=== PATIENT | female | born 1970 | race Caucasian/White ===

== ENCOUNTER → 2018-01-30 | Outpatient (CLI) | payer OTHER ==
[~2018-01-30] MED LIST: ACET80 PO; ALBIPROI INH; ALBU90OI INH; ALBU90OI6 INH; AMIT50 PO; AZIT250 PO; AZIT500 PO; Antivert25 MG PO; BENTYL10 MG PO; BUDE200IP INH; BUSP5 PO; BUTALB-ASPIRIN1 EACH PO; Bactrim Ds Tab1 EACH PO; CEPH500 PO; CLON.1; CLON.1 PO; CODACE30 PO; CODGUAEL PO; CRUTCH2 XX; CRUTCH4 USE; CYCL10 PO; Colace100 MG PO; Colace250 MG PO; DEPAKOTE; DIAZ5 PO; DIBU30TO PR; DIVA250EC; DIVA250EC PO; DIVA500EC; DIVA500EC PO; DOXY100 PO; ESCI10; ESCI10 PO; ESCI20 PO; ESCI5; Esgic Tablet1 EACH PO; GUAI100SY PO; GUAPHELA PO; HYDACE25S PR; HYDACE5; HYDACE5 PO; HYDCHL25; HYDCOR2.5C PR; HYDGUAL120 PO; HYDHCL25 PO; HYDPAM25 PO; HYDR1TAB94; IBUP600; IBUP600 PO; Imitrex50 MG PO; LEVE500 PO; LIDO5TP TOP; LIDO700A20 TOP; LIDOCAINE HCL5 ML TOP; Macrobid 100 M100 MG PO; NAPR500 PO; ONDA4ODT MM; OXYACE5T PO; OXYC5 PO; PANT40; PANT40 PO; PRED10; PROACE100; PROACE100 PO; PROM25; PROM25 PO; PROP10 PO; Pepcid40 MG PO; Percocet 5-3251 EACH PO; Pyridium100 MG PO; Pyridium200 MG PO; QUET100; QUET100 PO; RANI150; RANI150 PO; RXCEPH500 PO; RXCODACET PO; RXHYDACE PO; RXOXYACE PO; RXPROACE PO; RXSULTRIDS PO; RXTRAM50 PO; SUCR1 PO; SULTRIDS PO; SUMA25 PO; TRAM50 PO; Ultram50 MG PO; Valium5 MG PO; Zofran Odt4 MG SL
== END | disposition home or self-care (01) ==
LOC: LAB EV 13:21
DX: R21 Rash and other nonspecific skin eruption (principal)
CPT/HCPCS: 87070; 87077; 87147; 87186; 87205

== ENCOUNTER 2018-07-10 19:29 | Emergency (ER) | payer OTHER ==
[~2018-07-10] VITALS: Ht 157.5 cm; Wt 65.8 kg
[~2018-07-10 19:29] MED LIST changes: -LIDO700A20 TOP; -Macrobid 100 M100 MG PO; -Pyridium100 MG PO
[2018-07-10 20:17] LABS: BASOPHILS ABSOLUTE AUTO 0.07 K/mm3 (0.00-0.23); BASOPHILS PERCENT AUTO 1 % (0-2); EOSINOPHILS ABSOLUTE AUTO 0.36 K/mm3 (0.00-0.68); EOSINOPHILS PERCENT AUTO 4 % (0-6); Hemoglobin 13.9 g/dL (11.5-16.0); IMMATURE GRAN ABSOLUTE AUTO 0.02 K/mm3 (0.00-0.10); IMMATURE GRAN PERCENT AUTO 0 % (0-1); LYMPHOCYTES PERCENT AUTO 43 % (21-46); MONOCYTES ABSOLUTE AUTO 0.71 K/mm3 (0.16-1.47); MONOCYTES PERCENT AUTO 7 % (4-13); Mean Corpuscular HGB 28.3 pg (26.0-34.0); Mean Corpuscular HGB Conc 33.1 g/dL (31.5-36.5); Mean Corpuscular Volume 85 fL (80-100); Mean Platelet Volume 9.3 fL (9.1-12.4); NEUTROPHILS ABSOLUTE AUTO 4.58 K/mm3 (1.96-9.15); NEUTROPHILS PERCENT AUTO 45 % (41-73); Platelet Count 277 K/mm3 (150-400); RDW Coefficient Variation 13.2 % (11.7-14.2); RDW Standard Deviation 41.8 fL (35.1-46.3); Red Blood Cell Count 4.92 M/mm3 (3.80-5.20); White Blood Cell Count 10.14 K/mm3 (4.00-11.30)
[2018-07-10 20:18] LABS: Source, Urine Clean Catch
[2018-07-10 20:22] LABS: Bilirubin, Urine Neg (Neg); Blood, Urine 5+ (Neg); Glucose Qualitative, Urine Neg (Neg); Ketones, Urine Neg (Neg); Leukocyte Esterase, Urine Neg (Neg); Nitrite, Urine Neg (Neg); Protein, Urine 1+ (Neg); Urobilinogen, Urine NORM (Normal); pH, Urine 6.5 (5.0-8.0)
[2018-07-10 20:31] LABS: Appearance, Urine Cloudy (Clear); Color, Urine Yellow (P-Yellow)
[2018-07-10 20:33] LABS: Squamous Epithelial Cells Mod /hpf (Few); White Blood Cells, Urine 0-2 /hpf (0-5)
[2018-07-10 20:34] LABS: Bacteria Few /hpf
[2018-07-10 20:43] LABS: Alanine Aminotransfer (ALT/SGP 55 U/L (12-78); Albumin, Blood 3.6 g/dL (3.4-5.0); Albumin/Globulin Ratio 0.9 (0.8-1.8); Alk Phos 127 U/L (50-136); Anion Gap 8 mmol/L (6-16); Aspartate Aminotrans (AST/SGOT 34 U/L (12-37); Bilirubin, Total 0.4 mg/dL (0.1-1.0); Blood Urea Nitrogen 8 mg/dL (8-24); Bun/Creatinine Ratio 11.6 (12.0-20.0); CO2, Blood 28 mmol/L (21-32); Calcium, Blood 9.2 mg/dL (8.5-10.1); Chloride, Blood 105 mmol/L (98-108); Creatinine, Blood 0.69 mg/dL (0.40-1.00); Glomerular Filtration Rate >60 (60-); Glucose, Blood 97 mg/dL (70-99); Potassium, Blood 3.7 mmol/L (3.5-5.5); Sodium, Blood 141 mmol/L (136-145); Total Protein, Blood 7.6 g/dL (6.4-8.2)
[2018-07-10] MEDS ORDERED: Macrobid 100 M100 MG PO (23:06)
[2018-07-10] MEDS ORDERED: Pyridium100 MG PO (23:06)
== END 2018-07-10 23:26 | disposition home or self-care (01) ==
LOC: ER 19:29
PROVIDERS: Emergency Medicine
DX: R31.9 Hematuria, unspecified (principal); R10.30 Lower abdominal pain, unspecified; F31.9 Bipolar disorder, unspecified; J44.9 Chronic obstructive pulmonary disease, unspecified; I10 Essential (primary) hypertension; F17.210 Nicotine dependence, cigarettes, uncomplicated; Z88.0 Allergy status to penicillin; Z88.5 Allergy status to narcotic agent; Z88.6 Allergy status to analgesic agent; Z88.8 Allergy status to other drugs, medicaments and biological substances; Z91.030 Bee allergy status; Z88.2 Allergy status to sulfonamides; Z79.899 Other long term (current) drug therapy
CPT/HCPCS: 36415; 74176; 80053; 81001; 83690; 85025; 99284-25

== ENCOUNTER 2018-08-02 10:37 | Emergency (ER) | payer OTHER ==
[~2018-08-02] VITALS: Ht 160 cm; Wt 60.3 kg
[~2018-08-02 10:37] MED LIST changes: +Macrobid 100 M100 MG PO; +Pyridium100 MG PO
[2018-08-02] MEDS ORDERED: LIDO700A20 TOP (12:01)
== END 2018-08-02 12:05 | disposition home or self-care (01) ==
LOC: ER 10:37
DX: S20.212A Contusion of left front wall of thorax, initial encounter (principal); F31.9 Bipolar disorder, unspecified; J44.9 Chronic obstructive pulmonary disease, unspecified; I10 Essential (primary) hypertension; F17.200 Nicotine dependence, unspecified, uncomplicated; Z88.0 Allergy status to penicillin; Z88.5 Allergy status to narcotic agent; Z88.6 Allergy status to analgesic agent; Z88.2 Allergy status to sulfonamides; Z91.030 Bee allergy status; Z88.8 Allergy status to other drugs, medicaments and biological substances; Z79.899 Other long term (current) drug therapy; W19.XXXA Unspecified fall, initial encounter
CPT/HCPCS: 71046; 71100

== ENCOUNTER 2018-08-03 20:29 | Emergency (ER) | payer OTHER ==
[~2018-08-03] VITALS: Ht 154.9 cm; Wt 60.3 kg
[~2018-08-03 20:29] MED LIST changes: +LIDO700A20 TOP
== END 2018-08-03 23:34 | disposition home or self-care (01) ==
LOC: ER 20:29
DX: M54.6 Pain in thoracic spine (principal); M25.511 Pain in right shoulder; M25.512 Pain in left shoulder; F31.9 Bipolar disorder, unspecified; J44.9 Chronic obstructive pulmonary disease, unspecified; I10 Essential (primary) hypertension; F17.200 Nicotine dependence, unspecified, uncomplicated; Z88.0 Allergy status to penicillin; Z88.8 Allergy status to other drugs, medicaments and biological substances; Z88.6 Allergy status to analgesic agent; Z88.2 Allergy status to sulfonamides; Z91.030 Bee allergy status; Z79.899 Other long term (current) drug therapy; Y08.89XA Assault by other specified means, initial encounter
CPT/HCPCS: 71046; 72070; 72100; 99283-25

== ENCOUNTER 2018-11-28 12:17 | Day surgery (SDC) | payer OTHER ==
[~2018-11-28] VITALS: Ht 154.9 cm; Wt 61.2 kg
[~2018-11-28 12:17] MED LIST changes: +ACET500 PO; +BUDE.25 NEB; +EPIPEN0.3 MG/0.3 IM
[2018-11-28] MEDS ORDERED: GABA100 PO (12:57)
== END 2018-11-28 14:36 | disposition home or self-care (01) ==
LOC: ORSCSDS 12:17
PROVIDERS: Surgery
PROC: 0DBM8ZX Excision of Descending Colon, Via Natural or Artificial Opening Endoscopic, Diagnostic (ICD-10-PCS; principal; 2018-11-28 13:30)
PROC: 0DBN8ZX Excision of Sigmoid Colon, Via Natural or Artificial Opening Endoscopic, Diagnostic (ICD-10-PCS; principal; 2018-11-28 13:30)
DX: R19.4 Change in bowel habit (principal); K63.5 Polyp of colon; G40.209 Localization-related (focal) (partial) symptomatic epilepsy and epileptic syndromes with complex partial seizures, not intractable, without status epilepticus; R62.59 Other lack of expected normal physiological development in childhood; F25.9 Schizoaffective disorder, unspecified; J45.909 Unspecified asthma, uncomplicated; Z79.899 Other long term (current) drug therapy; Z87.891 Personal history of nicotine dependence
CPT/HCPCS: 88305; J2405; J7120

== ENCOUNTER 2018-11-30 08:43 | Emergency (ER) | payer OTHER ==
[~2018-11-30] VITALS: Ht 154.9 cm; Wt 64.0 kg
[~2018-11-30 08:43] MED LIST changes: +GABA100 PO
[2018-11-30] MEDS ORDERED: Zantac150 MG (09:29)
[2018-11-30 10:17] LABS: BASOPHILS ABSOLUTE AUTO 0.06 K/mm3 (0.00-0.23); BASOPHILS PERCENT AUTO 1 % (0-2); EOSINOPHILS ABSOLUTE AUTO 0.15 K/mm3 (0.00-0.68); EOSINOPHILS PERCENT AUTO 2 % (0-6); Hematocrit 44.6 % (33.0-51.0); Hemoglobin 14.6 g/dL (11.5-16.0); IMMATURE GRAN ABSOLUTE AUTO 0.01 K/mm3 (0.00-0.10); IMMATURE GRAN PERCENT AUTO 0 % (0-1); LYMPHOCYTES ABSOLUTE AUTO 3.52 K/mm3 (0.84-5.20); LYMPHOCYTES PERCENT AUTO 45 % (21-46); MONOCYTES ABSOLUTE AUTO 0.47 K/mm3 (0.16-1.47); MONOCYTES PERCENT AUTO 6 % (4-13); Mean Corpuscular HGB 28.5 pg (26.0-34.0); Mean Corpuscular HGB Conc 32.7 g/dL (31.5-36.5); Mean Corpuscular Volume 87 fL (80-100); NEUTROPHILS ABSOLUTE AUTO 3.57 K/mm3 (1.96-9.15); NEUTROPHILS PERCENT AUTO 46 % (41-73); RDW Standard Deviation 41.1 fL (35.1-46.3); Red Blood Cell Count 5.13 M/mm3 (3.80-5.20); White Blood Cell Count 7.78 K/mm3 (4.00-11.30)
[2018-11-30 10:25] LABS: Platelet Count 92 K/mm3 (150-400)
[2018-11-30 10:36] LABS: Alanine Aminotransfer (ALT/SGP 39 U/L (12-78); Albumin, Blood 4.3 g/dL (3.4-5.0); Albumin/Globulin Ratio 1.1 (0.8-1.8); Alk Phos 122 U/L (50-136); Anion Gap 8 mmol/L (6-16); Aspartate Aminotrans (AST/SGOT 25 U/L (12-37); Blood Urea Nitrogen 10 mg/dL (8-24); Bun/Creatinine Ratio 16.2 (12.0-20.0); CO2, Blood 25 mmol/L (21-32); Calcium, Blood 9.3 mg/dL (8.5-10.1); Chloride, Blood 107 mmol/L (98-108); Creatinine, Blood 0.62 mg/dL (0.40-1.00); Globulin, Blood 3.9 g/dL (2.2-4.0); Glomerular Filtration Rate >60 (60-); Glucose, Blood 81 mg/dL (70-99); Potassium, Blood 3.8 mmol/L (3.5-5.5); Sodium, Blood 140 mmol/L (136-145); Total Protein, Blood 8.2 g/dL (6.4-8.2)
== END 2018-11-30 11:17 | disposition home or self-care (01) ==
LOC: ER 08:43
PROVIDERS: Physician Assistant
DX: R56.9 Unspecified convulsions (principal); J44.9 Chronic obstructive pulmonary disease, unspecified; I10 Essential (primary) hypertension; G43.909 Migraine, unspecified, not intractable, without status migrainosus; F17.200 Nicotine dependence, unspecified, uncomplicated
CPT/HCPCS: 36415; 80053; 85025; 96372; 99284-25; J1885

== ENCOUNTER → 2019-05-23 | Outpatient (CLI) | payer OTHER ==
[~2019-05-23] MED LIST changes: +Acetaminophen325 M1 PO; +LOSARTAN POTASS50 MG PO; +Oxybutynin Chlor5 M1 PO; +Zantac150 MG PO; +Zofran8 MG PO
== END | disposition home or self-care (01) ==
LOC: LAB SHORT 16:30 → LAB 16:30
DX: M79.672 Pain in left foot (principal)
CPT/HCPCS: 84550

== ENCOUNTER 2019-05-25 11:01 | Emergency (ER) | payer OTHER ==
[~2019-05-25] VITALS: Ht 154.9 cm; Wt 62.6 kg
[~2019-05-25 11:01] MED LIST changes: -Acetaminophen325 M1 PO; -LOSARTAN POTASS50 MG PO; -Oxybutynin Chlor5 M1 PO; -Zofran8 MG PO
[2019-05-25] MEDS ORDERED: LOSARTAN POTASS50 MG PO (12:30)
[2019-05-25] MEDS ORDERED: CYCL10 PO (12:31)
[2019-05-25] MEDS ORDERED: Oxybutynin Chlor5 M1 PO (12:31)
[2019-05-25] MEDS ORDERED: HYDPAM25 PO (12:32)
[2019-05-25 12:36] LABS: BASOPHILS ABSOLUTE AUTO 0.06 K/mm3 (0.00-0.23); BASOPHILS PERCENT AUTO 1 % (0-2); EOSINOPHILS ABSOLUTE AUTO 0.22 K/mm3 (0.00-0.68); EOSINOPHILS PERCENT AUTO 2 % (0-6); Hematocrit 38.5 % (33.0-51.0); IMMATURE GRAN ABSOLUTE AUTO 0.04 K/mm3 (0.00-0.10); IMMATURE GRAN PERCENT AUTO 0 % (0-1); LYMPHOCYTES ABSOLUTE AUTO 3.42 K/mm3 (0.84-5.20); LYMPHOCYTES PERCENT AUTO 29 % (21-46); MONOCYTES PERCENT AUTO 4 % (4-13); Mean Corpuscular HGB 29.7 pg (26.0-34.0); Mean Corpuscular HGB Conc 33.8 g/dL (31.5-36.5); Mean Corpuscular Volume 88 fL (80-100); Mean Platelet Volume 8.7 fL (9.1-12.4); NEUTROPHILS ABSOLUTE AUTO 7.52 K/mm3 (1.96-9.15); NEUTROPHILS PERCENT AUTO 64 % (41-73); Platelet Count 245 K/mm3 (150-400); RDW Standard Deviation 41.6 fL (35.1-46.3); Red Blood Cell Count 4.37 M/mm3 (3.80-5.20); White Blood Cell Count 11.76 K/mm3 (4.00-11.30)
[2019-05-25 12:56] LABS: Alanine Aminotransfer (ALT/SGP 44 U/L (12-78); Albumin, Blood 3.7 g/dL (3.4-5.0); Alk Phos 119 U/L (50-136); Anion Gap 5 mmol/L (6-16); Aspartate Aminotrans (AST/SGOT 20 U/L (12-37); Bilirubin, Total 0.4 mg/dL (0.1-1.0); Blood Urea Nitrogen 8 mg/dL (8-24); CO2, Blood 28 mmol/L (21-32); Chloride, Blood 109 mmol/L (98-108); Creatinine, Blood 0.57 mg/dL (0.40-1.00); Globulin, Blood 3.6 g/dL (2.2-4.0); Glomerular Filtration Rate >60 (60-); Glucose, Blood 89 mg/dL (70-99); Potassium, Blood 3.9 mmol/L (3.5-5.5); Sodium, Blood 142 mmol/L (136-145); Total Protein, Blood 7.3 g/dL (6.4-8.2)
[2019-05-25] MEDS ORDERED: Zofran8 MG PO (13:40)
[2019-05-25] MEDS ORDERED: Acetaminophen325 M1 PO (13:40)
== END 2019-05-25 13:46 | disposition home or self-care (01) ==
LOC: ER 11:01
PROVIDERS: Emergency Medicine
DX: S93.602A Unspecified sprain of left foot, initial encounter (principal); F31.9 Bipolar disorder, unspecified; J44.9 Chronic obstructive pulmonary disease, unspecified; Z88.0 Allergy status to penicillin; Z88.6 Allergy status to analgesic agent; Z88.2 Allergy status to sulfonamides; Z88.5 Allergy status to narcotic agent; Z91.030 Bee allergy status; Z88.8 Allergy status to other drugs, medicaments and biological substances; I10 Essential (primary) hypertension; G43.909 Migraine, unspecified, not intractable, without status migrainosus; F17.200 Nicotine dependence, unspecified, uncomplicated; W01.0XXA Fall on same level from slipping, tripping and stumbling without subsequent striking against object, initial encounter
CPT/HCPCS: 36415; 73630; 80053; 83690; 85025; 96361; 96374; 99283-25; J2405; J7120

== ENCOUNTER 2019-06-06 13:50 | Emergency (ER) | payer OTHER ==
[~2019-06-06] VITALS: Ht 154.9 cm; Wt 62.6 kg
[~2019-06-06 13:50] MED LIST changes: +Acetaminophen325 M1 PO; +LOSARTAN POTASS50 MG PO; +Oxybutynin Chlor5 M1 PO; +Zofran8 MG PO
== END 2019-06-06 17:44 | disposition left against medical advice (07) ==
LOC: ER 13:50
DX: Z53.21 Procedure and treatment not carried out due to patient leaving prior to being seen by health care provider (principal)

== ENCOUNTER 2019-11-02 21:10 | Emergency (ER) | payer OTHER ==
[~2019-11-02] VITALS: Ht 154.9 cm; Wt 75.8 kg
[2019-11-02 21:42] LABS: Source, Urine Clean Catch
[2019-11-02 21:43] LABS: BASOPHILS ABSOLUTE AUTO 0.06 K/mm3 (0.00-0.23); BASOPHILS PERCENT AUTO 1 % (0-2); EOSINOPHILS ABSOLUTE AUTO 0.29 K/mm3 (0.00-0.68); EOSINOPHILS PERCENT AUTO 3 % (0-6); Hematocrit 40.6 % (33.0-51.0); Hemoglobin 13.3 g/dL (11.5-16.0); IMMATURE GRAN ABSOLUTE AUTO 0.02 K/mm3 (0.00-0.10); IMMATURE GRAN PERCENT AUTO 0 % (0-1); LYMPHOCYTES ABSOLUTE AUTO 3.24 K/mm3 (0.84-5.20); LYMPHOCYTES PERCENT AUTO 34 % (21-46); MONOCYTES ABSOLUTE AUTO 0.56 K/mm3 (0.16-1.47); MONOCYTES PERCENT AUTO 6 % (4-13); Mean Corpuscular HGB 28.2 pg (26.0-34.0); Mean Corpuscular HGB Conc 32.8 g/dL (31.5-36.5); Mean Corpuscular Volume 86 fL (80-100); Mean Platelet Volume 9.2 fL (9.1-12.4); NEUTROPHILS ABSOLUTE AUTO 5.28 K/mm3 (1.96-9.15); NEUTROPHILS PERCENT AUTO 56 % (41-73); Platelet Count 240 K/mm3 (150-400); RDW Standard Deviation 41.1 fL (35.1-46.3); Red Blood Cell Count 4.71 M/mm3 (3.80-5.20); White Blood Cell Count 9.45 K/mm3 (4.00-11.30)
[2019-11-02 21:44] LABS: Appearance, Urine Clear (Clear); Bilirubin, Urine Neg (Neg); Blood, Urine 1+ (Neg); Color, Urine Yellow (P-Yellow); Glucose Qualitative, Urine Neg (Neg); Ketones, Urine Neg (Neg); Leukocyte Esterase, Urine Neg (Neg); Nitrite, Urine Neg (Neg); Protein, Urine Neg (Neg); Urobilinogen, Urine NORM (Normal)
[2019-11-02 21:53] LABS: Bacteria Few /hpf; Squamous Epithelial Cells Few /hpf (Few); White Blood Cells, Urine 0-2 /hpf (0-5)
[2019-11-02 22:03] LABS: Alanine Aminotransfer (ALT/SGP 37 U/L (12-78); Albumin/Globulin Ratio 1.1 (0.8-1.8); Alk Phos 98 U/L (50-136); Anion Gap 5 mmol/L (6-16); Aspartate Aminotrans (AST/SGOT 20 U/L (12-37); Bilirubin, Total 0.3 mg/dL (0.1-1.0); Blood Urea Nitrogen 11 mg/dL (8-24); Bun/Creatinine Ratio 17.5 (12.0-20.0); CO2, Blood 29 mmol/L (21-32); Calcium, Blood 9.5 mg/dL (8.5-10.1); Chloride, Blood 108 mmol/L (98-108); Creatinine, Blood 0.63 mg/dL (0.40-1.00); Globulin, Blood 3.6 g/dL (2.2-4.0); Glomerular Filtration Rate >60 (60-); Glucose, Blood 105 mg/dL (70-99); Sodium, Blood 142 mmol/L (136-145); Total Protein, Blood 7.6 g/dL (6.4-8.2); Troponin I <0.015 ng/mL (0.000-0.040)
[2019-11-02] MEDS ORDERED: DIVA500EC PO (22:39)
[2019-11-05 14:34] LABS: Valproic Acid 3.4 ug/mL (50.0-100.0)
== END 2019-11-02 22:59 | disposition home or self-care (01) ==
LOC: ER 21:10
PROVIDERS: Family Medicine; Physician Assistant
DX: R56.9 Unspecified convulsions (principal); I10 Essential (primary) hypertension; F31.9 Bipolar disorder, unspecified; J44.9 Chronic obstructive pulmonary disease, unspecified; F17.200 Nicotine dependence, unspecified, uncomplicated; Z86.73 Personal history of transient ischemic attack (TIA), and cerebral infarction without residual deficits; Z79.899 Other long term (current) drug therapy; Z79.51 Long term (current) use of inhaled steroids
CPT/HCPCS: 36415; 74022; 80053; 80164; 81001; 83690; 84484; 85025; 93005; 93010; 96374; 99284-25; J2405

== ENCOUNTER 2019-11-13 20:14 | Observation (INO) | payer OTHER ==
[~2019-11-13] VITALS: Ht 154.9 cm; Wt 65.8 kg
[2019-11-13 20:53] LABS: Source, Urine Clean Catch
[2019-11-13 20:56] LABS: BASOPHILS ABSOLUTE AUTO 0.06 K/mm3 (0.00-0.23); BASOPHILS PERCENT AUTO 1 % (0-2); EOSINOPHILS ABSOLUTE AUTO 0.15 K/mm3 (0.00-0.68); EOSINOPHILS PERCENT AUTO 2 % (0-6); Hematocrit 42.2 % (33.0-51.0); IMMATURE GRAN ABSOLUTE AUTO 0.03 K/mm3 (0.00-0.10); IMMATURE GRAN PERCENT AUTO 0 % (0-1); LYMPHOCYTES ABSOLUTE AUTO 3.84 K/mm3 (0.84-5.20); LYMPHOCYTES PERCENT AUTO 37 % (21-46); MONOCYTES ABSOLUTE AUTO 0.72 K/mm3 (0.16-1.47); MONOCYTES PERCENT AUTO 7 % (4-13); Mean Corpuscular HGB 28.1 pg (26.0-34.0); Mean Corpuscular HGB Conc 33.2 g/dL (31.5-36.5); Mean Corpuscular Volume 85 fL (80-100); Mean Platelet Volume 9.5 fL (9.1-12.4); NEUTROPHILS ABSOLUTE AUTO 5.52 K/mm3 (1.96-9.15); NEUTROPHILS PERCENT AUTO 53 % (41-73); Platelet Count 252 K/mm3 (150-400); RDW Standard Deviation 40.3 fL (35.1-46.3); Red Blood Cell Count 4.98 M/mm3 (3.80-5.20); White Blood Cell Count 10.32 K/mm3 (4.00-11.30)
[2019-11-13 20:58] LABS: Bilirubin, Urine Neg (Neg); Blood, Urine 4+ (Neg); Glucose Qualitative, Urine Neg (Neg); Ketones, Urine 1+ (Neg); Leukocyte Esterase, Urine 1+ (Neg); Nitrite, Urine Neg (Neg); Protein, Urine Neg (Neg); Urobilinogen, Urine NORM (Normal)
[2019-11-13 21:08] LABS: Appearance, Urine Clear (Clear); Color, Urine Yellow (P-Yellow)
[2019-11-13 21:09] LABS: White Blood Cells, Urine 0-2 /hpf (0-5)
[2019-11-13 21:10] LABS: Bacteria Few /hpf; Mucus Light (0-Heavy); Squamous Epithelial Cells Mod /hpf (Few)
[2019-11-13 21:12] LABS: U Amphetamine Screen Not Detected; U Barbituate Screen Not Detected; U Benzodiazapine Screen Not Detected; U Buprenorphine Screen Not Detected; U Cannabinoids Screen DETECTED; U Cocaine Screen Not Detected; U Methadone Screen Not Detected; U Methamphetamine Screen Not Detected; U Opiates Screen Not Detected; U Oxycodone Screen Not Detected; U Phencyclidine Screen Not Detected; U Propoxyphene Screen Not Detected
[2019-11-13 21:15] LABS: Ethanol (Alcohol), Blood, Med <3 mg/dL; Salicylate 3.9 mg/dL (2.8-20.0)
[2019-11-13 21:16] LABS: Alanine Aminotransfer (ALT/SGP 30 U/L (12-78); Albumin, Blood 4.1 g/dL (3.4-5.0); Alk Phos 103 U/L (50-136); Anion Gap 6 mmol/L (6-16); Aspartate Aminotrans (AST/SGOT 22 U/L (12-37); Bilirubin, Total 0.4 mg/dL (0.1-1.0); Blood Urea Nitrogen 12 mg/dL (8-24); Bun/Creatinine Ratio 17.8 (12.0-20.0); CO2, Blood 25 mmol/L (21-32); Calcium, Blood 9.3 mg/dL (8.5-10.1); Chloride, Blood 111 mmol/L (98-108); Creatinine, Blood 0.68 mg/dL (0.40-1.00); Globulin, Blood 4.1 g/dL (2.2-4.0); Glomerular Filtration Rate >60 (60-); Glucose, Blood 110 mg/dL (70-99); Potassium, Blood 3.8 mmol/L (3.5-5.5); Sodium, Blood 142 mmol/L (136-145); Total Protein, Blood 8.2 g/dL (6.4-8.2)
[2019-11-13 21:23] LABS: Acetaminophen, Random <2.0 ug/mL (10.0-30.0)
[2019-11-13] MEDS ORDERED: MELATONIN10 M2 PO (21:49)
[2019-11-14 10:46] LABS: Valproic Acid 24.2 ug/mL (50.0-100.0)
[2019-11-14] MEDS ORDERED: GABA300 PO (11:48)
[2019-11-14] MEDS ORDERED: ABILIFY MYCITE10 MG PO (11:49)
[2019-11-14] MEDS ORDERED: ONDA4 PO (11:50)
[2019-11-14] MEDS ORDERED: OMEPRAZOLE20 MG PO (11:50)
[2019-11-14] MEDS ORDERED: SUMA25 PO (11:51)
== END 2019-11-15 12:25 | disposition home or self-care (01) ==
LOC: ER 20:14 → EOR 20:15 → ER 11-14 04:17 → EOR 11-14 04:17
PROVIDERS: Physician Assistant; ADMIT Emergency Medicine
DX: F31.62 Bipolar disorder, current episode mixed, moderate (principal); F41.9 Anxiety disorder, unspecified; F12.10 Cannabis abuse, uncomplicated; F17.210 Nicotine dependence, cigarettes, uncomplicated; F70 Mild intellectual disabilities; J44.9 Chronic obstructive pulmonary disease, unspecified; I10 Essential (primary) hypertension; G89.29 Other chronic pain; M54.9 Dorsalgia, unspecified; G43.909 Migraine, unspecified, not intractable, without status migrainosus; G40.909 Epilepsy, unspecified, not intractable, without status epilepticus; Z79.899 Other long term (current) drug therapy; Z88.0 Allergy status to penicillin; Z88.2 Allergy status to sulfonamides; Z88.5 Allergy status to narcotic agent; Z88.6 Allergy status to analgesic agent; Z88.8 Allergy status to other drugs, medicaments and biological substances; Z91.038 Other insect allergy status; Z90.49 Acquired absence of other specified parts of digestive tract; Z90.710 Acquired absence of both cervix and uterus; Z90.722 Acquired absence of ovaries, bilateral; Z90.79 Acquired absence of other genital organ(s)
CPT/HCPCS: 36415; 80053; 80164; 81001; 85025; 87086; 99285; G0378; G0480; Q3014

== ENCOUNTER → 2020-08-22 | Outpatient (CLI) | payer OTHER ==
[~2020-08-22] MED LIST changes: +ABILIFY MYCITE10 MG PO; +CYCL10; +Depakote ER500 MG PO; +EPIPEN 2-P0.3 MG/0.1 IM; +GABA300 PO; +LOSARTAN POTASS50 M1 PO; +MELATONIN10 M2 PO; +Miralax17 GM PO; +OLAN10 PO; +OMEPRAZOLE MAGN20 M1 PO; +OMEPRAZOLE20 MG PO; +ONDA4 PO; +Prednisone20 MG PO; +Ventolin/Prove6.7 GM; +Vistaril50 MG
[2020-08-22 18:46] LABS: BASOPHILS ABSOLUTE AUTO 0.04 K/mm3 (0.00-0.23); BASOPHILS PERCENT AUTO 0 % (0-2); EOSINOPHILS ABSOLUTE AUTO 0.27 K/mm3 (0.00-0.68); EOSINOPHILS PERCENT AUTO 3 % (0-6); Hematocrit 44.9 % (33.0-51.0); Hemoglobin 14.8 g/dL (11.5-16.0); IMMATURE GRAN ABSOLUTE AUTO 0.05 K/mm3 (0.00-0.10); IMMATURE GRAN PERCENT AUTO 1 % (0-1); LYMPHOCYTES ABSOLUTE AUTO 4.09 K/mm3 (0.84-5.20); LYMPHOCYTES PERCENT AUTO 40 % (21-46); MONOCYTES ABSOLUTE AUTO 0.79 K/mm3 (0.16-1.47); MONOCYTES PERCENT AUTO 8 % (4-13); Mean Corpuscular HGB 29.4 pg (26.0-34.0); Mean Corpuscular Volume 89 fL (80-100); Mean Platelet Volume 10.5 fL (9.1-12.4); NEUTROPHILS PERCENT AUTO 48 % (41-73); Platelet Count 196 K/mm3 (150-400); RDW Standard Deviation 46.3 fL (35.1-46.3); Red Blood Cell Count 5.03 M/mm3 (3.80-5.20); White Blood Cell Count 10.14 K/mm3 (4.00-11.30)
[2020-08-22 19:17] LABS: Alanine Aminotransfer (ALT/SGP 72 U/L (12-78); Albumin, Blood 3.5 g/dL (3.4-5.0); Albumin/Globulin Ratio 0.9 (0.8-1.8); Alk Phos 133 U/L (50-136); Anion Gap 6 mmol/L (6-16); Aspartate Aminotrans (AST/SGOT 37 U/L (12-37); Bilirubin, Total 0.6 mg/dL (0.1-1.0); Blood Urea Nitrogen 9 mg/dL (8-24); Bun/Creatinine Ratio 13.3 (12.0-20.0); CO2, Blood 29 mmol/L (21-32); Calcium, Blood 9.6 mg/dL (8.5-10.1); Chloride, Blood 108 mmol/L (98-108); Creatinine, Blood 0.68 mg/dL (0.40-1.00); Globulin, Blood 3.9 g/dL (2.2-4.0); Glomerular Filtration Rate >60 (60-); Glucose, Blood 81 mg/dL (70-99); Potassium, Blood 4.3 mmol/L (3.5-5.5); Sodium, Blood 143 mmol/L (136-145); Total Protein, Blood 7.4 g/dL (6.4-8.2)
== END | disposition home or self-care (01) ==
LOC: LAB SHORT 17:30 → LAB 17:30
PROVIDERS: Nurse Practitioner
DX: R10.32 Left lower quadrant pain (principal)
CPT/HCPCS: 80053; 85025

== ENCOUNTER 2020-09-09 19:54 | Emergency (ER) | payer OTHER ==
[~2020-09-09] VITALS: Ht 154.9 cm; Wt 73.0 kg
[~2020-09-09 19:54] MED LIST changes: -LOSARTAN POTASS50 M1 PO
[2020-09-09 20:18] LABS: Source, Urine Clean Catch
[2020-09-09 20:23] LABS: BASOPHILS ABSOLUTE AUTO 0.05 K/mm3 (0.00-0.23); BASOPHILS PERCENT AUTO 0 % (0-2); EOSINOPHILS ABSOLUTE AUTO 0.35 K/mm3 (0.00-0.68); EOSINOPHILS PERCENT AUTO 3 % (0-6); Hemoglobin 15.4 g/dL (11.5-16.0); IMMATURE GRAN ABSOLUTE AUTO 0.04 K/mm3 (0.00-0.10); IMMATURE GRAN PERCENT AUTO 0 % (0-1); LYMPHOCYTES ABSOLUTE AUTO 4.02 K/mm3 (0.84-5.20); LYMPHOCYTES PERCENT AUTO 35 % (21-46); MONOCYTES ABSOLUTE AUTO 0.98 K/mm3 (0.16-1.47); MONOCYTES PERCENT AUTO 9 % (4-13); Mean Corpuscular HGB 29.1 pg (26.0-34.0); Mean Corpuscular HGB Conc 33.5 g/dL (31.5-36.5); Mean Corpuscular Volume 87 fL (80-100); NEUTROPHILS ABSOLUTE AUTO 6.11 K/mm3 (1.96-9.15); NEUTROPHILS PERCENT AUTO 53 % (41-73); Platelet Count 175 K/mm3 (150-400); RDW Coefficient Variation 13.2 % (11.7-14.2); RDW Standard Deviation 41.9 fL (35.1-46.3); Red Blood Cell Count 5.29 M/mm3 (3.80-5.20); White Blood Cell Count 11.55 K/mm3 (4.00-11.30)
[2020-09-09 20:24] LABS: Appearance, Urine Clear (Clear); Bilirubin, Urine Neg (Neg); Blood, Urine 4+ (Neg); Color, Urine Yellow (P-Yellow); Glucose Qualitative, Urine Neg (Neg); Ketones, Urine 1+ (Neg); Leukocyte Esterase, Urine Neg (Neg); Nitrite, Urine Neg (Neg); Protein, Urine Neg (Neg); Urobilinogen, Urine NORM (Normal)
[2020-09-09 20:33] LABS: Bacteria Few /hpf; Squamous Epithelial Cells Mod /hpf (Few); White Blood Cells, Urine 0-2 /hpf (0-5)
[2020-09-09 20:48] LABS: Alanine Aminotransfer (ALT/SGP 63 U/L (12-78); Albumin, Blood 3.6 g/dL (3.4-5.0); Albumin/Globulin Ratio 0.9 (0.8-1.8); Alk Phos 91 U/L (50-136); Anion Gap 6 mmol/L (6-16); Aspartate Aminotrans (AST/SGOT 39 U/L (12-37); Bilirubin, Total 0.5 mg/dL (0.1-1.0); Blood Urea Nitrogen 7 mg/dL (8-24); Bun/Creatinine Ratio 10.8 (12.0-20.0); CO2, Blood 28 mmol/L (21-32); Calcium, Blood 9.3 mg/dL (8.5-10.1); Chloride, Blood 106 mmol/L (98-108); Creatinine, Blood 0.65 mg/dL (0.40-1.00); Globulin, Blood 4.1 g/dL (2.2-4.0); Glomerular Filtration Rate >60 (60-); Glucose, Blood 99 mg/dL (70-99); Potassium, Blood 4.1 mmol/L (3.5-5.5); Sodium, Blood 140 mmol/L (136-145); Total Protein, Blood 7.7 g/dL (6.4-8.2)
[2020-09-09] MEDS ORDERED: LOSARTAN POTASS50 M1 PO (21:44)
[2020-09-09] MEDS ORDERED: ONDA4ODT MM (22:12)
== END 2020-09-09 22:39 | disposition home or self-care (01) ==
LOC: ER 19:54
PROVIDERS: Emergency Medicine
DX: R10.9 Unspecified abdominal pain (principal); R11.2 Nausea with vomiting, unspecified; I10 Essential (primary) hypertension; J44.9 Chronic obstructive pulmonary disease, unspecified; F17.210 Nicotine dependence, cigarettes, uncomplicated; Z87.19 Personal history of other diseases of the digestive system; Z88.0 Allergy status to penicillin; Z88.6 Allergy status to analgesic agent; Z88.2 Allergy status to sulfonamides; Z88.8 Allergy status to other drugs, medicaments and biological substances; Z91.030 Bee allergy status; Z79.899 Other long term (current) drug therapy; Z86.73 Personal history of transient ischemic attack (TIA), and cerebral infarction without residual deficits
CPT/HCPCS: 36415; 80053; 81001; 83690; 85025; 96374; 96376; 99283-25; J2405

== ENCOUNTER → 2020-09-17 | Outpatient (CLI) | payer OTHER ==
[~2020-09-17] MED LIST changes: +LOSARTAN POTASS50 M1 PO; +[UNRECOGNIZED DRUG - REMARK]
[2020-09-17 15:40] LABS: Source, Urine Clean Catch
[2020-09-17 17:19] LABS: Appearance, Urine Clear (Clear); Bilirubin, Urine Neg (Neg); Blood, Urine 3+ (Neg); Color, Urine Yellow (P-Yellow); Glucose Qualitative, Urine Neg (Neg); Ketones, Urine 1+ (Neg); Leukocyte Esterase, Urine Neg (Neg); Nitrite, Urine Neg (Neg); Protein, Urine 1+ (Neg); Urobilinogen, Urine 2+ (Normal); pH, Urine 6.5 (5.0-8.0)
[2020-09-17 17:32] LABS: Squamous Epithelial Cells Mod /hpf (Few); White Blood Cells, Urine 0-2 /hpf (0-5)
[2020-09-17 17:33] LABS: Amorphous Light (0-Heavy); Bacteria Few /hpf; Granular Casts 0-2 /lpf (0); Mucus Light (0-Heavy)
== END | disposition home or self-care (01) ==
LOC: LAB UCHC 15:39 → LAB SHORT 15:39
PROVIDERS: Family Medicine
DX: R31.9 Hematuria, unspecified (principal)
CPT/HCPCS: 81001

== ENCOUNTER 2020-09-28 20:13 | Emergency (ER) | payer OTHER ==
[~2020-09-28] VITALS: Ht 154.9 cm; Wt 68.5 kg
[~2020-09-28 20:13] MED LIST changes: -[UNRECOGNIZED DRUG - REMARK]
[2020-09-29] MEDS ORDERED: [UNRECOGNIZED DRUG - REMARK] (03:09)
[2020-09-29 03:29] LABS: Source, Urine Clean Catch
[2020-09-29 03:32] LABS: Appearance, Urine Clear (Clear); Blood, Urine 4+ (Neg); Color, Urine Amber (P-Yellow); Glucose Qualitative, Urine Neg (Neg); Ketones, Urine 1+ (Neg); Leukocyte Esterase, Urine 2+ (Neg); Nitrite, Urine Pos (Neg); Protein, Urine 2+ (Neg); Specific Gravity, Urine 1.025 (1.003-1.022); Urobilinogen, Urine 1+ (Normal)
[2020-09-29 03:34] LABS: BASOPHILS ABSOLUTE AUTO 0.03 K/mm3 (0.00-0.23); BASOPHILS PERCENT AUTO 0 % (0-2); EOSINOPHILS ABSOLUTE AUTO 0.27 K/mm3 (0.00-0.68); EOSINOPHILS PERCENT AUTO 3 % (0-6); Hematocrit 46.1 % (33.0-51.0); Hemoglobin 15.1 g/dL (11.5-16.0); IMMATURE GRAN ABSOLUTE AUTO 0.05 K/mm3 (0.00-0.10); IMMATURE GRAN PERCENT AUTO 1 % (0-1); LYMPHOCYTES ABSOLUTE AUTO 3.88 K/mm3 (0.84-5.20); LYMPHOCYTES PERCENT AUTO 43 % (21-46); MONOCYTES PERCENT AUTO 10 % (4-13); Mean Corpuscular HGB 28.9 pg (26.0-34.0); Mean Corpuscular HGB Conc 32.8 g/dL (31.5-36.5); Mean Corpuscular Volume 88 fL (80-100); Mean Platelet Volume 9.9 fL (9.1-12.4); NEUTROPHILS ABSOLUTE AUTO 3.82 K/mm3 (1.96-9.15); NEUTROPHILS PERCENT AUTO 43 % (41-73); Platelet Count 118 K/mm3 (150-400); RDW Coefficient Variation 13.2 % (11.7-14.2); Red Blood Cell Count 5.23 M/mm3 (3.80-5.20); White Blood Cell Count 8.95 K/mm3 (4.00-11.30)
[2020-09-29 03:36] LABS: Bilirubin, Urine 1+ (Neg)
[2020-09-29 03:37] LABS: Bacteria Many /hpf; Mucus Light (0-Heavy); Squamous Epithelial Cells Mod /hpf (Few)
[2020-09-29 03:50] LABS: Albumin, Blood 3.7 g/dL (3.4-5.0); Bilirubin, Total 0.4 mg/dL (0.1-1.0); Bun/Creatinine Ratio 16.2 (12.0-20.0); Calcium, Blood 9.5 mg/dL (8.5-10.1); Creatinine, Blood 1.05 mg/dL (0.40-1.00); Globulin, Blood 3.6 g/dL (2.2-4.0); Potassium, Blood 3.9 mmol/L (3.5-5.5); Total Protein, Blood 7.3 g/dL (6.4-8.2)
== END 2020-09-29 07:01 | disposition home or self-care (01) ==
LOC: ER 20:13
PROVIDERS: Emergency Medicine
DX: N13.6 Pyonephrosis (principal); J44.9 Chronic obstructive pulmonary disease, unspecified; F31.9 Bipolar disorder, unspecified; G40.909 Epilepsy, unspecified, not intractable, without status epilepticus; I10 Essential (primary) hypertension; F17.210 Nicotine dependence, cigarettes, uncomplicated; Z88.0 Allergy status to penicillin; Z88.6 Allergy status to analgesic agent; Z88.1 Allergy status to other antibiotic agents; Z91.030 Bee allergy status; Z79.899 Other long term (current) drug therapy; Z86.73 Personal history of transient ischemic attack (TIA), and cerebral infarction without residual deficits
CPT/HCPCS: 36415; 74177; 80053; 81001; 83605; 83690; 85025; 96365; 96375; 99284; A9270-GY; J0696; J2270; J2405; Q9967

== ENCOUNTER 2020-10-11 15:31 | Emergency (ER) | payer OTHER ==
[~2020-10-11] VITALS: Ht 154.9 cm; Wt 68.5 kg
[~2020-10-11 15:31] MED LIST changes: +[UNRECOGNIZED DRUG - REMARK]
[2020-10-11 16:47] LABS: BASOPHILS ABSOLUTE AUTO 0.06 K/mm3 (0.00-0.23); BASOPHILS PERCENT AUTO 1 % (0-2); EOSINOPHILS PERCENT AUTO 3 % (0-6); Hematocrit 41.7 % (33.0-51.0); Hemoglobin 13.9 g/dL (11.5-16.0); IMMATURE GRAN ABSOLUTE AUTO 0.07 K/mm3 (0.00-0.10); IMMATURE GRAN PERCENT AUTO 1 % (0-1); LYMPHOCYTES ABSOLUTE AUTO 2.86 K/mm3 (0.84-5.20); LYMPHOCYTES PERCENT AUTO 27 % (21-46); MONOCYTES ABSOLUTE AUTO 0.92 K/mm3 (0.16-1.47); MONOCYTES PERCENT AUTO 9 % (4-13); Mean Corpuscular HGB 29.4 pg (26.0-34.0); Mean Corpuscular HGB Conc 33.3 g/dL (31.5-36.5); Mean Corpuscular Volume 88 fL (80-100); Mean Platelet Volume 8.6 fL (9.1-12.4); NEUTROPHILS ABSOLUTE AUTO 6.54 K/mm3 (1.96-9.15); NEUTROPHILS PERCENT AUTO 61 % (41-73); Platelet Count 173 K/mm3 (150-400); RDW Coefficient Variation 13.2 % (11.7-14.2); RDW Standard Deviation 42.9 fL (35.1-46.3); Red Blood Cell Count 4.72 M/mm3 (3.80-5.20); White Blood Cell Count 10.75 K/mm3 (4.00-11.30)
[2020-10-11 17:13] LABS: Alanine Aminotransfer (ALT/SGP 40 U/L (12-78); Albumin, Blood 3.3 g/dL (3.4-5.0); Albumin/Globulin Ratio 0.8 (0.8-1.8); Alk Phos 107 U/L (50-136); Anion Gap 9 mmol/L (6-16); Aspartate Aminotrans (AST/SGOT 33 U/L (12-37); Bilirubin, Total 0.4 mg/dL (0.1-1.0); Blood Urea Nitrogen 13 mg/dL (8-24); Bun/Creatinine Ratio 20.1 (12.0-20.0); CO2, Blood 27 mmol/L (21-32); Calcium, Blood 9.7 mg/dL (8.5-10.1); Chloride, Blood 107 mmol/L (98-108); Creatinine, Blood 0.65 mg/dL (0.40-1.00); Globulin, Blood 3.9 g/dL (2.2-4.0); Glomerular Filtration Rate >60 (60-); Glucose, Blood 89 mg/dL (70-99); Potassium, Blood 4.3 mmol/L (3.5-5.5); Sodium, Blood 143 mmol/L (136-145); Total Protein, Blood 7.2 g/dL (6.4-8.2)
[2020-10-11 19:36] LABS: Source, Urine Clean Catch
[2020-10-11 19:41] LABS: Appearance, Urine Clear (Clear); Bilirubin, Urine Neg (Neg); Blood, Urine 4+ (Neg); Color, Urine Yellow (P-Yellow); Glucose Qualitative, Urine Neg (Neg); Ketones, Urine Neg (Neg); Leukocyte Esterase, Urine 3+ (Neg); Nitrite, Urine Neg (Neg); Protein, Urine 1+ (Neg); Urobilinogen, Urine NORM (Normal)
[2020-10-11 19:50] LABS: Bacteria Mod /hpf; Mucus Light (0-Heavy); Squamous Epithelial Cells Few /hpf (Few)
== END 2020-10-11 20:19 | disposition home or self-care (01) ==
LOC: ER 15:31
PROVIDERS: Physician Assistant; Student in an Organized Health Care Education/Training Program
DX: R10.9 Unspecified abdominal pain (principal); R30.0 Dysuria; G89.18 Other acute postprocedural pain; F31.9 Bipolar disorder, unspecified; J44.9 Chronic obstructive pulmonary disease, unspecified; I10 Essential (primary) hypertension; G40.909 Epilepsy, unspecified, not intractable, without status epilepticus; F17.210 Nicotine dependence, cigarettes, uncomplicated; Z79.899 Other long term (current) drug therapy; Z87.442 Personal history of urinary calculi; Z88.0 Allergy status to penicillin; Z88.6 Allergy status to analgesic agent; Z88.1 Allergy status to other antibiotic agents; Z91.030 Bee allergy status; Z88.2 Allergy status to sulfonamides; Z88.5 Allergy status to narcotic agent; Z86.73 Personal history of transient ischemic attack (TIA), and cerebral infarction without residual deficits
CPT/HCPCS: 36415; 80053; 81001; 83690; 85025; 87077; 87086; 87186; 99284

== ENCOUNTER → 2021-02-23 | Outpatient (CLI) | payer OTHER | LOC: LAB SHORT 07:57 | DX: B35.1 Tinea unguium (principal); L60.2 Onychogryphosis | CPT/HCPCS: 88304; 88312 ==

== ENCOUNTER 2022-03-22 11:18 | Emergency (ER) | payer OTHER ==
[~2022-03-22] VITALS: Ht 154.9 cm; Wt 73.0 kg
[2022-03-22 12:25] LABS: BASOPHILS ABSOLUTE AUTO 0.03 K/mm3 (0.00-0.23); BASOPHILS PERCENT AUTO 0 % (0-2); EOSINOPHILS ABSOLUTE AUTO 0.15 K/mm3 (0.00-0.68); EOSINOPHILS PERCENT AUTO 2 % (0-6); Hematocrit 44.7 % (33.0-51.0); Hemoglobin 15.5 g/dL (11.5-16.0); IMMATURE GRAN ABSOLUTE AUTO 0.05 K/mm3 (0.00-0.10); IMMATURE GRAN PERCENT AUTO 1 % (0-1); LYMPHOCYTES ABSOLUTE AUTO 3.18 K/mm3 (0.84-5.20); LYMPHOCYTES PERCENT AUTO 36 % (21-46); MONOCYTES ABSOLUTE AUTO 0.89 K/mm3 (0.16-1.47); MONOCYTES PERCENT AUTO 10 % (4-13); Mean Corpuscular HGB 29.8 pg (26.0-34.0); Mean Corpuscular HGB Conc 34.7 g/dL (31.5-36.5); Mean Corpuscular Volume 86 fL (80-100); Mean Platelet Volume 9.2 fL (9.1-12.4); NEUTROPHILS ABSOLUTE AUTO 4.58 K/mm3 (1.96-9.15); NEUTROPHILS PERCENT AUTO 52 % (41-73); Platelet Count 203 K/mm3 (150-400); RDW Coefficient Variation 13.7 % (11.7-14.2); RDW Standard Deviation 43.1 fL (35.1-46.3); Red Blood Cell Count 5.21 M/mm3 (3.80-5.20); White Blood Cell Count 8.88 K/mm3 (4.00-11.30)
[2022-03-22 12:48] LABS: Alanine Aminotransfer (ALT/SGP 73 U/L (12-78); Albumin, Blood 3.7 g/dL (3.4-5.0); Albumin/Globulin Ratio 0.9 (0.8-1.8); Alk Phos 85 U/L (50-136); Anion Gap 8 mmol/L (6-16); Aspartate Aminotrans (AST/SGOT 63 U/L (12-37); Bilirubin, Total 0.8 mg/dL (0.1-1.0); Blood Urea Nitrogen 13 mg/dL (8-24); Bun/Creatinine Ratio 19.3 (12.0-20.0); CO2, Blood 27 mmol/L (21-32); Calcium, Blood 9.6 mg/dL (8.5-10.1); Chloride, Blood 106 mmol/L (98-108); Creatinine, Blood 0.67 mg/dL (0.40-1.00); Globulin, Blood 4.1 g/dL (2.2-4.0); Glomerular Filtration Rate >60 (60-); Glucose, Blood 119 mg/dL (70-99); Potassium, Blood 3.4 mmol/L (3.5-5.5); Sodium, Blood 141 mmol/L (136-145); Total Protein, Blood 7.8 g/dL (6.4-8.2)
[2022-03-22 13:26] LABS: Magnesium, Blood 1.8 mg/dL (1.6-2.4); Valproic Acid 112.5 ug/mL (50.0-100.0)
[2022-03-22] MEDS ORDERED: CYCL10 PO (14:52)
== END 2022-03-22 15:18 | disposition home or self-care (01) ==
LOC: ER 11:18
PROVIDERS: Physician Assistant
DX: G40.909 Epilepsy, unspecified, not intractable, without status epilepticus (principal); M79.604 Pain in right leg; J44.9 Chronic obstructive pulmonary disease, unspecified; I10 Essential (primary) hypertension; F17.210 Nicotine dependence, cigarettes, uncomplicated; Z88.5 Allergy status to narcotic agent; Z88.0 Allergy status to penicillin; Z88.2 Allergy status to sulfonamides; Z88.8 Allergy status to other drugs, medicaments and biological substances; Z88.6 Allergy status to analgesic agent; Z88.1 Allergy status to other antibiotic agents; Z91.038 Other insect allergy status; Z79.899 Other long term (current) drug therapy
CPT/HCPCS: 36415; 80053; 80164; 83690; 83735; 85025; 93971; J1885

== ENCOUNTER 2022-03-24 10:56 | Inpatient (IN) | payer OTHER ==
[~2022-03-24] VITALS: Ht 154.9 cm; Wt 83.9 kg
[~2022-03-24 10:56] MED LIST changes: -Ventolin/Prove6.7 GM; +Ventolin/Prove6.7 GM INH; -Vistaril50 MG; +Vistaril50 MG PO
[2022-03-24 11:33] LABS: BASOPHILS ABSOLUTE AUTO 0.03 K/mm3 (0.00-0.23); BASOPHILS PERCENT AUTO 0 % (0-2); EOSINOPHILS ABSOLUTE AUTO 0.07 K/mm3 (0.00-0.68); EOSINOPHILS PERCENT AUTO 1 % (0-6); Hematocrit 45.8 % (33.0-51.0); Hemoglobin 15.6 g/dL (11.5-16.0); IMMATURE GRAN ABSOLUTE AUTO 0.04 K/mm3 (0.00-0.10); IMMATURE GRAN PERCENT AUTO 0 % (0-1); LYMPHOCYTES ABSOLUTE AUTO 3.54 K/mm3 (0.84-5.20); LYMPHOCYTES PERCENT AUTO 35 % (21-46); MONOCYTES ABSOLUTE AUTO 1.21 K/mm3 (0.16-1.47); MONOCYTES PERCENT AUTO 12 % (4-13); Mean Corpuscular HGB 29.8 pg (26.0-34.0); Mean Corpuscular HGB Conc 34.1 g/dL (31.5-36.5); Mean Corpuscular Volume 88 fL (80-100); Mean Platelet Volume 9.2 fL (9.1-12.4); NEUTROPHILS ABSOLUTE AUTO 5.26 K/mm3 (1.96-9.15); NEUTROPHILS PERCENT AUTO 52 % (41-73); Platelet Count 209 K/mm3 (150-400); RDW Standard Deviation 45.3 fL (35.1-46.3); Red Blood Cell Count 5.23 M/mm3 (3.80-5.20); White Blood Cell Count 10.15 K/mm3 (4.00-11.30)
[2022-03-24 12:02] LABS: Alanine Aminotransfer (ALT/SGP 99 U/L (12-78); Albumin, Blood 3.8 g/dL (3.4-5.0); Albumin/Globulin Ratio 0.9 (0.8-1.8); Alk Phos 107 U/L (50-136); Anion Gap 8 mmol/L (6-16); Aspartate Aminotrans (AST/SGOT 92 U/L (12-37); Bilirubin, Total 0.9 mg/dL (0.1-1.0); Blood Urea Nitrogen 20 mg/dL (8-24); Bun/Creatinine Ratio 25.3 (12.0-20.0); CO2, Blood 27 mmol/L (21-32); Calcium, Blood 10.4 mg/dL (8.5-10.1); Chloride, Blood 105 mmol/L (98-108); Creatinine, Blood 0.79 mg/dL (0.40-1.00); Ethanol (Alcohol), Blood, Med <3 mg/dL; Globulin, Blood 4.3 g/dL (2.2-4.0); Glomerular Filtration Rate 89 (60-); Glucose, Blood 108 mg/dL (70-99); Potassium, Blood 3.5 mmol/L (3.5-5.5); Sodium, Blood 140 mmol/L (136-145); Total Protein, Blood 8.1 g/dL (6.4-8.2)
[2022-03-24 13:13] LABS: Prothrombin Time Results 10.5 Sec (9.7-11.5)
--- NOTE | 2022-03-24 17:43 | NUR ---
SHIFT SUMMARY PATIENT IS ALERT AND ORIENTED X2. PATIENT WAS ADMITTED AROUND 1700. PATIENT IS NPO PER DR ORDER. PATIENT IS ADMITTED FOR INCREASING WEAKNESS. PATIENT HAS SEIZURE HISTORY AND HAS PRECAUTIONS IN PLACE. PATIENT HAS HAD NO ACUTE EVENTS THIS SHIFT. VITAL SIGNS REVIEWED. WILL MONITOR UNTIL SHIFT CHANGE.
--- NOTE | 2022-03-24 23:35 | NUR ---
NURSE NOTE: IQRA HARDY NOTIFIED PATIENT COMPLAINING 5/10 STABBING PAIN DOWN RIGHT SIDE OF BODY FROM THE TOP OF HER HEAD DOWN THROUGH HER LEG. PATIENT HAS SEVERAL ALLERGIES TO MEDICATIONS LISTED. GAVE TELEPHONE ORDER TO APPLY HEAT VIA HEATING PAD TO RIGHT SIDE, DOES NOT WANT TO ADMINISTER ANY PRN PAIN MEDICATION AT THIS TIME DUE TO PATIENTS NPO STATUS AWAITING SPEECH THERAPY EVALUATION AND ALLERGIES. WILL PLACE ORDER FOR HEATING PAD AND CONTINUE TO MONITOR, WILL NOTIFY IF PAIN CONTINUES.
[2022-03-25 04:52] LABS: CHOL/HDL RATIO 6.6; Cholesterol 257 mg/dL (50-200); HDL Cholesterol 39 mg/dL (>39); LDL/HDL RATIO 4.5; Low Density Lipoprotein Chol 177 mg/dL (0-110); Triglycerides 206 mg/dL (30-160); Very Low Density Lipoprot Chol 41 mg/dL (6-32)
--- NOTE | 2022-03-25 05:37 | NUR ---
SHIFT SUMMARY: PT A/OX 3 DISORIENTED TO TIME, AND UNDERSTANDING SITUATION. RIGHT SIDED WEAKNESS CONTINUED, RIGHT FACIAL DROOP AND SLURRED SPEECH. NO CHANGES NEUROLOGICALLY THROUGHOUT THE SHIFT. PATIENT CONTINUES TO BE ANXIOUS NOT FULLY COMPREHENDING THE IMPORTANCE OF WHY SHE IS UNABLE TO MOBILIZE INDEPENDENTLY. CONTINUED EDUCATION ON SAFETY, PLAN OF CARE AND CURRENT SITUATION/LIMITATIONS. PATIENT ABLE TO STAND AND PIVOT WITH 2 PERSON ASSIST FROM BED TO RECLINER. VERY RESTLESS AND COMPLAINING OF PAIN THROUGHOUT RIGHT SIDE- MEDICATED FOR PAIN REVIEW EMAR. MD DOES NOT WANT TO MEDICATE FOR ANXIETY AT THIS TIME DUE TO ASSESSING NEURO STATUS.
--- NOTE | 2022-03-25 16:48 | NUR ---
Supportive visit this afternoon. Pt sitting in chair upon arrival. Pt points to documents regarding SNF and appears to agree with plan. Pt appears to have some cognitive delay and requires simple and slow discussion. Pt states she lives in a senior living with her sister and other people. She reports having her own room. Continued therapeutic listening, reviewed plan of care and answered questions. Spoke with Primary RN Mouna and discussed case. Palliative Care will remain available.
--- NOTE | 2022-03-25 19:32 | NUR ---
SHIFT SUMMARY PT AX X3-4, COOPERATIVE WITH CARE THOUGH ANXIOUS, DR LEWIS NOTIFIED, HOME MEDICATIONS RESUMED. DIASTOLIC BP ELEVATED THIS SHIFT. SEE VS. PT UP TO CHAIR AND INTO WHEELCHAIR TO REDUCE ANXIETY. IV PATENT AND SALINE LOCKED. PT MEDICATED FOR PAIN PER EMAR. MULTIPLE INCONTINENT BMS THIS SHIFT. PATIENT WORKED WITH PHYSICAL, OCCPATIONAL AND SPEECH THERAPY, SEE NOTES. SINUS TACH THIS SHIFT ON TELE, 109-118. BED IN LOW POSITION, CALL LIGHT WITHIN REACH.
--- NOTE | 2022-03-26 04:00 | NUR ---
NURSE NOTE/SHIFT SUMMARY: A/OX3 PATIENT CONTINUES TO HAVE RIGHT SIDE WEAKNESS, RIGHT FACIAL DROOP, SLURRED SPEECH AND DECREASED SENSATION. PATIENT COMPLAINT OF INCREASED ANXIETY, BECOMES FIXATED ON WANTING TO GET UP BY HERSELF AND LEAVING HOSPITAL TO GO HOME. CONTINUE TO REORIENT AND EDUCATE PATIENT ON PHYSICAL LIMITATIONS, SAFETY AND PLAN OF CARE. PATIENT IS ABLE TO VERBALIZE THAT SHE IS UNABLE TO WALK INDEPENDENTLY BUT CONTINUES TO ASK TO GET UP TO WALK. CONTINUED 2 PERSON ASSIST TO STAND AND PIVOT FROM BED TO RECLINER AND WHEELCHAIR. STAFF TOOK PATIENT FOR A RIDE IN WHEELCHAIR IN [place] IN ATTEMPT TO DECREASE ANXIETY, WITH LITTLE RELIEF. PATIENT CONTINUES TO REPORT CONTINUED SHARP PAIN ON RIGHT SIDE -PRN PAIN MEDICATIONS ADMINISTERED REVIEW EMAR. BED ALARM REMAINS ACTIVATED, CHAIR ALARM ON WHEN PATIENT IS OUT OF BED, CALL MARAVILLA IN REACH.
--- NOTE | 2022-03-26 06:05 | NUR ---
HUEY HARDY NOTIFIED PTS HR TACHYCARDIC UP TO 120'S-130'S AT THIS TIME PATIENT HAVING INCREASED ANXIETY AND TEARFUL. PTS BP STABLE HR NOW SUSTAINING 110'S. MD INFORMED THROUGHOUT THE NIGHT HR GOES UP TO THE 110'S WHEN ANXIOUS AND GOES DOWN TO LOW 100'S BPM. NOTED CONTINUED ANXIETY HAVING DIFFICULTLY MANAGING THROUGHOUT THE NIGHT. HUEY HARDY GAVE TELEPHONE ORDER FOR ONE TIME DOSE O.5 MG ATIVAN PO.
--- NOTE | 2022-03-26 18:11 | NUR ---
SHIFT SUMMARY: NO ACUTE EVENTS. C/O PAIN IN RLE; MEDICATED WITH FENTANYL WITH SOME RELIEF, REQUESTS PRECISELY EVERY 4 HOURS. NO EVENTS ON TELEMETRY, SR-ST 95-115. DID NOT REQUIRE ADDITIONAL DOSES OF ATARAX FOR ANXIETY; PLACED PRN NICOTINE PATCH THIS MORNING AND HER MOOD WAS LESS CHAOTIC. INCONT OF B&B, ATTENDS IN PLACE. APPETITE IS OK, IS LEARNING TO EAT FOOD WITH HER LEFT HAND. TRANSFERRING TO CHAIR WITH TWO PERSON AND GAIT BELT; R SIDE IS FLACCID. SPEECH IS SLURRED, R FACIAL DROOP. DR. SCHMID HAS SEEN PATIENT.
--- NOTE | 2022-03-27 04:10 | NUR ---
NURSE NOTE/SHIFT SUMMARY: PT A/O X3, CONTINUES TO EXPERIENCES INCREASED ANXIETY THROUGHOUT THE NIGHT. PATIENT HAS PERIODS OF INCREASED RESTLESSNESS, MOMENTS OF TEARFULNESS AND EXPRESSING HOPELESSNESS. ANXIETY MEDICATIONS AND PAIN MEDICATIONS ADMINISTERED WITH LITTLE RELIEF- REVIEW EMAR. PATIENT FREQUENTLY ASKING STAFF IF SHE CAN LEAVE AND GO HOME, AND FIXATES ON WANTING TO GET UP TO WALK INDEPENDENTLY. CONTINUED EDUCATION AND REORIENTATION TO PATIENTS LIMITATIONS DUE TO RIGHT SIDE WEAKNESS POST CVA. PATIENT IS ABLE TO TEACH BACK. VERY RESTLESS AT TIMES ASKING TO GO FROM BED TO RECLINER TO WHEELCHAIR, PT VERBALIZES INABILITY TO TOLERATE EACH LOCATION DIRECTLY AFTER MOVING PATIENT PER REQUEST. PATENT REPORTS SHE WANTS TO BE MOVED FREQUENTLY DUE TO FEELING ANXIOUS, RESTLESS AND WANTING TO "GET UP". -APPROXIMATELY 0400 THIS MORNING PATIENT ASKED THIS NURSE "ARE YOU GOING TO HURT ME? I WANT YOU TO HURT ME". CLARIFICATION ASKING PATIENT WHAT SHE MEANS BY SAYING SHE WANTS THIS NURSE TO "HURT HER". PATIENT RESPONDS "I WANT YOU TO STRANGLE ME, I CAN'T TOLERATE BEING IN HERE. I'M GOING TO GO CRAZY". THIS NURSE ASKED PATIENT IF SHE IS HAVING THOUGHTS OF HARMING YOURSELF, PATIENT RESPONDS "YES", THIS NURSE ASKS ARE YOU WANTING TO ACT ON THOSE FEELINGS? PATIENT RESPONDS "NO". CHARGE NURSE INFORMED OF PATIENTS COMMENTS. PATIENT CONTINUES TO HAVE FLUCTUATING EMOTIONS AND COMMENTS CHANGING FROM REQUESTING HARM MENTIONED ABOVE TO SAYING "I WANT TO GET BETTER AND I DON'T WANT TO GET HURT". MD NOTIFIED- WILL CONTINUE TO MONITOR.
--- NOTE | 2022-03-27 17:42 | NUR ---
SHIFT SUMMARY: NO ACUTE EVENTS. NO EVENTS ON TELEMETRY, SINUS TACH 100-110. C/O PAIN AND STINGING IN RLE; MEDICATED PER EMAR WITH ADEQUATE RELIEF. R FACIAL DROOP HAS IMPROVED SLIGHTLY HAS RUE AND RLE STRENGTH; ANTOINETTE CAN BEND HER R ELBOW AND R KNEE SLIGHTLY, HAND GRASP HAS ALSO IMPROVED. INTERMITTENT ANXIETY, WORSE AT NIGHT; MEDICATED WITH ATARAX. HAD VISITORS TODAY, GOT INTO W/C FOR A TOUR AROUND THE UNIT. WORKED WITH PHYSICAL THERAPY THIS AFTERNOON.
--- NOTE | 2022-03-28 04:23 | NUR ---
PT A & OX4. V/S WNL. RIGHT-SIDED WEAKNESS WITH DIMINISHED SENSATION TO UPPER AND LOWER EXTREMITIES. PIVOT-TRANSFER, 2-ASSIST. IV TO R) WRIST FLUSHED W/O DIFFICULTY. SOFT BITE-SIZED DIET. PILLS WHOLE IN PUDDING. ON TELE: SINUS RYTHM; HR 95 BPM. INCONTINENT OF URINE AND BOWELS. NO BM THIS SHIFT. 3 INCONTINENCE OF URINE THIS SHIFT. PRN PO BAUTISTA GIVEN TWICE ORDERED FOR PAIN TO R) LOWER/UPPER EXTREMITY. PRN ATARAX ADMINISTERED FOR ANXIETY AND PRN BENADRYL PO GIVEN FOR ITCHINESS PER EMAR. WILL CONTINUE TO MONITOR.
--- NOTE | 2022-03-28 17:58 | NUR ---
SHIFT SUMMARY: A&Ox4. VSS. TELE SINUS 99bpm. C/O RT LEG AND LOW BACK PAIN MOSTLY RELIEVED WITH REPOSITIONING TO RECLINER. COMPLETE BEDBATH GIVEN TODAY D/T URINARY INCONTINENCE, THOUGH SHE STATES SHE FEELS IT COMING BUT IS AFRAID SHE'LL FALL WHILE TRANSFERRING OR SITTING ON COMMODE SO SHE DOESN'T CALL AND REQUESTS BED CHANGE AFTER THE FACT. PT ENCOURAGED TO CALL WHEN SHE FEELS SHE NEEDS TO GO TO HELP BLADDER TRAIN. 2-PERSON ASSIST WITH TRANSFERS AND AMBULATION. NICOTINE PATCH CHANGED TODAY: SMOKING CESSATION INFORMATION PROVIDED. REPOSITIONING HERSELF IN BED, STANDING AND PIVOTING BED TO RECLINER FOR ALL MEALS. ANTICIPATE PLACEMENT IN SNF WHEN AVAILABLE. REPORT TO [facility] SHIFT NURSE.
--- NOTE | 2022-03-29 04:31 | NUR ---
PT A & OX4. VS WNL. SOFT, BITE-SIZED DIET. PILLS, WHOLE IN PUDDING. IV TO R) WRIST. R) SIDE WEAKNESS. R) SIDE FACIAL DROOP. INCONTINENT OF URINE AND BOWELS. PIVOT-TRANSFER, 2 ASSIST, WALKER & GB. NO BM THIS SHIFT. PT REPORTED PAIN; PRN BAUTISTA GIVEN FOR PAIN PER EMAR. TELE: SINUS RYTHM. WILL CONTINUE TO MONITOR.
--- NOTE | 2022-03-29 17:18 | NUR ---
DAYSHIFT SUMMARY Pt worked with therapy today, OOB in chair for all meals. Right facial droop, RUE/RLE neglect. Pupils reactive, brisk. Reports pain/numbness/decreased sensation on right side of body. Pt left medical floor today for 20 minutes, went downstairs via W/C with significant other. This evening pt appeared to be painful, facial grimincing, tearful. Reported "new weirdness in her body". She reported severe pain in body, then stated it was sharp pain only on right side of body, no pain/discomfort on left side. Assessed pt using NIH scale, no new deficts, changes in LOC, or speech noted compared to start of . Pt able to stand pivot to recliner. Pt very emotional, she looks sad, tearful, crying on the telephone. stated pt could have 1 time dose of Oxycodone, but order DC'd this am. MD will come talk to patient. Vitals stable, WNL.
--- NOTE | 2022-03-30 06:08 | NUR ---
PT A & OX4. V/S WNL. SOFT, BITE-SIZED DIET. IV TO R) WRIST. PIVOT-TRANSFER, 2-ASSIST WITH GB. INCONTINENT OF URINE AND BOWEL. PT C/O PAIN. PRN FENTANYL IV GIVEN FOR PAIN PER EMAR. PT FEELING ANXIOUS. PRN PO ATARAX GIVEN FOR ANXIETY. PILLS WHOLE IN PUDDING. R) SIDE WEAKNESS. WILL CONTINUE TO MONITOR.
--- NOTE | 2022-03-30 14:56 | NUR ---
Spiritual Care Attempted. Pt. is soundly sleeping. Spouse is present. Agree to return later in shift.
--- NOTE | 2022-03-30 16:19 | NUR ---
DAYSHIFT SUMMARY Pt worked with PT/OT today, continues to be hands on assist with transfers. OOB for all meals. 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 No difficulties with swallowing or taking pills. Pt emotional and tearful today, consulted with spiritual care to for additional support. Vitals stable, awaiting placement.
--- NOTE | 2022-03-30 18:08 | NUR ---
Spiritual Care Visit. Requested by Nurse Prajapati. After third visit, I was able to connect with the Pt. Pt. was sitting up in her recliner and welcomed my visit. Pt. is immediately cathartic and verbalizes her desire to be able to move her arm and her hand and to go home. With theraputic listening provide a calming presence. Pt. displays evidence of frustration and confusion. Give pastoral enacouragement about the progress of being able to sit up. Ask pt. if she was a woman of radhika and if she would like to have prayer. Pt. reaches (left) hand out. Prayed with Pt. Pt. desired to go back to her bed. Pt. verbalized that it would be good for me to return tomorrow. Connected with attending nurse so he could help her.
--- NOTE | 2022-03-30 18:24 | NUR ---
This evening pt N/V, dry heaving in room television repairer called a reported pt sustain HR 150s, RN at bedside with pt. Pt had 200mL bright green emesis. IV Phenergen & TUMs given. Pt has had poor intake this shift, unable to eat meals. Drinking water, NS infusing. Pt concerned with how frequent she is having N/V, states she has had chemo for the last 2 years, and these s/sx are new. Pt struggling with N/V today.
--- NOTE | 2022-03-31 17:00 | NUR ---
Spiritual Care Visit. Pt. was awake in bed, and welcomes my visit. Pt. was unsettled because she needed a diaper change. Listened empatheticially, but verblaized with Pt. that I will have to let a nurse know. Pt. displayed evidence of understanding and agreement. Pt. verbalized that she was feeleing better, but could stiull not move her fingers. With a calming influence and pastoral I directed the conversation to how far she has come in the past day. Pt. displayed evidence of agreement and verbalized gratitude for her spiritual care visit. I let the nursing staff know of pts. need to have diaper changed.
--- NOTE | 2022-03-31 18:39 | NUR ---
END OF SHIFT SUMMARY: PATIENT ALERT AND ORIENTED (PERSON, PLACE, MONTH, REASON FOR ADMISSION) THROUGHOUT SHIFT. NO CHANGES TO NEURO STATUS NOTED. PATIENT HAS SOME LIFTING ABILITY IN RIGHT ARM AND RIGHT LEG. PATIENT FOLLOWS DIRECTIONS. PATIENT UP WITH TWO PERSON ASSIST, GAIT BELT, STAND PIVOT TO CHAIR. PATIENT RESPONDS WELL TO VERBAL CUES AND REASSURANCE. MEDICATED PATIENT ONCE FOR ANXIETY. PATIENT LABILE AT TIMES IN REGARDS TO INABILITY TO FREELY MOVE RIGHT ARM AND LEG. PATIENT EXPRESSES ANXIETY ABOUT DISCHARGE. PATIENT UP TO CHAIR FOR MEALS. NO SWALLOWING DIFFICULTY NOTED.
--- NOTE | 2022-04-01 04:18 | NUR ---
SUMMARY PT HARDLY SLEPT T/O THE NIGHT. EMOTIONAL PERIODS AT TIME, PT STATED THAT SHE WANTED TO GET OOB OR GO HOME WITHOUT ANY REASONING. PT STATED MULTIPLE TIMES THAT SHE WAS PARANOID AND CLAUSTROPHOBIC. MEDICATED PER EMAR FOR AMXIETY. NO ACUTE NEURO CHANGES T/O THE NIGHT, R/SIDED DEFICITS WITH GROSS MOVEMENT AND INCONTINENCE. PT IS CURRENTLY RESTING QUIETLY, BED ALARM ON, CALL LIGHT IN REACH.
--- NOTE | 2022-04-01 10:20 | NUR ---
ROUGHER MACHINE OPERATOR REPORTS TO NURSE THAT PATIENT STATED TO HER "I WNAT TO , I WANT TO KILL MYSELF" ENTERED ROOM AND PATIENTS AT BEDSIDE, SPOKE WITH PATIENT AND PATIENT STATES "I WANT TO BECAUSE I AM HAVING SO MUCH PAIN ON MY RIGHT SIDE" PT DENIES ANY PLAN OF HARMING SELF. PT MEDICATED WITH FLEXERIL. NOTIFIED DR LEWIS AND PAPER AND PULP MILL WORKERYAIR FIGUEROA OF PATIENTS STATEMENT. SUICIDE ASSESSMENT INITIATED
--- NOTE | 2022-04-01 10:26 | NUR ---
SPOKE WITH PATIENT , PT STATES " IM SORRY I TOLD YOU I WANT TO KILL MYSELF, I WAS JUST ANGRY AND FRUSTRATED' PT TELLS ME SHE DOES NOT WANT TO HARM HERSELF. PT STATES FLEXERIL THAT I GAVE IS HELPING TO DECREASE HER PAIN
--- NOTE | 2022-04-01 16:48 | NUR ---
LAST BOWEL MOVEMENT WAS ON 03/26/22, GAVE 240LM OF PRUNE JUICE TO ENCOURAGE A BM. CONTACTED DOCTOR AND GOT ORDERS FOR BOWEL CARE.
--- NOTE | 2022-04-01 17:16 | NUR ---
SHIFT SUMMARY: PT A&OX4 COULDN'T GIVE EXACT DAY, BUT KNEW MONTH. R SIDED WEAKNESS FROM STROKE. LIMITED ABILITY TO LIFT RIGHT ARM/LEG. PT UP IN CHAIR FOR MEALS, 2 PERSON STAND AND PIVOT WITH GAIT BELT, JUST REASSURE/REMIND TO SHIFT WEIGHT TO LEFT LEG. PT CAN BE ANXIOUS AND IMPULSIVE, BED/CHAIR ALARM ON. PT INCONTINENT AND WEARING ATTENDS. LAST BOWEL MOVEMENT WAS 03/26/22, TRIED SOME PRUNE JUICE TO START WITH, BUT DOCTOR WAS NOTIFIED AND ORDERS FOR PRN BOWEL CARE WERE RECEIVED. PT HAD VOCALIZED IDEAS OF SELF HARM, BUT LATER RECANTED STATING THEY WERE JUST FRUSTRATED WITH THEIR SITUATION. USES CALL LIGHT APPROPRIATELY. CALL LIGHT WITHIN REACH PLAN IS CURRENTLY TO FIND PLACEMENT IN A SNF TO CONTINUE RECOVERY.
--- NOTE | 2022-04-02 05:56 | NUR ---
PT ALERT TO SELF, PLACE, SITUATION AND MONTH/YEAR. PT DENIED ANY SUICIDAL IDEATION STATES EARLIER SHE WAS FRUSTRATED DUE TO BEING IN PAIN. PT INITIALLY VERY ANXIOUS REPEATING ON MULTIPLE OCCASSIONS THAT SHE WANTS TO GO HOME, IS CLASTROPHOBIC AND HAS NIGHTMARES AT NIGHT. ALSO STATING THAT HER BRAIN IS TELLING HER "TO GET UP" HOWEVER PT MADE NO ATTEMPTS. PT REQUESTING MEDICATION TO SLEEP HOWEVER ABLE TO FALL ASLEEP ON HER OWN. PT REMAINS INCONTINENT OF URINE AND ABLE TO ASSIST WITH TURNS. NO ACUTE CHANGES NOTED OVERNIGHT. PT RECEIVED FLEXERIL PRN X2.
--- NOTE | 2022-04-02 17:36 | NUR ---
AM ASSESSMENT I AGREE WITH AND WAS PRESENT DURING THE STUDENT NURSE RAY'S AM ASSESSMENT. AND HAVE REVIEWED AND AGREE WITH HER DOCUMENTATION ON THIS PATIENT
--- NOTE | 2022-04-02 17:55 | NUR ---
SHIFT SUMMARY PT IS A/O X 4. CALM AND COOPERATIVE WITH CARE. IMPULSIVE AT TIMES. PT IS ANXIOUS AT TIMES AND STATES SHE WANTS TO GO HOME. S.O. IN TO VISIT TODAY. PT IS INCONT OF URINE. NO BM THIS SHIFT. PT COMPLAINED OF BACK SPASMS THIS AM. GAVE ONE TIME DOSE OF FLEXERIL. NO ACUTE EVENTS T/O DAY. VSS. AWAITING PLACEMENT.
--- NOTE | 2022-04-03 03:43 | NUR ---
PT A/OX4, VERY ANXIOUS AT START OF SHIFT AND WANTING HER NIGTH MEDICATIONS RIGHT AWAY. PT WANTING TO GO HOME AND STATING SHE WANTS TO GET UP TO LEAVE. PT MADE NO ATTEMPTS TO GET UP HOWEVER. PT SPEAKING ON PHONE WITH BOYFRIEND AND CRYING BECAUSE SHE NO LONGER WANTS TO BE HERE. EMOTIONAL SUPPORT PROVIDED AND PRN ATARAX GIVEN. PT VERBALIZING SHE IS SCARED BECAUSE SHE HAS NIGHTMARES AND IS SCARED OF GOING TO A NEW PLACE. PT ALSO C/O BACK PAIN AND HEATING PAD APPLIED AT REQUEST. PT ABLE TO SLEEP AROUND MIDNIGHT. PT REMAINS INCONTINENT. NO CHANGE IN PATIENT CONDITION THIS SHIFT.
--- NOTE | 2022-04-03 18:01 | NUR ---
PT A/O X 4 2 PERSON ASSIST WITH TX. PT CONTINUES TO HAVE R SIDE FLACCIDITY AND DIFFICULTY WITH PIVOTING. GB NEEDED WITH TX. PT REPORTED L SIDE HIP PAIN THIS AM WHICH SHE DESCRIBED THROBBING ACHE. MENTHOL AND LIDOCAINE PATCH APPLIED AND PT REPORTED HER PAIN RESOLVED WITH THESE INTERVENTIONS. PT DID C/O OF MILD HODGSON IN THE AFTERNOON. PT GIVEN TIME TO REST IN BED AND HODGSON RESOLVED. PT EATING DINNER SITTING UP IN CHAIR AT THIS TIME WATCHING TV. NO S/S OF DISTRESS. WILL REPORT TO CORY MAZARIEGOS.
--- NOTE | 2022-04-04 07:20 | NUR ---
SHIFT SUMMARY: PATIENT WAS GIVEN A DULCOLAX SUPP FOR NO BM SINCE 03/26/22. RESULT WAS A MEDIUM HARD FORMED BROWN BM. REPORTED SPASMS IN R FOOT, FLEXERIL WAS GIVEN WITH GOOD EFFECT. RLE HAS SOME GROSS MOTOR MOVEMENT. RUE IS FLACID, RIGHT FACIAL DROOP PRESENT.
--- NOTE | 2022-04-04 17:12 | NUR ---
SHIFT SUMMARY: PATIENT ALERT AND ORIENTED X4. SHE CONTINUES TO HAVE RIGHT SIDED ARM FLACCIDITY. SHE WAS ABLE TO MOVE RIGHT LEG MORE THROUGHOUT THE DAY. SHE CONTINUES TO HAVE PAIN IN RIGHT EXTREMITIES AND IN BACK. PLACED A LIDOCAINE PATCH ON LOWER BACK AND A ICY HOT PATCH ON RIGHT KNEE FOR PAIN RELIEF. PATIENT UP IN CHAIR FOR ALL MEALS. SHE IS A 2 PERSON PIVOT WITH A GAIT BELT. BED IN LOWEST POSITION. CALL LIGHT IN REACH. WILL CONTINUE TO MONITOR.
--- NOTE | 2022-04-04 18:08 | NUR ---
REVIEWED ASSESSMENT DOCUMENTATION AND NOTES ENTERED BY CARL, STUDENT NURSE AND AGREE WITH HER FINDING ON THIS PATIENT.
--- NOTE | 2022-04-05 06:22 | NUR ---
SHIFT SUMMARY AOX4. VSS. SLOW SLURRED SPEECH, ABLE TO ANSWER QUESTIONS APPROPRIATE & FOLLOW DIRECTION. HAS R FACIAL DROOP, R SIDED WEAKNESS, MINIMAL GROSS MOVEMENT NOTICED c BOTH R EXTREMITIES TONIGHT. VERY TEARFUL, UPSET, ANXIOUS ABOUT HEALTH CONDITION LAST NIGHT, PROVIDED ENCOURAGEMENT, LISTENING & MEDICATED c HS MEDS, HAS BEEN CALM & PLEASENT SINCE. DENIES N/V OR DYSPNEA. REPORTS 8/10 PAIN IN RLE, MEDICATED c HS SCHEDULED GABAPENTIN & APPLIED ASPERCREAM PER DR DOUGLAS ORDERS & PT DENIES ANY PAIN THIS AM. NO BM, INCONT OF URINE T/O NIGHT, ATTENDS CHANGED PRN. CALL LIGHT IN REACH & PT ABLE TO MAKE NEEDS KNOWN. WILL MONITOR.
--- NOTE | 2022-04-05 08:00 | NUR ---
PT PLEASNT COOP SOMETIMES TEARFUL. A/O X2-3. SOME SLURRING/GARBLING OF SPEACH. RT SIDE WEAKNESS AND MODERATE FACIAL DROOP NOTED. IS GROSS MOVEMENT ON RT SIDE. LEG AND ARMS. SLOW AND GROSS. H/R REG, NO MURMER NOTED. NO TELE. LUNGS CLEAR UPPER, COARSE LOWER. ON R.A. RESP EASY UNLABORED. BT X4 LAST BM THIS AM, SMALL. VOIDS INCONT., ATTENDS CLEAN/DRY AT THIS TIME. BED IN LOW POSITION,C ALL LITE IN REACH, CALLS APPROP
--- NOTE | 2022-04-05 18:19 | NUR ---
PT MOSTLY PLEASANT TODAY. LITTLE SHORT UPSET INCIDENCES. RESOLVED EASILY TODAY. STATES FRUSTRATED IS IN THIS SHAPE. EXPLAINED JUST TO DO THE BEST SHE CAN EVERY DAY. FAMILY IN TO VISIT TODAY. TOOK OUT IN WHEELCHAIR FOR SHORT OUTING. PT SEEMS IN BETTER SPIRITS. CONTINUES TO HAVE GROSS MOVEMENT IN LEG AND ARM ON RT SIDE. VSS. NO OTHER CONCERNS NOTED. BED IN LOW POSITION, CALL LITE IN REACH, CALLSAPPROP. BED ALARM ON FOR SAFETY
--- NOTE | 2022-04-06 05:08 | NUR ---
SHIFT SUMMARY NO ACUTE CHANGES THIS SHIFT. AOX3. SLOW TO RESPOND, FORGETFUL @TIMES. VSS. REPORTED PAIN IN RLE @HS, HOWEVER HASNT REPORTED ANY FURTHER DISCOMFORT SINCE TAKING SCHEDULED HS MEDS. REPORTED LLQ ABD DISCOMFORT & PER DAY SHIFT REPORT PT HAD SM HARD BM, GAVE MOM, PT STILL REPORTING ABD DISCOMFORT SO GAVE MIRALAX, NO BM STILL-WILL MONITOR. DENIES N/V, DYSPNEA. HAS GROSS MOVEMENT RUE/RLE, SHE IS ABLE TO LIFT BOTH UP. CALL LIGHT IN REACH & PT ABLT TO MAKE NEEDS KNOWN. WILL MONITOR.
--- NOTE | 2022-04-06 11:32 | NUR ---
Spiritual Care request Pt. is awake in bed andf welcomes my visit. Pt. displays evidence of encouragement and a pleasant demeanor. Through pastoral care and a calming presence this motorcycle repair shop supervisor encouraged the Pt. as they are making progress. Pt. is unsettled by the wait for a rehab bed. Pt. verbalizes that she is often lonely. Listen empatheticially. Pt. did reach out her hand and requested prayer. Prayed with Pt. Pt. verbalized gratitude for the spiritual care visit. and asked to have the door remain open. This motorcycle repair shop supervisor did as she requested.
--- NOTE | 2022-04-06 17:13 | NUR ---
SHIFT SUMMARY NO ACUTE CHANGES DURING SHIFT. PT A&O, FOLLOWS COMMANDS. PT STILL C/O ABD PAIN, NO BM IN AM. SCHEDULED COLACE AND SENNA GIVEN, WELL PRN DOLCULAX. PT HAD SMALL BM DURING SHIFT. PT UP TO CHAIR FOR MEALS THROUGHOUT SHIFT BY STAFF AND PT/OT. STILL WEAK RIGHT EXTREMITIES, LIMITED MOVEMENT, BUT INCREASED FUNCTION FROM ADMISSION. CALL LIGHT WITHIN REACH, TABLE AT BEDSIDE. PT ABLE TO VOICE CONCERNS. WILL CONTINUE TO MONITOR.
--- NOTE | 2022-04-07 05:23 | NUR ---
SHIFT SUMMARY 51 YR F ADMITTED ON 03/24/22 FOR CVA OF l SIDE. FULL CODE. NO ACUTE CHANGES THIS SHIFT. PT EXPRESSED THAT SHE WAS FEARFUL OF BEING ALONE SO HER DOOR WAS KEPT OPEN AND LIGHT WAS KEPT ON. SHE HAD A LARGE BOWEL MOVEMENT IN THE EVENING AND STATED THAT SHE FELT BETTER AFTER THAT. SHE WAS ABLE TO SLEEP FOR MOST OF THE SHIFT AND DID NOT CRY OUT OR CALL FOR A NURSE. SHE IS ABLE TO USE CALL LIGHT APPROPRIATELY AND HAS IT WITHIN REACH.
[2022-04-07 14:27] LABS: Influenza A, PCR NEGATIVE (NEGATIVE); Influenza B, PCR NEGATIVE (NEGATIVE); Resp Syncytial Virus, PCR NEGATIVE (NEGATIVE); SARS-Cov-2 (COVID-19) PCR, MMC NEGATIVE (NEGATIVE)
[2022-04-07] MEDS ORDERED: AMLO10 PO (14:54)
[2022-04-07] MEDS ORDERED: GABA300 PO (14:55)
[2022-04-07] MEDS ORDERED: ATORVASTATIN CA80 M1 PO (14:55)
[2022-04-07] MEDS ORDERED: CLOP75 PO (14:55)
--- NOTE | 2022-04-07 15:03 | NUR ---
DISCHARGE PAPERWORK SENT WITH PATIENT TO [facility]. REPORT CALLED TO YAIR LOZANO. NO IV TO REMOVE FROM PATIENT. PATIENTS BELONGINGS COLLECTED AND SENT WITH PATIENT. PATIENT LEFT WITH WHEELCHAIR VAN STAFF AT 1500.
== END 2022-04-07 15:02 | DRG 65 ==
LOC: ER 10:56 → MEDS 13:39
PROVIDERS: Nurse Practitioner Acute Care; Student in an Organized Health Care Education/Training Program; ADMIT Internal Medicine
DX: I63.81 Other cerebral infarction due to occlusion or stenosis of small artery (principal); G81.91 Hemiplegia, unspecified affecting right dominant side; R29.810 Facial weakness; R47.81 Slurred speech; R29.709 NIHSS score 9; R20.2 Paresthesia of skin; R47.1 Dysarthria and anarthria; F31.9 Bipolar disorder, unspecified; J44.9 Chronic obstructive pulmonary disease, unspecified; M54.50 Low back pain, unspecified; G40.909 Epilepsy, unspecified, not intractable, without status epilepticus; I10 Essential (primary) hypertension; G43.909 Migraine, unspecified, not intractable, without status migrainosus; E78.5 Hyperlipidemia, unspecified; G89.29 Other chronic pain; F17.210 Nicotine dependence, cigarettes, uncomplicated; Z90.49 Acquired absence of other specified parts of digestive tract; Z86.73 Personal history of transient ischemic attack (TIA), and cerebral infarction without residual deficits; Z88.0 Allergy status to penicillin; Z88.6 Allergy status to analgesic agent; Z88.2 Allergy status to sulfonamides; Z88.8 Allergy status to other drugs, medicaments and biological substances; Z91.030 Bee allergy status; Z79.899 Other long term (current) drug therapy; Z90.710 Acquired absence of both cervix and uterus; Z79.82 Long term (current) use of aspirin; Z79.02 Long term (current) use of antithrombotics/antiplatelets; Z71.6 Tobacco abuse counseling
CPT/HCPCS: 0241U; 36415; 70450; 70496; 70498; 70551; 80053; 80061; 82947; 83036; 85025; 85610; 85730; 92526; 92610; 93005; 93010; 93306; 94640; 94664; 94760; 97110; 97110-CQ; 97112; 97112-CQ; 97116; 97162; 97166; 97530; 97535; 99285-25; A9270; G0480; J1650; J2405; J3010; Q0177; Q9967

== ENCOUNTER 2022-06-14 17:51 | Emergency (ER) | payer OTHER ==
[~2022-06-14] VITALS: Ht 154.9 cm; Wt 69.8 kg
[~2022-06-14 17:51] MED LIST changes: +AMLO10 PO; +ATORVASTATIN CA80 M1 PO; +CLOP75 PO
[2022-06-14] MEDS ORDERED: Cleocin HCl150 MG PO (19:09)
== END 2022-06-14 19:26 | disposition home or self-care (01) ==
LOC: ER 17:51
DX: L03.115 Cellulitis of right lower limb (principal); J44.9 Chronic obstructive pulmonary disease, unspecified; G40.909 Epilepsy, unspecified, not intractable, without status epilepticus; I10 Essential (primary) hypertension; Z86.73 Personal history of transient ischemic attack (TIA), and cerebral infarction without residual deficits; Z79.899 Other long term (current) drug therapy; Z79.02 Long term (current) use of antithrombotics/antiplatelets; Z88.5 Allergy status to narcotic agent; Z88.0 Allergy status to penicillin; Z88.2 Allergy status to sulfonamides; Z88.8 Allergy status to other drugs, medicaments and biological substances; Z88.6 Allergy status to analgesic agent; Z88.1 Allergy status to other antibiotic agents; Z91.038 Other insect allergy status
CPT/HCPCS: 93971; A9270

== ENCOUNTER 2022-06-29 22:54 | Emergency (ER) | payer OTHER ==
[~2022-06-29] VITALS: Ht 154.9 cm; Wt 74.8 kg
[~2022-06-29 22:54] MED LIST changes: +Cleocin HCl150 MG PO
[2022-06-30] MEDS ORDERED: LIDO700A20 TOP (01:47)
[2022-06-30] MEDS ORDERED: IBUP400 PO (01:47)
[2022-06-30] MEDS ORDERED: ACET500 PO (01:47)
== END 2022-06-30 03:34 | disposition home or self-care (01) ==
LOC: ER 22:54
DX: M79.671 Pain in right foot (principal); R60.0 Localized edema; R00.0 Tachycardia, unspecified; J44.9 Chronic obstructive pulmonary disease, unspecified; I10 Essential (primary) hypertension; G40.909 Epilepsy, unspecified, not intractable, without status epilepticus; Z79.899 Other long term (current) drug therapy; Z79.02 Long term (current) use of antithrombotics/antiplatelets; Z88.5 Allergy status to narcotic agent; Z88.0 Allergy status to penicillin; Z88.2 Allergy status to sulfonamides; Z88.6 Allergy status to analgesic agent; Z88.1 Allergy status to other antibiotic agents; Z91.038 Other insect allergy status
CPT/HCPCS: 36415; 73630; 96374; 99284-25; A9270; J1885

== ENCOUNTER → 2022-07-07 | Emergency (ER) | payer OTHER ==
[~2022-07-07] VITALS: Ht 154.9 cm; Wt 74.4 kg
[~2022-07-07] MED LIST changes: +IBUP400 PO; +NITR100CA PO
[2022-07-07 14:15] LABS: Source, Urine Clean Catch
[2022-07-07 14:23] LABS: Appearance, Urine Hazy (Clear); Bilirubin, Urine Neg (Neg); Blood, Urine 4+ (Neg); Color, Urine Yellow (P-Yellow); Glucose Qualitative, Urine Neg (Neg); Ketones, Urine Neg (Neg); Leukocyte Esterase, Urine 3+ (Neg); Nitrite, Urine Neg (Neg); Protein, Urine 2+ (Neg); Urobilinogen, Urine 1+ (Normal); pH, Urine 6.5 (5.0-8.0)
[2022-07-07 16:58] LABS: Bacteria Many /hpf; Hyaline Casts 0-2 /lpf (0-2); Squamous Epithelial Cells Mod /hpf (Few); Transitional Epithelial Cells Few /hpf (0-Rare)
== END ==
LOC: ER 10:36
PROVIDERS: Emergency Medicine
DX: N39.0 Urinary tract infection, site not specified (principal); I10 Essential (primary) hypertension; J44.9 Chronic obstructive pulmonary disease, unspecified; F17.210 Nicotine dependence, cigarettes, uncomplicated; F31.9 Bipolar disorder, unspecified; Z88.5 Allergy status to narcotic agent; Z88.0 Allergy status to penicillin; Z88.2 Allergy status to sulfonamides; Z88.8 Allergy status to other drugs, medicaments and biological substances; Z88.6 Allergy status to analgesic agent; Z88.1 Allergy status to other antibiotic agents; Z91.030 Bee allergy status; Z79.899 Other long term (current) drug therapy
CPT/HCPCS: 81001

== ENCOUNTER 2022-07-10 12:40 | Emergency (ER) | payer OTHER ==
[~2022-07-10] VITALS: Ht 154.9 cm; Wt 72.6 kg
[2022-07-10 13:26] LABS: BASOPHILS ABSOLUTE AUTO 0.04 K/mm3 (0.00-0.23); BASOPHILS PERCENT AUTO 0 % (0-2); EOSINOPHILS ABSOLUTE AUTO 0.25 K/mm3 (0.00-0.68); EOSINOPHILS PERCENT AUTO 3 % (0-6); Hematocrit 41.3 % (33.0-51.0); Hemoglobin 13.8 g/dL (11.5-16.0); IMMATURE GRAN ABSOLUTE AUTO 0.04 K/mm3 (0.00-0.10); IMMATURE GRAN PERCENT AUTO 0 % (0-1); LYMPHOCYTES ABSOLUTE AUTO 3.54 K/mm3 (0.84-5.20); LYMPHOCYTES PERCENT AUTO 39 % (21-46); MONOCYTES ABSOLUTE AUTO 0.75 K/mm3 (0.16-1.47); MONOCYTES PERCENT AUTO 8 % (4-13); Mean Corpuscular HGB 29.1 pg (26.0-34.0); Mean Corpuscular HGB Conc 33.4 g/dL (31.5-36.5); Mean Corpuscular Volume 87 fL (80-100); NEUTROPHILS ABSOLUTE AUTO 4.38 K/mm3 (1.96-9.15); NEUTROPHILS PERCENT AUTO 49 % (41-73); Platelet Count 280 K/mm3 (150-400); RDW Coefficient Variation 12.9 % (11.7-14.2); RDW Standard Deviation 40.8 fL (35.1-46.3); Red Blood Cell Count 4.74 M/mm3 (3.80-5.20)
[2022-07-10 13:39] LABS: Albumin, Blood 3.4 g/dL (3.4-5.0); Albumin/Globulin Ratio 0.8 (0.8-1.8); Bilirubin, Total 0.5 mg/dL (0.1-1.0); Bun/Creatinine Ratio 15.6 (12.0-20.0); Calcium, Blood 9.2 mg/dL (8.5-10.1); Creatinine, Blood 0.58 mg/dL (0.40-1.00); Globulin, Blood 4.5 g/dL (2.2-4.0); Potassium, Blood 3.6 mmol/L (3.5-5.5); Total Protein, Blood 7.9 g/dL (6.4-8.2)
== END 2022-07-10 14:20 | disposition home or self-care (01) ==
LOC: ER 12:40
PROVIDERS: Emergency Medicine
DX: S09.90XA Unspecified injury of head, initial encounter (principal); N39.0 Urinary tract infection, site not specified; J44.9 Chronic obstructive pulmonary disease, unspecified; I10 Essential (primary) hypertension; Z86.73 Personal history of transient ischemic attack (TIA), and cerebral infarction without residual deficits; F17.210 Nicotine dependence, cigarettes, uncomplicated; Z79.899 Other long term (current) drug therapy; Z79.02 Long term (current) use of antithrombotics/antiplatelets; Z88.0 Allergy status to penicillin; Z88.2 Allergy status to sulfonamides; Z88.8 Allergy status to other drugs, medicaments and biological substances; Z88.6 Allergy status to analgesic agent; Z91.038 Other insect allergy status; W19.XXXA Unspecified fall, initial encounter
CPT/HCPCS: 70450; 72125; 80053; 85025

== ENCOUNTER 2022-07-21 22:19 | Emergency (ER) | payer OTHER ==
[~2022-07-21] VITALS: Ht 154.9 cm; Wt 79.4 kg
== END 2022-07-22 03:00 | disposition home or self-care (01) ==
LOC: ER 22:19
DX: S09.90XA Unspecified injury of head, initial encounter (principal); S40.011A Contusion of right shoulder, initial encounter; S60.221A Contusion of right hand, initial encounter; J44.9 Chronic obstructive pulmonary disease, unspecified; I10 Essential (primary) hypertension; K21.9 Gastro-esophageal reflux disease without esophagitis; F17.210 Nicotine dependence, cigarettes, uncomplicated; Z86.73 Personal history of transient ischemic attack (TIA), and cerebral infarction without residual deficits; Z79.899 Other long term (current) drug therapy; Z79.02 Long term (current) use of antithrombotics/antiplatelets; Z88.0 Allergy status to penicillin; Z88.2 Allergy status to sulfonamides; Z88.6 Allergy status to analgesic agent; Z88.1 Allergy status to other antibiotic agents; Z91.038 Other insect allergy status; W18.30XA Fall on same level, unspecified, initial encounter; Y92.099 Unspecified place in other non-institutional residence as the place of occurrence of the external cause
CPT/HCPCS: 70450; 73030; 73130; 99284-25

== ENCOUNTER 2022-07-28 21:55 | Emergency (ER) | payer OTHER ==
[~2022-07-28] VITALS: Ht 154.9 cm; Wt 57.1 kg
[2022-07-28] MEDS ORDERED: HYDHCL25 PO (22:32)
== END 2022-07-28 22:51 | disposition home or self-care (01) ==
LOC: ER 21:55
DX: F41.9 Anxiety disorder, unspecified (principal); J44.9 Chronic obstructive pulmonary disease, unspecified; I10 Essential (primary) hypertension; F31.9 Bipolar disorder, unspecified; F17.210 Nicotine dependence, cigarettes, uncomplicated; Z88.5 Allergy status to narcotic agent; Z88.0 Allergy status to penicillin; Z88.2 Allergy status to sulfonamides; Z88.8 Allergy status to other drugs, medicaments and biological substances; Z88.6 Allergy status to analgesic agent; Z88.1 Allergy status to other antibiotic agents; Z91.030 Bee allergy status; Z79.899 Other long term (current) drug therapy
CPT/HCPCS: 99283; A9270

== ENCOUNTER → 2022-08-16 | Outpatient (CLI) | payer OTHER ==
[~2022-08-16] MED LIST changes: +K-Dur10 MEQ PO
[2022-08-16 15:27] LABS: Valproic Acid 81.2 ug/mL (50.0-100.0)
== END | disposition home or self-care (01) ==
LOC: LAB SHORT 12:05 → LAB 12:05
PROVIDERS: Nurse Practitioner Family
DX: R56.9 Unspecified convulsions (principal)
CPT/HCPCS: 80164

== ENCOUNTER 2022-08-29 14:46 | Emergency (ER) | payer OTHER ==
[~2022-08-29] VITALS: Ht 160 cm; Wt 79.4 kg
[~2022-08-29 14:46] MED LIST changes: -K-Dur10 MEQ PO
[2022-08-29 15:07] LABS: BASOPHILS ABSOLUTE AUTO 0.02 K/mm3 (0.00-0.23); BASOPHILS PERCENT AUTO 0 % (0-2); EOSINOPHILS ABSOLUTE AUTO 0.04 K/mm3 (0.00-0.68); EOSINOPHILS PERCENT AUTO 0 % (0-6); Hematocrit 35.2 % (33.0-51.0); Hemoglobin 12.4 g/dL (11.5-16.0); IMMATURE GRAN ABSOLUTE AUTO 0.03 K/mm3 (0.00-0.10); IMMATURE GRAN PERCENT AUTO 0 % (0-1); LYMPHOCYTES ABSOLUTE AUTO 2.39 K/mm3 (0.84-5.20); LYMPHOCYTES PERCENT AUTO 26 % (21-46); MONOCYTES ABSOLUTE AUTO 0.72 K/mm3 (0.16-1.47); MONOCYTES PERCENT AUTO 8 % (4-13); Mean Corpuscular HGB Conc 35.2 g/dL (31.5-36.5); Mean Corpuscular Volume 82 fL (80-100); Mean Platelet Volume 9.9 fL (9.1-12.4); NEUTROPHILS ABSOLUTE AUTO 6.14 K/mm3 (1.96-9.15); NEUTROPHILS PERCENT AUTO 66 % (41-73); Platelet Count 177 K/mm3 (150-400); RDW Coefficient Variation 13.4 % (11.7-14.2); RDW Standard Deviation 40.5 fL (35.1-46.3); Red Blood Cell Count 4.28 M/mm3 (3.80-5.20); White Blood Cell Count 9.34 K/mm3 (4.00-11.30)
[2022-08-29 15:26] LABS: Alanine Aminotransfer (ALT/SGP 32 U/L (12-78); Albumin, Blood 2.9 g/dL (3.4-5.0); Albumin/Globulin Ratio 0.9 (0.8-1.8); Alk Phos 88 U/L (50-136); Anion Gap 7 mmol/L (6-16); Aspartate Aminotrans (AST/SGOT 28 U/L (12-37); Bilirubin, Total 0.3 mg/dL (0.1-1.0); Blood Urea Nitrogen 4 mg/dL (8-24); Bun/Creatinine Ratio 6.4 (12.0-20.0); CO2, Blood 27 mmol/L (21-32); Chloride, Blood 109 mmol/L (98-108); Creatinine, Blood 0.63 mg/dL (0.40-1.00); Ethanol (Alcohol), Blood, Med <3 mg/dL; Globulin, Blood 3.2 g/dL (2.2-4.0); Glomerular Filtration Rate 105 (60-); Glucose, Blood 281 mg/dL (70-99); Potassium, Blood 2.6 mmol/L (3.5-5.5); Sodium, Blood 143 mmol/L (136-145); Total Protein, Blood 6.1 g/dL (6.4-8.2)
[2022-08-29 15:50] LABS: U Amphetamine Screen Not Detected; U Barbituate Screen Not Detected; U Benzodiazapine Screen Not Detected; U Buprenorphine Screen Not Detected; U Cannabinoids Screen Not Detected; U Cocaine Screen Not Detected; U Methadone Screen Not Detected; U Methamphetamine Screen Not Detected; U Opiates Screen Not Detected; U Oxycodone Screen Not Detected; U Phencyclidine Screen Not Detected; U Propoxyphene Screen Not Detected
[2022-08-29 17:25] LABS: Chloride (POC) 104 mmol/L (98-108); Creatinine (POC) 0.6 mg/dL (0.6-1.0); Glucose (ISTAT POC) 264 mg/dL (70-99); Hemoglobin (POC) 12.2 g/dL (12.0-16.0); Potassium (POC) 3.1 mmol/L (3.5-5.5); Sodium (POC) 144 mmol/L (135-148); Total CO2 (POC) 26 mmol/L (21-32)
[2022-08-29] MEDS ORDERED: K-Dur10 MEQ PO (17:34)
== END 2022-08-29 19:11 | disposition home or self-care (01) ==
LOC: ER 14:46
PROVIDERS: Emergency Medicine
DX: R20.8 Other disturbances of skin sensation (principal); E87.6 Hypokalemia; J44.9 Chronic obstructive pulmonary disease, unspecified; I10 Essential (primary) hypertension; K21.9 Gastro-esophageal reflux disease without esophagitis; I69.951 Hemiplegia and hemiparesis following unspecified cerebrovascular disease affecting right dominant side; F17.210 Nicotine dependence, cigarettes, uncomplicated; Z59.00 Homelessness unspecified; Z88.0 Allergy status to penicillin; Z88.2 Allergy status to sulfonamides; Z88.5 Allergy status to narcotic agent; Z88.8 Allergy status to other drugs, medicaments and biological substances; Z91.030 Bee allergy status; Z79.899 Other long term (current) drug therapy
CPT/HCPCS: 70450; 80047; 80053; 82947; 85014; 85025; 93005; 93010; 99285-25; A9270; G0480

== ENCOUNTER 2022-09-09 11:51 | Emergency (ER) | payer OTHER ==
[~2022-09-09] VITALS: Ht 157.5 cm; Wt 72.6 kg
[~2022-09-09 11:51] MED LIST changes: +K-Dur10 MEQ PO
[2022-09-09 12:48] LABS: BASOPHILS ABSOLUTE AUTO 0.05 K/mm3 (0.00-0.23); BASOPHILS PERCENT AUTO 1 % (0-2); EOSINOPHILS ABSOLUTE AUTO 0.12 K/mm3 (0.00-0.68); EOSINOPHILS PERCENT AUTO 1 % (0-6); Hemoglobin 13.9 g/dL (11.5-16.0); IMMATURE GRAN ABSOLUTE AUTO 0.04 K/mm3 (0.00-0.10); IMMATURE GRAN PERCENT AUTO 0 % (0-1); LYMPHOCYTES ABSOLUTE AUTO 3.73 K/mm3 (0.84-5.20); LYMPHOCYTES PERCENT AUTO 38 % (21-46); MONOCYTES ABSOLUTE AUTO 0.79 K/mm3 (0.16-1.47); MONOCYTES PERCENT AUTO 8 % (4-13); Mean Corpuscular HGB 27.7 pg (26.0-34.0); Mean Corpuscular HGB Conc 32.3 g/dL (31.5-36.5); Mean Corpuscular Volume 86 fL (80-100); Mean Platelet Volume 9.2 fL (9.1-12.4); NEUTROPHILS ABSOLUTE AUTO 5.03 K/mm3 (1.96-9.15); NEUTROPHILS PERCENT AUTO 52 % (41-73); Platelet Count 275 K/mm3 (150-400); RDW Coefficient Variation 13.8 % (11.7-14.2); RDW Standard Deviation 42.6 fL (35.1-46.3); Red Blood Cell Count 5.02 M/mm3 (3.80-5.20); White Blood Cell Count 9.76 K/mm3 (4.00-11.30)
[2022-09-09 13:13] LABS: Magnesium, Blood 2.3 mg/dL (1.6-2.4)
[2022-09-09 13:14] LABS: Albumin, Blood 3.2 g/dL (3.4-5.0); Albumin/Globulin Ratio 0.8 (0.8-1.8); Bilirubin, Total 0.5 mg/dL (0.1-1.0); Bun/Creatinine Ratio 10.8 (12.0-20.0); Calcium, Blood 9.6 mg/dL (8.5-10.1); Creatinine, Blood 0.56 mg/dL (0.40-1.00); Globulin, Blood 3.8 g/dL (2.2-4.0); Potassium, Blood 4.7 mmol/L (3.5-5.5)
[2022-09-09 13:23] LABS: Source, Urine Clean Catch
[2022-09-09 13:27] LABS: Appearance, Urine Clear (Clear); Bilirubin, Urine Neg (Neg); Blood, Urine Neg (Neg); Glucose Qualitative, Urine Neg (Neg); Ketones, Urine Neg (Neg); Leukocyte Esterase, Urine Neg (Neg); Nitrite, Urine Neg (Neg); Protein, Urine Neg (Neg); Urobilinogen, Urine NORM (Normal)
[2022-09-09 13:33] LABS: Color, Urine Pale Yellow (P-Yellow)
== END 2022-09-09 14:43 | disposition home or self-care (01) ==
LOC: ER 11:51
PROVIDERS: Emergency Medicine; Student in an Organized Health Care Education/Training Program
DX: R20.8 Other disturbances of skin sensation (principal); R30.0 Dysuria; J44.9 Chronic obstructive pulmonary disease, unspecified; I10 Essential (primary) hypertension; K21.9 Gastro-esophageal reflux disease without esophagitis; F17.210 Nicotine dependence, cigarettes, uncomplicated; Z88.0 Allergy status to penicillin; Z88.8 Allergy status to other drugs, medicaments and biological substances; Z88.2 Allergy status to sulfonamides; Z88.5 Allergy status to narcotic agent; Z91.030 Bee allergy status; Z79.899 Other long term (current) drug therapy; Z86.73 Personal history of transient ischemic attack (TIA), and cerebral infarction without residual deficits
CPT/HCPCS: 80053; 81003; 83735; 85025; 93005; 93010

== ENCOUNTER 2022-09-27 11:38 | Emergency (ER) | payer OTHER ==
[~2022-09-27] VITALS: Ht 154.9 cm; Wt 74.4 kg
[2022-09-27 12:04] LABS: BASOPHILS ABSOLUTE AUTO 0.04 K/mm3 (0.00-0.23); BASOPHILS PERCENT AUTO 0 % (0-2); EOSINOPHILS ABSOLUTE AUTO 0.04 K/mm3 (0.00-0.68); EOSINOPHILS PERCENT AUTO 0 % (0-6); Hematocrit 43.7 % (33.0-51.0); Hemoglobin 15.1 g/dL (11.5-16.0); IMMATURE GRAN ABSOLUTE AUTO 0.05 K/mm3 (0.00-0.10); IMMATURE GRAN PERCENT AUTO 1 % (0-1); LYMPHOCYTES PERCENT AUTO 34 % (21-46); MONOCYTES ABSOLUTE AUTO 0.95 K/mm3 (0.16-1.47); MONOCYTES PERCENT AUTO 9 % (4-13); Mean Corpuscular HGB 28.2 pg (26.0-34.0); Mean Corpuscular HGB Conc 34.6 g/dL (31.5-36.5); Mean Corpuscular Volume 82 fL (80-100); Mean Platelet Volume 9.4 fL (9.1-12.4); NEUTROPHILS PERCENT AUTO 56 % (41-73); Platelet Count 232 K/mm3 (150-400); RDW Coefficient Variation 13.2 % (11.7-14.2); RDW Standard Deviation 38.6 fL (35.1-46.3); Red Blood Cell Count 5.35 M/mm3 (3.80-5.20); White Blood Cell Count 10.08 K/mm3 (4.00-11.30)
[2022-09-27 12:25] LABS: Albumin, Blood 3.4 g/dL (3.4-5.0); Albumin/Globulin Ratio 0.8 (0.8-1.8); Bilirubin, Total 0.6 mg/dL (0.1-1.0); Bun/Creatinine Ratio 8.7 (12.0-20.0); Calcium, Blood 9.5 mg/dL (8.5-10.1); Creatinine, Blood 0.58 mg/dL (0.40-1.00); Globulin, Blood 4.1 g/dL (2.2-4.0); Potassium, Blood 2.8 mmol/L (3.5-5.5); Total Protein, Blood 7.5 g/dL (6.4-8.2)
== END 2022-09-27 16:35 | disposition home or self-care (01) ==
LOC: ER 11:38
PROVIDERS: Physician Assistant
DX: R19.7 Diarrhea, unspecified (principal); E87.6 Hypokalemia; J44.9 Chronic obstructive pulmonary disease, unspecified; I10 Essential (primary) hypertension; K21.9 Gastro-esophageal reflux disease without esophagitis; F17.210 Nicotine dependence, cigarettes, uncomplicated; Z79.899 Other long term (current) drug therapy; Z88.0 Allergy status to penicillin; Z88.2 Allergy status to sulfonamides; Z88.5 Allergy status to narcotic agent; Z91.030 Bee allergy status; Z86.73 Personal history of transient ischemic attack (TIA), and cerebral infarction without residual deficits
CPT/HCPCS: 36415; 80053; 83690; 85025; 93005; 93010; A9270; J3480; J7030; J7120

== ENCOUNTER → 2022-12-16 | Outpatient (CLI) | payer OTHER ==
[2022-12-16 13:48] LABS: Albumin, Blood 3.2 g/dL (3.4-5.0); Albumin/Globulin Ratio 0.8 (0.8-1.8); Bilirubin, Total 0.3 mg/dL (0.1-1.0); Bun/Creatinine Ratio 24.5 (12.0-20.0); Calcium, Blood 9.6 mg/dL (8.5-10.1); Creatinine, Blood 0.53 mg/dL (0.40-1.00); Globulin, Blood 4.1 g/dL (2.2-4.0); Potassium, Blood 3.3 mmol/L (3.5-5.5); Total Protein, Blood 7.3 g/dL (6.4-8.2)
== END | disposition home or self-care (01) ==
LOC: LAB SHORT 11:12 → LAB 11:12
PROVIDERS: Student in an Organized Health Care Education/Training Program
DX: K76.0 Fatty (change of) liver, not elsewhere classified (principal)
CPT/HCPCS: 80053

== ENCOUNTER 2022-12-20 09:44 | Emergency (ER) | payer OTHER ==
[~2022-12-20] VITALS: Ht 154.9 cm; Wt 72.6 kg
[2022-12-20 10:28] LABS: BASOPHILS ABSOLUTE AUTO 0.02 K/mm3 (0.00-0.23); BASOPHILS PERCENT AUTO 0 % (0-2); EOSINOPHILS ABSOLUTE AUTO 0.05 K/mm3 (0.00-0.68); EOSINOPHILS PERCENT AUTO 1 % (0-6); Hematocrit 41.6 % (33.0-51.0); Hemoglobin 14.4 g/dL (11.5-16.0); IMMATURE GRAN ABSOLUTE AUTO 0.03 K/mm3 (0.00-0.10); IMMATURE GRAN PERCENT AUTO 0 % (0-1); LYMPHOCYTES ABSOLUTE AUTO 2.33 K/mm3 (0.84-5.20); LYMPHOCYTES PERCENT AUTO 25 % (21-46); MONOCYTES PERCENT AUTO 10 % (4-13); Mean Corpuscular HGB 28.9 pg (26.0-34.0); Mean Corpuscular HGB Conc 34.6 g/dL (31.5-36.5); Mean Corpuscular Volume 84 fL (80-100); Mean Platelet Volume 8.7 fL (9.1-12.4); NEUTROPHILS ABSOLUTE AUTO 6.15 K/mm3 (1.96-9.15); NEUTROPHILS PERCENT AUTO 65 % (41-73); Platelet Count 205 K/mm3 (150-400); RDW Coefficient Variation 13.2 % (11.7-14.2); RDW Standard Deviation 40.2 fL (35.1-46.3); Red Blood Cell Count 4.98 M/mm3 (3.80-5.20); White Blood Cell Count 9.48 K/mm3 (4.00-11.30)
[2022-12-20 10:38] LABS: Source, Urine Clean Catch
[2022-12-20 10:49] LABS: Bilirubin, Urine Neg (Neg); Blood, Urine 1+ (Neg); Glucose Qualitative, Urine 2+ (Neg); Ketones, Urine Neg (Neg); Leukocyte Esterase, Urine Neg (Neg); Nitrite, Urine Neg (Neg); Protein, Urine Neg (Neg); Urobilinogen, Urine NORM (Normal); pH, Urine 6.5 (5.0-8.0)
[2022-12-20 10:51] LABS: Albumin, Blood 2.8 g/dL (3.4-5.0); Albumin/Globulin Ratio 0.7 (0.8-1.8); Bilirubin, Total 0.2 mg/dL (0.1-1.0); Calcium, Blood 9.2 mg/dL (8.5-10.1); Creatinine, Blood 0.39 mg/dL (0.40-1.00); Globulin, Blood 4.1 g/dL (2.2-4.0); Potassium, Blood 2.7 mmol/L (3.5-5.5); Total Protein, Blood 6.9 g/dL (6.4-8.2)
[2022-12-20 11:09] LABS: Appearance, Urine Hazy (Clear); Color, Urine Yellow (P-Yellow)
[2022-12-20 11:10] LABS: Bacteria Few /hpf; Squamous Epithelial Cells Few /hpf (Few); White Blood Cells, Urine 0-2 /hpf (0-5)
== END 2022-12-20 12:02 | disposition home or self-care (01) ==
LOC: ER 09:44
PROVIDERS: Physician Assistant
DX: R10.31 Right lower quadrant pain (principal); R10.32 Left lower quadrant pain; R10.10 Upper abdominal pain, unspecified; E87.6 Hypokalemia; J44.9 Chronic obstructive pulmonary disease, unspecified; G40.909 Epilepsy, unspecified, not intractable, without status epilepticus; I10 Essential (primary) hypertension; Z86.73 Personal history of transient ischemic attack (TIA), and cerebral infarction without residual deficits; K21.9 Gastro-esophageal reflux disease without esophagitis; F17.210 Nicotine dependence, cigarettes, uncomplicated; Z79.899 Other long term (current) drug therapy; Z79.01 Long term (current) use of anticoagulants
CPT/HCPCS: 36415; 80053; 81001; 83690; 84484; 85025; A9270

== ENCOUNTER → 2023-01-07 | Outpatient (CLI) | payer OTHER ==
[2023-01-07 12:18] LABS: Source, Urine Voided
[2023-01-07 13:30] LABS: White Blood Cells, Urine 50-100 /hpf (0-5)
[2023-01-07 13:32] LABS: Bacteria Many /hpf; Mucus Light (0-Heavy); Squamous Epithelial Cells Few /hpf (Few)
== END | disposition home or self-care (01) ==
LOC: LAB SHORT 12:17
PROVIDERS: Student in an Organized Health Care Education/Training Program
DX: R30.0 Dysuria (principal)
CPT/HCPCS: 81015; 87077; 87086; 87186

== ENCOUNTER 2023-07-06 12:02 | Inpatient (IN) | payer OTHER ==
[~2023-07-06] VITALS: Ht 154.9 cm; Wt 63.5 kg
[~2023-07-06 12:02] MED LIST changes: +CIPR500 PO
[2023-07-06 13:03] LABS: BASOPHILS ABSOLUTE AUTO 0.03 K/mm3 (0.00-0.23); BASOPHILS PERCENT AUTO 0 % (0-2); EOSINOPHILS ABSOLUTE AUTO 0.04 K/mm3 (0.00-0.68); EOSINOPHILS PERCENT AUTO 0 % (0-6); Hemoglobin 15.7 g/dL (11.5-16.0); IMMATURE GRAN ABSOLUTE AUTO 0.05 K/mm3 (0.00-0.10); IMMATURE GRAN PERCENT AUTO 1 % (0-1); LYMPHOCYTES ABSOLUTE AUTO 2.53 K/mm3 (0.84-5.20); LYMPHOCYTES PERCENT AUTO 24 % (21-46); MONOCYTES ABSOLUTE AUTO 1.21 K/mm3 (0.16-1.47); MONOCYTES PERCENT AUTO 11 % (4-13); Mean Corpuscular HGB 28.5 pg (26.0-34.0); Mean Corpuscular HGB Conc 34.9 g/dL (31.5-36.5); Mean Corpuscular Volume 82 fL (80-100); Mean Platelet Volume 9.6 fL (9.1-12.4); NEUTROPHILS ABSOLUTE AUTO 6.76 K/mm3 (1.96-9.15); NEUTROPHILS PERCENT AUTO 64 % (41-73); Platelet Count 168 K/mm3 (150-400); RDW Coefficient Variation 12.5 % (11.7-14.2); RDW Standard Deviation 37.5 fL (35.1-46.3); White Blood Cell Count 10.62 K/mm3 (4.00-11.30)
[2023-07-06 13:30] LABS: Albumin, Blood 3.2 g/dL (3.4-5.0); Albumin/Globulin Ratio 0.7 (0.8-1.8); Bilirubin, Total 0.6 mg/dL (0.1-1.0); Bun/Creatinine Ratio 12.1 (12.0-20.0); Calcium, Blood 9.3 mg/dL (8.5-10.1); Creatinine, Blood 0.74 mg/dL (0.40-1.00); Globulin, Blood 4.4 g/dL (2.2-4.0); Potassium, Blood 3.1 mmol/L (3.5-5.5); Total Protein, Blood 7.6 g/dL (6.4-8.2)
[2023-07-06 16:32] LABS: Source, Urine Straight Cath
[2023-07-06 16:36] LABS: Appearance, Urine Clear (Clear); Bilirubin, Urine Neg (Neg); Blood, Urine 3+ (Neg); Color, Urine Yellow (P-Yellow); Glucose Qualitative, Urine Neg (Neg); Ketones, Urine Neg (Neg); Leukocyte Esterase, Urine Neg (Neg); Nitrite, Urine Neg (Neg); Protein, Urine Neg (Neg); Urobilinogen, Urine NORM (Normal)
[2023-07-06 16:59] LABS: Bacteria Rare /hpf; Squamous Epithelial Cells Rare /hpf (Few)
[2023-07-06 21:00] VITALS: BP 116/94
[2023-07-07 04:38] VITALS: BP 126/68
[2023-07-07 04:44] LABS: Hematocrit 34.9 % (33.0-51.0); Hemoglobin 11.9 g/dL (11.5-16.0); Mean Corpuscular HGB 28.5 pg (26.0-34.0); Mean Corpuscular HGB Conc 34.1 g/dL (31.5-36.5); Mean Corpuscular Volume 84 fL (80-100); Mean Platelet Volume 9.5 fL (9.1-12.4); Platelet Count 145 K/mm3 (150-400); RDW Coefficient Variation 12.7 % (11.7-14.2); RDW Standard Deviation 38.6 fL (35.1-46.3); Red Blood Cell Count 4.17 M/mm3 (3.80-5.20); White Blood Cell Count 8.41 K/mm3 (4.00-11.30)
[2023-07-07 05:00] LABS: Bun/Creatinine Ratio 13.1 (12.0-20.0); Calcium, Blood 8.4 mg/dL (8.5-10.1); Creatinine, Blood 0.69 mg/dL (0.40-1.00); Magnesium, Blood 1.4 mg/dL (1.6-2.4); Potassium, Blood 3.7 mmol/L (3.5-5.5)
--- NOTE | 2023-07-07 06:02 | NUR ---
EOS NOTE: PATIENT ARRIVED TO THE FLOOR FROM ED AT 2100. A/OX3, FORGETFUL AND NOT A GREAT HISTORIAN. PATIENT GAVE VERBAL YES/NO FOR MEDICATION LIST BUT HAD DIFFICULTY DESCRIBING WHAT BROUGHT HER IN OR WHAT SYMPTOMS SHE WAS HAVING NOW. PATIENT COMPLAINED OF SEVERE PAIN DIRECTOR SUPPLY LIGHT, WHEN RN REACHED PT ROOM PT WAS RESTING QUIETLY. STATES SHE IS WHEELCHAIR AT BASELINE, HER BOYFRIEND TAKES CARE OF HER AT THEIR HOME. VSS. COCCYX IS EXCORIATED DUE TO RECENT INCONTINENCE, SKIN IS OVERALL VERY FRAGILE. WILL CONTINUE TO MONITOR, PT HAS NO FURTHER COMPLAINTS AT THIS TIME, WILL CONTINUE TO MONITOR.
[2023-07-07 07:10] VITALS: BP 118/78
[2023-07-07 15:27] VITALS: BP 120/81
--- NOTE | 2023-07-07 19:06 | NUR ---
SHIFT SUMMARY PT A&OX3/DEV DELAY, VSS, JAKUB PO CLD, VOIDING USING BSC/OCC INCONTINENT, 1 BM TODAY, AMB W/FWW & GB- UP TO CHAIR, PAIN MANAGED, IVF @ 150 MLS/HR. REPORT PROVIDED TO MAURICIO MAZARIEGOS.
[2023-07-07 19:26] VITALS: BP 128/83
[2023-07-08 04:42] VITALS: BP 147/83
[2023-07-08 05:03] LABS: Bun/Creatinine Ratio 8.1 (12.0-20.0); Calcium, Blood 8.3 mg/dL (8.5-10.1); Creatinine, Blood 0.62 mg/dL (0.40-1.00); Magnesium, Blood 1.4 mg/dL (1.6-2.4); Potassium, Blood 3.4 mmol/L (3.5-5.5)
[2023-07-08 08:05] VITALS: BP 144/79
--- NOTE | 2023-07-08 10:24 | NUR ---
PT REPORTS TOLERATING SIPS CLEAR ALICEQ. VOIDING -PURE-RAKANK @ [employer].
[2023-07-08 14:02] VITALS: BP 148/88
--- NOTE | 2023-07-08 17:02 | NUR ---
SHIFT SUMMARY PT A&OX3/DEV DELAY/PLEASANT & COOPERATIVE, JAKUB PO FINGER FOOD DIET, VOIDING/ATTENDS ON, AMB SBA FWW/GB TO BRP AND HALLWAY/UP TO CHAIR, DENIES NEED FOR PAIN MED. PLAN FOR DC TUESDAY PER SURGEON. WILL REPORT TO ONCOMING NOC RN.
[2023-07-08 21:05] VITALS: BP 154/98
--- NOTE | 2023-07-09 01:00 | NUR ---
PROGRESS NOTE. AT APPROXIMATELTY 0100 PT USED HER CALL LIGHT AND REPORTED TO THIS RN THAT SHE FELT LIKE SHE WAS "GOING TO HAVE A SEIZURE". PT REPORTED SHE HAD AN UNUSUAL SENSATION FROM HER LEFT SHOULDER TO HER LEFT KNEE. PT DENIED SHORTNESS OF BREATH OR CHEST PAIN AT THE TIME. SEIZURE PRECAUTIONS INITIATED. CONSULTED WITH MACHINE BENDER CARMEN BROUSSARD AND ASSESSED PT TOGETHER. PT GIVEN PRN HYDROXYZINE FOR ANXIETY SYMPTOMS AT 0114. REASSESSED ANXIETY AT APPROX 0130 AND PT REPORTED FEELING "BETTER " AND "NO LONGER FELT LIKE HAVING A SEIZURE". PROVIDED REASSURANCE THAT PT TOOK HER ANTI-SEZURE MEDICATION PRESCRIBED. EDUCATED PT ON BELLY BREATHING AND RELAXATION TECHNIQUES.
[2023-07-09 03:27] VITALS: BP 130/83
--- NOTE | 2023-07-09 05:45 | NUR ---
SHIFT SUMMARY NOC. PT IS A/O X4 WITH HX OF DEVELOPMENTAL DELAY. PT UTILIZES CALL LIGHT APPROPRIATLY. PT IS A STANDBY ASSIST TO THE COMMODE BUT INTERMITTENTLY IS INCONTINENT WELL. PT HAD AN EPISODE OF NAUSEA AND ABD ACHING EARLY IN THE SHIFT THAT IMPROVED WITH ORAL ZOFRAN. PT HAD EPISODE OF ANXETY THAT RESOLVED WITH HYDROYZINE (PLEASE SEE PREVIOUS NOTE FOR DETAILS). PT'S IV ACESS WAS LEAKING WITH FLUSH THIS SHIFT AND PT ASKED FOR IV TO BE TAKEN OUT. DISCUSSED WITH CAREER DEVELOPMENT COORDINATOR/TEACHERYAIR BROUSSARD AND D/C'D VASCULAR ACCESS PER PT REQUEST. PT ALSO HAD AN EPISODE OF SOB EARLIER IN THE SHIFT THAT RESOLVED WITH RAISING THE HOB.
[2023-07-09 08:23] LABS: BASOPHILS ABSOLUTE AUTO 0.04 K/mm3 (0.00-0.23); BASOPHILS PERCENT AUTO 1 % (0-2); EOSINOPHILS ABSOLUTE AUTO 0.13 K/mm3 (0.00-0.68); EOSINOPHILS PERCENT AUTO 2 % (0-6); Hematocrit 37.7 % (33.0-51.0); Hemoglobin 12.9 g/dL (11.5-16.0); IMMATURE GRAN ABSOLUTE AUTO 0.04 K/mm3 (0.00-0.10); IMMATURE GRAN PERCENT AUTO 1 % (0-1); LYMPHOCYTES ABSOLUTE AUTO 2.34 K/mm3 (0.84-5.20); LYMPHOCYTES PERCENT AUTO 33 % (21-46); MONOCYTES ABSOLUTE AUTO 0.93 K/mm3 (0.16-1.47); MONOCYTES PERCENT AUTO 13 % (4-13); Mean Corpuscular HGB 28.4 pg (26.0-34.0); Mean Corpuscular HGB Conc 34.2 g/dL (31.5-36.5); Mean Corpuscular Volume 83 fL (80-100); Mean Platelet Volume 9.1 fL (9.1-12.4); NEUTROPHILS ABSOLUTE AUTO 3.73 K/mm3 (1.96-9.15); NEUTROPHILS PERCENT AUTO 52 % (41-73); Platelet Count 167 K/mm3 (150-400); RDW Coefficient Variation 13.1 % (11.7-14.2); RDW Standard Deviation 39.6 fL (35.1-46.3); Red Blood Cell Count 4.55 M/mm3 (3.80-5.20); White Blood Cell Count 7.21 K/mm3 (4.00-11.30)
[2023-07-09 08:24] VITALS: BP 143/84
[2023-07-09 08:44] LABS: Albumin, Blood 2.5 g/dL (3.4-5.0); Anion Gap 7 mmol/L (6-16); Blood Urea Nitrogen 4 mg/dL (8-24); Bun/Creatinine Ratio 6.4 (12.0-20.0); CO2, Blood 31 mmol/L (21-32); Calcium, Blood 8.8 mg/dL (8.5-10.1); Chloride, Blood 108 mmol/L (98-108); Creatinine, Blood 0.63 mg/dL (0.40-1.00); Glomerular Filtration Rate 105 (60-); Glucose, Blood 113 mg/dL (70-99); Magnesium, Blood 1.4 mg/dL (1.6-2.4); Phosphorus, Blood 4.3 mg/dL (2.5-4.9); Potassium, Blood 3.5 mmol/L (3.5-5.5); Sodium, Blood 146 mmol/L (136-145)
[2023-07-09] MEDS ORDERED: VISBIOME 112.51 EACH PO (11:58)
[2023-07-09] MEDS ORDERED: METR500 PO (11:59)
--- NOTE | 2023-07-09 15:08 | NUR ---
DISCHARGE SUMMARY S/P ABSCESS, A/O X4, VSS, TOLERATING PO, AMBULATING WITH FWW/GB, DENIES PAIN, PT HAD ALREADY REMOVED HER IV PRIOR TO DAY SHIFT STARTING. DISCUSSED DISCHARGE INSTRUCTIONS WITH HER INCLUDING HOME CARE, MEDICATIONS, AND FOLLOW UP APPOINTMENTS. NO QUESTIONS AT TIME OF DISCHARGE. TRANSPORTATION ARRANGED THROUGH [facility]UR[facility]. PT ESCORTED OUT VIA WC TO GO TO HER SISTERS HOME.
== END 2023-07-09 12:34 | disposition home or self-care (01) | DRG 392 ==
LOC: ER 12:02 → SURS 20:31
PROVIDERS: Emergency Medicine; Nurse Practitioner Acute Care; Surgery; ADMIT Internal Medicine
DX: K57.20 Diverticulitis of large intestine with perforation and abscess without bleeding (principal); F31.9 Bipolar disorder, unspecified; G40.909 Epilepsy, unspecified, not intractable, without status epilepticus; J44.9 Chronic obstructive pulmonary disease, unspecified; E83.42 Hypomagnesemia; E87.6 Hypokalemia; I10 Essential (primary) hypertension; K21.9 Gastro-esophageal reflux disease without esophagitis; N32.81 Overactive bladder; F41.9 Anxiety disorder, unspecified; E78.5 Hyperlipidemia, unspecified; G62.9 Polyneuropathy, unspecified; F17.210 Nicotine dependence, cigarettes, uncomplicated; Z98.890 Other specified postprocedural states; Z86.73 Personal history of transient ischemic attack (TIA), and cerebral infarction without residual deficits; Z79.02 Long term (current) use of antithrombotics/antiplatelets; Z79.899 Other long term (current) drug therapy; Z88.0 Allergy status to penicillin; Z88.2 Allergy status to sulfonamides; Z88.1 Allergy status to other antibiotic agents; Z88.8 Allergy status to other drugs, medicaments and biological substances; Z90.49 Acquired absence of other specified parts of digestive tract; Z90.710 Acquired absence of both cervix and uterus
CPT/HCPCS: 36415; 51701; 71046; 74177; 80048; 80053; 80069; 81001; 83690; 83735; 85025; 85027; 87040; 94640; 94664; 94760; 96361-59; 96365-59; 96366; 96368; 96375-59; 99285-25; A9270; C9113; J0744; J1170; J2405; J2543; J3010; J3475; J3480; J7030; J7050; J7120; Q9967

== ENCOUNTER 2023-07-11 15:37 | Observation (INO) | payer OTHER ==
[~2023-07-11] VITALS: Ht 154.9 cm; Wt 63.5 kg
[~2023-07-11 15:37] MED LIST changes: +METR500 PO; +VISBIOME 112.51 EACH PO
[2023-07-11 16:44] LABS: BASOPHILS ABSOLUTE AUTO 0.02 K/mm3 (0.00-0.23); BASOPHILS PERCENT AUTO 0 % (0-2); EOSINOPHILS ABSOLUTE AUTO 0.12 K/mm3 (0.00-0.68); EOSINOPHILS PERCENT AUTO 1 % (0-6); Hematocrit 43.3 % (33.0-51.0); Hemoglobin 14.8 g/dL (11.5-16.0); IMMATURE GRAN ABSOLUTE AUTO 0.05 K/mm3 (0.00-0.10); IMMATURE GRAN PERCENT AUTO 1 % (0-1); LYMPHOCYTES ABSOLUTE AUTO 2.72 K/mm3 (0.84-5.20); LYMPHOCYTES PERCENT AUTO 31 % (21-46); MONOCYTES ABSOLUTE AUTO 1.09 K/mm3 (0.16-1.47); MONOCYTES PERCENT AUTO 13 % (4-13); Mean Corpuscular HGB 28.7 pg (26.0-34.0); Mean Corpuscular HGB Conc 34.2 g/dL (31.5-36.5); Mean Corpuscular Volume 84 fL (80-100); Mean Platelet Volume 8.6 fL (9.1-12.4); NEUTROPHILS ABSOLUTE AUTO 4.75 K/mm3 (1.96-9.15); NEUTROPHILS PERCENT AUTO 54 % (41-73); Platelet Count 225 K/mm3 (150-400); RDW Coefficient Variation 13.1 % (11.7-14.2); RDW Standard Deviation 40.6 fL (35.1-46.3); Red Blood Cell Count 5.15 M/mm3 (3.80-5.20); White Blood Cell Count 8.75 K/mm3 (4.00-11.30)
[2023-07-11 16:59] LABS: Prothrombin Time Results 10.5 Sec (9.7-11.5)
[2023-07-11 17:07] LABS: Alanine Aminotransfer (ALT/SGP 33 U/L (12-78); Albumin, Blood 3.3 g/dL (3.4-5.0); Albumin/Globulin Ratio 0.8 (0.8-1.8); Alk Phos 221 U/L (50-136); Anion Gap 5 mmol/L (6-16); Aspartate Aminotrans (AST/SGOT 45 U/L (12-37); Bilirubin, Direct <0.1 mg/dL (0.0-0.3); Bilirubin, Indirect Unable to Calculate mg/dL (0.1-0.7); Bilirubin, Total 0.3 mg/dL (0.1-1.0); Blood Urea Nitrogen 7 mg/dL (8-24); Bun/Creatinine Ratio 12.8 (12.0-20.0); CO2, Blood 31 mmol/L (21-32); Calcium, Blood 9.6 mg/dL (8.5-10.1); Chloride, Blood 105 mmol/L (98-108); Creatinine, Blood 0.55 mg/dL (0.40-1.00); Globulin, Blood 4.3 g/dL (2.2-4.0); Glomerular Filtration Rate 108 (60-); Glucose, Blood 89 mg/dL (70-99); Potassium, Blood 3.1 mmol/L (3.5-5.5); Sodium, Blood 141 mmol/L (136-145); Total Protein, Blood 7.6 g/dL (6.4-8.2)
[2023-07-11 22:17] VITALS: BP 151/97
--- NOTE | 2023-07-12 04:25 | NUR ---
SHIFT SUMMARY. PT ARRIVED ON UNIT EARLY IN SHIFT. AOX3, PLEASANT, AND COOPERATIVE WITH CARE THUS FAR. PAIN ADEQUATELY MANAGED VIA EMAR AND NONPHARMACOLOGICAL PAIN THERAPIES. REGULAR DIET, PT HAS TOLERATED PO INTAKE WELL. SOME COMPLAINTS OF MILD NAUSEA EARLY IN SHIFT, ALLEVIATED PER EMAR. SBA TRANSFER TO BEDSIDE COMMODE. CONTINENT/INCONTINENT. SATTING WELL ON ROOM AIR. USES CALL LIGHT APPROPRIATELY. SKIN ASSESSMENT LARGELY UNREMARKABLE OUTSIDE OF REDNESS IN KIM AREA. NOTIFIED HOSPITALIST DR. CUEVAS WHO ORDERED ANTIFUNGAL POWDER BID. PT HAS SLEPT SPORADICALLY THROUGHOUT SHIFT. BED LOCKED IN LOWEST POSITION. CALL LIGHT LEFT WITHIN REACH.
[2023-07-12 05:03] VITALS: BP 136/87
[2023-07-12 05:52] LABS: Bun/Creatinine Ratio 11.4 (12.0-20.0); Calcium, Blood 8.5 mg/dL (8.5-10.1); Creatinine, Blood 0.61 mg/dL (0.40-1.00); Potassium, Blood 3.8 mmol/L (3.5-5.5)
[2023-07-12 07:43] VITALS: BP 136/86
[2023-07-12 16:35] VITALS: BP 133/81
--- NOTE | 2023-07-12 18:03 | NUR ---
SHIFT SUMMARY; CASE MANGGILES CAME TO SEE PATIENT TODAY AND SPEAK ABOUT PATIENT INABILITY TO OBTAIN HER PRESCRIPTIONS WHEN DISCHARGED. PATIENT HAS OHP AND THIS DOES PROVIDE FREE RIDES. ALSO [facility] CAN PROVIDE FREE RIDES FOR THIS RUTHIETENT WITH 24 HOURS NOTICE. SISTER AND PATIENTS BOYFRIEND DO COME TO ROOM AND SPEAK WITH NETWORK PRICING CONSULTANT ABOUT WHAT IT WOULD LOOK LIKE IF LAVERNT RETURNED HOME. PER NETWORK PRICING CONSULTANT PATIENT DOES HAVE AN OPPORTUNITY TO GO TO [facility] POSSIBLY. NETWORK PRICING CONSULTANT WILL CALL THEM TO COME EVAL THIS PATIENT. PATIENT WAS ENCOURAGED TO GET UP TO RECLINER AND IS ENCOURAGED TO AMBULATE TO AND FROM THE BATHROOM TODAY, WITH A STAND BY ASSIST.
[2023-07-12 20:01] VITALS: BP 141/87
[2023-07-13 02:07] VITALS: BP 111/73
--- NOTE | 2023-07-13 04:33 | NUR ---
SHIFT SUMMARY. SHIFT HAS BEEN UNREMARKABLE. PT HAS BEEN PLEASANT, COOPERATIVE WITH CARE. SLEPT THROUGH MOST OF SHIFT THUS FAR. SOME SPORADIC COMPLAINTS OF PAIN MAANGED VIA PRN PAIN MEDICATIONS. NO VOMITING THIS SHIFT. CALLS APPROPRIATELY. AFEBRILE THIS SHIFT. BED LOCKED IN LOWEST POSITION.CALL LIGHT LEFT WITHIN REACH.
[2023-07-13 07:09] VITALS: BP 115/71
[2023-07-13 08:53] LABS: BASOPHILS ABSOLUTE AUTO 0.04 K/mm3 (0.00-0.23); BASOPHILS PERCENT AUTO 0 % (0-2); EOSINOPHILS ABSOLUTE AUTO 0.11 K/mm3 (0.00-0.68); EOSINOPHILS PERCENT AUTO 1 % (0-6); Hematocrit 37.7 % (33.0-51.0); Hemoglobin 12.3 g/dL (11.5-16.0); IMMATURE GRAN ABSOLUTE AUTO 0.03 K/mm3 (0.00-0.10); IMMATURE GRAN PERCENT AUTO 0 % (0-1); LYMPHOCYTES PERCENT AUTO 22 % (21-46); MONOCYTES ABSOLUTE AUTO 1.24 K/mm3 (0.16-1.47); MONOCYTES PERCENT AUTO 12 % (4-13); Mean Corpuscular HGB 28.2 pg (26.0-34.0); Mean Corpuscular HGB Conc 32.6 g/dL (31.5-36.5); Mean Corpuscular Volume 87 fL (80-100); Mean Platelet Volume 8.4 fL (9.1-12.4); NEUTROPHILS ABSOLUTE AUTO 6.69 K/mm3 (1.96-9.15); NEUTROPHILS PERCENT AUTO 64 % (41-73); Platelet Count 196 K/mm3 (150-400); RDW Coefficient Variation 13.1 % (11.7-14.2); RDW Standard Deviation 41.4 fL (35.1-46.3); Red Blood Cell Count 4.36 M/mm3 (3.80-5.20); White Blood Cell Count 10.41 K/mm3 (4.00-11.30)
[2023-07-13] MEDS ORDERED: METR500 PO (12:49)
[2023-07-13] MEDS ORDERED: Percocet 5-3251 EACH PO (12:49)
[2023-07-13] MEDS ORDERED: VISBIOME 112.51 EACH PO (12:50)
--- NOTE | 2023-07-13 14:00 | NUR ---
SHIFT SUMMARY AND DISCHARGE PATIENT DISCHARGED TO HER SISTER'S HOME. PATIENT ALERT AND INTERACTIVE BUT CHILD LIKE WITH BEHAVIORS. DISCHARGE INSTRUCTIONS REVIEWED WITH PATIENT. PATIENT STATING SHE DOESN'T MANAGE HER MEDICATIONS AND HER SISTER WILL BE DOING IT. INSTRUCTED PATIENT TO GIVE LIST TO SISTER AND HAVE HER CALL IF SHE HAS ANY TROUBLES. IV DC'D PRIOR TO DISCHARGE. ROOM CHECK DONE BEFORE PATIENT DEPARTED. BELONGINGS SENT HOME WITH PATIENT.
== END 2023-07-13 14:15 | disposition home or self-care (01) ==
LOC: ER 15:37 → MEDS 15:38 → ENPENDDIS 07-13 12:53 → MEDS 07-13 14:15
PROVIDERS: Student in an Organized Health Care Education/Training Program; ADMIT Hospitalist
DX: K57.32 Diverticulitis of large intestine without perforation or abscess without bleeding (principal); F31.9 Bipolar disorder, unspecified; I10 Essential (primary) hypertension; E87.6 Hypokalemia; Z88.2 Allergy status to sulfonamides; Z88.0 Allergy status to penicillin; Z88.5 Allergy status to narcotic agent; Z88.8 Allergy status to other drugs, medicaments and biological substances
CPT/HCPCS: 36415; 74177; 80048; 80076; 85025; 85610; 85730; 96365-59; 96366; 96375; 96376; 99285-25; A9270; G0378; J2270; J2405; J3010; J3480; J7050; J7120; Q9967

== ENCOUNTER 2023-07-16 10:10 | Emergency (ER) | payer OTHER ==
[~2023-07-16] VITALS: Ht 154.9 cm; Wt 63.5 kg
[2023-07-16 11:00] LABS: BASOPHILS ABSOLUTE AUTO 0.04 K/mm3 (0.00-0.23); BASOPHILS PERCENT AUTO 0 % (0-2); EOSINOPHILS ABSOLUTE AUTO 0.06 K/mm3 (0.00-0.68); EOSINOPHILS PERCENT AUTO 1 % (0-6); Hematocrit 43.8 % (33.0-51.0); Hemoglobin 14.9 g/dL (11.5-16.0); IMMATURE GRAN ABSOLUTE AUTO 0.05 K/mm3 (0.00-0.10); IMMATURE GRAN PERCENT AUTO 1 % (0-1); LYMPHOCYTES ABSOLUTE AUTO 2.79 K/mm3 (0.84-5.20); LYMPHOCYTES PERCENT AUTO 30 % (21-46); MONOCYTES ABSOLUTE AUTO 0.73 K/mm3 (0.16-1.47); MONOCYTES PERCENT AUTO 8 % (4-13); Mean Corpuscular HGB 28.8 pg (26.0-34.0); Mean Corpuscular Volume 85 fL (80-100); Mean Platelet Volume 8.8 fL (9.1-12.4); NEUTROPHILS ABSOLUTE AUTO 5.52 K/mm3 (1.96-9.15); NEUTROPHILS PERCENT AUTO 60 % (41-73); Platelet Count 327 K/mm3 (150-400); RDW Coefficient Variation 13.5 % (11.7-14.2); RDW Standard Deviation 41.6 fL (35.1-46.3); Red Blood Cell Count 5.17 M/mm3 (3.80-5.20); White Blood Cell Count 9.19 K/mm3 (4.00-11.30)
[2023-07-16 11:22] LABS: Albumin, Blood 3.4 g/dL (3.4-5.0); Albumin/Globulin Ratio 0.7 (0.8-1.8); Bilirubin, Total 0.5 mg/dL (0.1-1.0); Bun/Creatinine Ratio 8.3 (12.0-20.0); Calcium, Blood 9.5 mg/dL (8.5-10.1); Creatinine, Blood 0.6 mg/dL (0.40-1.00); Globulin, Blood 4.9 g/dL (2.2-4.0); Potassium, Blood 4.8 mmol/L (3.5-5.5); Total Protein, Blood 8.3 g/dL (6.4-8.2)
[2023-07-16] MEDS ORDERED: METR500 PO (12:58)
[2023-07-16] MEDS ORDERED: PROBIOTIC1 EA13 PO (12:58)
[2023-07-16] MEDS ORDERED: CIPR500 PO (12:58)
[2023-07-16] MEDS ORDERED: ONDA4ODT MM (12:58)
[2023-07-16] MEDS ORDERED: HYDR1TAB94 PO (12:58)
[2023-07-16 13:15] VITALS: BP 142/92
== END 2023-07-16 13:21 | disposition home or self-care (01) ==
LOC: ER 10:10
PROVIDERS: Physician Assistant
DX: K57.32 Diverticulitis of large intestine without perforation or abscess without bleeding (principal); F17.210 Nicotine dependence, cigarettes, uncomplicated; J44.9 Chronic obstructive pulmonary disease, unspecified; G40.909 Epilepsy, unspecified, not intractable, without status epilepticus; Z86.73 Personal history of transient ischemic attack (TIA), and cerebral infarction without residual deficits; G43.909 Migraine, unspecified, not intractable, without status migrainosus; E78.5 Hyperlipidemia, unspecified; K21.9 Gastro-esophageal reflux disease without esophagitis; I10 Essential (primary) hypertension; Z79.51 Long term (current) use of inhaled steroids; Z79.02 Long term (current) use of antithrombotics/antiplatelets; Z79.52 Long term (current) use of systemic steroids; Z79.899 Other long term (current) drug therapy; Z79.1 Long term (current) use of non-steroidal anti-inflammatories (NSAID); Z88.0 Allergy status to penicillin; Z88.1 Allergy status to other antibiotic agents; Z88.2 Allergy status to sulfonamides; Z88.5 Allergy status to narcotic agent; Z88.8 Allergy status to other drugs, medicaments and biological substances; Z91.09 Other allergy status, other than to drugs and biological substances
CPT/HCPCS: 74177; 80053; 85025; 96374-59; 96375; 99284-25; J2405; J3010; J7030; Q9967

== ENCOUNTER 2023-07-25 16:44 | Observation (INO) | payer OTHER ==
[~2023-07-25] VITALS: Ht 154.9 cm; Wt 64.9 kg
[~2023-07-25 16:44] MED LIST changes: +HYDR1TAB94 PO; +PROBIOTIC1 EA13 PO
[2023-07-25 17:13] LABS: BASOPHILS ABSOLUTE AUTO 0.03 K/mm3 (0.00-0.23); BASOPHILS PERCENT AUTO 0 % (0-2); EOSINOPHILS ABSOLUTE AUTO 0.08 K/mm3 (0.00-0.68); EOSINOPHILS PERCENT AUTO 1 % (0-6); Hematocrit 43.1 % (33.0-51.0); IMMATURE GRAN ABSOLUTE AUTO 0.02 K/mm3 (0.00-0.10); IMMATURE GRAN PERCENT AUTO 0 % (0-1); LYMPHOCYTES ABSOLUTE AUTO 3.25 K/mm3 (0.84-5.20); LYMPHOCYTES PERCENT AUTO 38 % (21-46); MONOCYTES ABSOLUTE AUTO 0.52 K/mm3 (0.16-1.47); MONOCYTES PERCENT AUTO 6 % (4-13); Mean Corpuscular HGB Conc 34.8 g/dL (31.5-36.5); Mean Corpuscular Volume 83 fL (80-100); Mean Platelet Volume 9.6 fL (9.1-12.4); NEUTROPHILS PERCENT AUTO 55 % (41-73); Platelet Count 228 K/mm3 (150-400); RDW Coefficient Variation 13.1 % (11.7-14.2); Red Blood Cell Count 5.18 M/mm3 (3.80-5.20)
[2023-07-25 17:28] LABS: Albumin, Blood 3.8 g/dL (3.4-5.0); Albumin/Globulin Ratio 0.9 (0.8-1.8); Bilirubin, Total 0.3 mg/dL (0.1-1.0); Bun/Creatinine Ratio 15.7 (12.0-20.0); Calcium, Blood 9.9 mg/dL (8.5-10.1); Creatinine, Blood 1.15 mg/dL (0.40-1.00); Globulin, Blood 4.4 g/dL (2.2-4.0); Potassium, Blood 3.1 mmol/L (3.5-5.5); Total Protein, Blood 8.2 g/dL (6.4-8.2)
[2023-07-25 18:09] LABS: Source, Urine Clean Catch
[2023-07-25 18:34] LABS: Appearance, Urine Hazy (Clear); Bilirubin, Urine Neg (Neg); Blood, Urine 3+ (Neg); Color, Urine Amber (P-Yellow); Glucose Qualitative, Urine 1+ (Neg); Ketones, Urine 1+ (Neg); Leukocyte Esterase, Urine 1+ (Neg); Nitrite, Urine Neg (Neg); Protein, Urine 2+ (Neg); Urobilinogen, Urine NORM (Normal)
[2023-07-25 19:09] LABS: Bacteria Many /hpf; Hyaline Casts 0-2 /lpf (0-2); Renal Epithelial Rare /hpf (0-Rare); Squamous Epithelial Cells Mod /hpf (Few); White Blood Cells, Urine 25-50 /hpf (0-5)
[2023-07-25 21:06] VITALS: BP 141/101
[2023-07-25 21:07] VITALS: BP 145/93
--- NOTE | 2023-07-26 02:56 | NUR ---
PT ADMITTED TO ROOM 328 AT 2100 FROM ED VIA WHEELCHAIR, SBA TO BED. SKIN INTACT. ORIENTED TO ROOM, CALL LIGHT AND SAFETY.
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
[2023-07-26 05:05] VITALS: BP 147/85
[2023-07-26 06:16] LABS: Bun/Creatinine Ratio 18.6 (12.0-20.0); Calcium, Blood 8.2 mg/dL (8.5-10.1); Creatinine, Blood 0.75 mg/dL (0.40-1.00); Potassium, Blood 3.1 mmol/L (3.5-5.5)
[2023-07-26 07:31] VITALS: BP 146/86
--- NOTE | 2023-07-26 14:08 | NUR ---
Pt. is awake in bed. Friend is present and welcomes my visit. Pt. displays evidence of fear and anxiety. Facilitate a short life review and listen with empathy and a calming presence. Pt. verbalized being anxious about being discharged to a local rehab facility. Normalized the Pt. experience. Pt. displayed evidence of understanding, but also displayed evidence of cautious fear. Pt. permitted me to pray for her. Prayed for Pt. Pt. verbalized affirmation of this still pump operator to return if she is not discharged first.
[2023-07-26 16:06] VITALS: BP 133/89
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
[2023-07-26 19:52] VITALS: BP 145/90
[2023-07-27 03:12] VITALS: BP 146/90
--- NOTE | 2023-07-27 05:08 | NUR ---
END OF SHIFT SUMMARY PT A&O FLUCUATING BETWEEN x2-3. VSS, AFEBRILE. PT APPEARS TO HAVE A FLAT AFFECT AND IS WITHDRAWN. DELAYED RESPONSES TO ASSESSMENT QUESTIONS, BUT HAD APPROPRIATE ANSWERS. PT C/O ABDOMINAL PAIN A RATING OF 10/10 TO THE RUQ AND RLQ REGION. PAIN MANAGED WITH PRN FENTANYL x2. PAIN MEDICATION EFFECTIVE, PT SEEMED TO BE SLEEPING PEACEFULLY. PT HAD 2 EPISODES OF INCONTINENCE. PT 1P ASSIST TO THE BSC. PT ABLE TO MAKE NEEDS KNOWN. CALL LIGHT WITHIN REACH, WCTM.
[2023-07-27 06:17] LABS: BASOPHILS ABSOLUTE AUTO 0.04 K/mm3 (0.00-0.23); BASOPHILS PERCENT AUTO 1 % (0-2); EOSINOPHILS ABSOLUTE AUTO 0.09 K/mm3 (0.00-0.68); EOSINOPHILS PERCENT AUTO 1 % (0-6); Hematocrit 33.9 % (33.0-51.0); Hemoglobin 11.8 g/dL (11.5-16.0); IMMATURE GRAN ABSOLUTE AUTO 0.02 K/mm3 (0.00-0.10); IMMATURE GRAN PERCENT AUTO 0 % (0-1); LYMPHOCYTES ABSOLUTE AUTO 3.46 K/mm3 (0.84-5.20); LYMPHOCYTES PERCENT AUTO 46 % (21-46); MONOCYTES ABSOLUTE AUTO 0.61 K/mm3 (0.16-1.47); MONOCYTES PERCENT AUTO 8 % (4-13); Mean Corpuscular HGB 28.5 pg (26.0-34.0); Mean Corpuscular HGB Conc 34.8 g/dL (31.5-36.5); Mean Corpuscular Volume 82 fL (80-100); Mean Platelet Volume 10.3 fL (9.1-12.4); NEUTROPHILS ABSOLUTE AUTO 3.35 K/mm3 (1.96-9.15); NEUTROPHILS PERCENT AUTO 44 % (41-73); Platelet Count 180 K/mm3 (150-400); RDW Coefficient Variation 13.1 % (11.7-14.2); RDW Standard Deviation 39.5 fL (35.1-46.3); Red Blood Cell Count 4.14 M/mm3 (3.80-5.20); White Blood Cell Count 7.57 K/mm3 (4.00-11.30)
[2023-07-27 06:49] LABS: Bun/Creatinine Ratio 23.4 (12.0-20.0); Calcium, Blood 8.6 mg/dL (8.5-10.1); Creatinine, Blood 0.51 mg/dL (0.40-1.00); Potassium, Blood 3.2 mmol/L (3.5-5.5)
[2023-07-27 07:27] VITALS: BP 148/87
[2023-07-27 16:01] VITALS: BP 138/90
--- NOTE | 2023-07-27 17:29 | NUR ---
SUMMARY- PT AAOX3 TODAY-IMPROVED FROM YESTERDAY. X1 SBA W/ WALKER. PT WALKED THE HALLS TODAY W/WALKER. GOOD APPETITE. SISTER VISITED THIS AFTERNOON. PAIN IS RESOLVED IN ABDOMEN FOR THE MOST PART. PT DID HAVE TYLENOL THIS SHIFT FOR PAIN 5/10 IN ABD, WHICH IMPROVED TO 3/10 AFTER TYLENOL.
[2023-07-27 19:26] VITALS: BP 133/82
[2023-07-28 01:51] VITALS: BP 124/77
--- NOTE | 2023-07-28 06:07 | NUR ---
END OF SHIFT SUMMARY PT A&O x3, PT PLEASANT AND COOPERATIVE WITH CARE PROVIDED. PT DENIED N/V. PAIN TO RLQ MANAGED WITH PRN APAP. PAIN REASSESSMENT WAS EFFECTIVE, PT APPEARED TO BE SOUND ASLEEP WITH EYES CLOSED. PT 1P ASSIST TO BSC. PT ABLE TO MAKE NEEDS KNOWN. CALL LIGHT WITHIN REACH, WCTM.
[2023-07-28 07:35] VITALS: BP 118/90
[2023-07-28 08:34] LABS: Bun/Creatinine Ratio 28.7 (12.0-20.0); Calcium, Blood 8.8 mg/dL (8.5-10.1); Creatinine, Blood 0.49 mg/dL (0.40-1.00); Potassium, Blood 3.5 mmol/L (3.5-5.5)
--- NOTE | 2023-07-28 14:58 | NUR ---
NOTE PT AWAKE. SISTER AT BEDSIDE. INCONTENT OF BOWEL AND BLADDER. SHE HAS NOT CALLED TO USE THE BSC. TOILETING PROGRAM IN PLACE. VSS. EATING SMALL AMOUNT. MEDICATED FOR ABD PAIN X1 WITH TYLENOL. EFFECTIVE. LARGE BM THIS MORNING. UP TO SHOWER WITH 1 ASSIST. TOLERATED WELL. CONTINUE POC.
[2023-07-28 15:30] VITALS: BP 135/91
[2023-07-28 19:38] VITALS: BP 128/79
--- NOTE | 2023-07-28 20:53 | NUR ---
patient with 6/10 lower abd pain asking for something stronger than APAP for her pain. order received for Morphine 1-2mg IV q 4hours prn. Will give as soon as processed.
[2023-07-29 02:58] VITALS: BP 125/85
[2023-07-29 05:34] LABS: BASOPHILS ABSOLUTE AUTO 0.04 K/mm3 (0.00-0.23); BASOPHILS PERCENT AUTO 1 % (0-2); EOSINOPHILS ABSOLUTE AUTO 0.08 K/mm3 (0.00-0.68); EOSINOPHILS PERCENT AUTO 1 % (0-6); Hematocrit 35.3 % (33.0-51.0); Hemoglobin 12.3 g/dL (11.5-16.0); IMMATURE GRAN ABSOLUTE AUTO 0.02 K/mm3 (0.00-0.10); IMMATURE GRAN PERCENT AUTO 0 % (0-1); LYMPHOCYTES PERCENT AUTO 50 % (21-46); MONOCYTES ABSOLUTE AUTO 0.62 K/mm3 (0.16-1.47); MONOCYTES PERCENT AUTO 9 % (4-13); Mean Corpuscular HGB 28.3 pg (26.0-34.0); Mean Corpuscular HGB Conc 34.8 g/dL (31.5-36.5); Mean Corpuscular Volume 81 fL (80-100); Mean Platelet Volume 10.1 fL (9.1-12.4); NEUTROPHILS ABSOLUTE AUTO 2.58 K/mm3 (1.96-9.15); NEUTROPHILS PERCENT AUTO 38 % (41-73); Platelet Count 160 K/mm3 (150-400); RDW Coefficient Variation 12.9 % (11.7-14.2); RDW Standard Deviation 38.4 fL (35.1-46.3); Red Blood Cell Count 4.34 M/mm3 (3.80-5.20); White Blood Cell Count 6.74 K/mm3 (4.00-11.30)
[2023-07-29 06:09] LABS: Bun/Creatinine Ratio 37.5 (12.0-20.0); Calcium, Blood 8.9 mg/dL (8.5-10.1); Creatinine, Blood 0.48 mg/dL (0.40-1.00); Potassium, Blood 3.5 mmol/L (3.5-5.5)
[2023-07-29 07:46] VITALS: BP 119/77
--- NOTE | 2023-07-29 11:23 | NUR ---
NOTE: PATIENT REPORTS PAIN 9/10 TO RIGHT LOWER QUADRANT OF ABDOMEN. OFFERED TYLENOL PATIENT DECLINE PER PATIENT "TYLENOL DOES NOT WORK AT ALL." THIS RN CALLED DR. TURNER TO REPORTS PATIENT ISSUES. PER DR. TURNER SHE WILL REVIEWED PATIENT CHART AND SHE WILL PUT THE ORDER IN.
[2023-07-29 14:22] VITALS: BP 118/77
--- NOTE | 2023-07-29 17:31 | NUR ---
SHIFT SUMMARY: PATIENT A&OX3. MUMBLES IN SPEECH AND SLOW TO RESPOND. PATIENT REPORTS PAIN 8-10/10 TO RIGHT LOWER QUARANT OF ABDOMEN. MEDICATED x1 c PO TYLENOL c NO EFFECT AND MEDICATED X1 c PO OXYCODONE c GOOD EFFECT. PATIENT IS INCONTINENCE OF BOWELS AND BLADDER, KIM CARE AND ATTENDS CHANGED T/O SHIFT. EATING AND DRINKING WELL WITHOUT ANY ISSUES. DENIES N/V, CP/PRESSURE, AND DIZZINESS. RECEIVED SCHEDULED MEDS PER EMAR. VITAL SIGNS REVIEWED. BED ALARM ON FOR SAFETY. CALL LIGHT IN REACH.
[2023-07-29 20:13] VITALS: BP 133/80
--- NOTE | 2023-07-30 03:24 | NUR ---
Mariana slept all night waking only twice to be changed. shift started for the patient asking for "the IV pain medication I got last night". when this RN explained to the patient that this level of pain medication at her stage in her illness could hinder her recovery, she agreed to take the Roxycodone and APAP instead and tolerated it without difficulty. No other changes overnight.
[2023-07-30 04:42] VITALS: BP 109/70
[2023-07-30 06:33] LABS: BASOPHILS ABSOLUTE AUTO 0.02 K/mm3 (0.00-0.23); BASOPHILS PERCENT AUTO 0 % (0-2); EOSINOPHILS ABSOLUTE AUTO 0.11 K/mm3 (0.00-0.68); EOSINOPHILS PERCENT AUTO 2 % (0-6); Hemoglobin 11.6 g/dL (11.5-16.0); IMMATURE GRAN ABSOLUTE AUTO 0.03 K/mm3 (0.00-0.10); IMMATURE GRAN PERCENT AUTO 1 % (0-1); LYMPHOCYTES ABSOLUTE AUTO 3.43 K/mm3 (0.84-5.20); LYMPHOCYTES PERCENT AUTO 56 % (21-46); MONOCYTES ABSOLUTE AUTO 0.61 K/mm3 (0.16-1.47); MONOCYTES PERCENT AUTO 10 % (4-13); Mean Corpuscular HGB 28.6 pg (26.0-34.0); Mean Corpuscular HGB Conc 34.1 g/dL (31.5-36.5); Mean Corpuscular Volume 84 fL (80-100); Mean Platelet Volume 10.4 fL (9.1-12.4); NEUTROPHILS ABSOLUTE AUTO 1.96 K/mm3 (1.96-9.15); NEUTROPHILS PERCENT AUTO 32 % (41-73); Platelet Count 146 K/mm3 (150-400); RDW Standard Deviation 39.7 fL (35.1-46.3); Red Blood Cell Count 4.06 M/mm3 (3.80-5.20); White Blood Cell Count 6.16 K/mm3 (4.00-11.30)
[2023-07-30 07:13] LABS: Bun/Creatinine Ratio 44.5 (12.0-20.0); Calcium, Blood 8.9 mg/dL (8.5-10.1); Creatinine, Blood 0.49 mg/dL (0.40-1.00); Magnesium, Blood 1.4 mg/dL (1.6-2.4)
[2023-07-30 07:17] VITALS: BP 102/71
--- NOTE | 2023-07-30 07:45 | NUR ---
NOTE: RECEIVED BEDSIDE REPORT FROM NOC RN, SERGEI. PER SERGEI SHE GAVE PATIENT PO PAIN MEDS TYLENOL AND OXYCODONE TOGETHER AT AROUND 0600.
[2023-07-30 16:18] VITALS: BP 117/77
--- NOTE | 2023-07-30 17:08 | NUR ---
SHIFT SUMMARY: NO NEW ACUTE CHANGES IN PATIENT CONDITION THIS SHIFT. PATIENT IS ALERT AND ORIENTED TO SELF, PLACED AND CURRENT SITUATION. PAIN TO R LOWER QUADRANT OF ABDOMEN, WELL CONTROLLED c EMAR PO PAIN MEDS. INCONTINENCE OF BOWELS AND BLADDER, KIM CARE AND ATTENDS CHANGED T/O SHIFT. MAGNESIUM LAB RESULT THIS AM WAS 1.4, RECEIVED OT DOSE OF IV MAG SULFATE. DENIES CP/PRESSURE, SOB, N/V, AND DIZZINESS. EATING AND DRINKING WELL. RECEIVED BEDBATH AND LINEN CHANGED TODAY. VITAL SIGNS REVIEWED. PIV TO RAC SALINE LOCKED. BED ALARM ON FOR SAFETY. CALL LIGHT IN REACH.
[2023-07-30 19:52] VITALS: BP 125/72
[2023-07-31 05:15] VITALS: BP 95/61
--- NOTE | 2023-07-31 05:35 | NUR ---
SHIFT SUMMARY PT IS A&O2-3, SB TO BSC, RA, PRN PAIN MEDICATION GIVEN X2 OVERNIGHT, NO ACUTE OVERNIGHT EVENTS, CONTINUE POC
[2023-07-31 05:56] LABS: Albumin, Blood 2.7 g/dL (3.4-5.0); Albumin/Globulin Ratio 0.9 (0.8-1.8); Bilirubin, Total 0.6 mg/dL (0.1-1.0); Bun/Creatinine Ratio 49.6 (12.0-20.0); Calcium, Blood 8.7 mg/dL (8.5-10.1); Creatinine, Blood 0.5 mg/dL (0.40-1.00); Globulin, Blood 3.1 g/dL (2.2-4.0); Magnesium, Blood 1.7 mg/dL (1.6-2.4); Potassium, Blood 4.2 mmol/L (3.5-5.5); Total Protein, Blood 5.8 g/dL (6.4-8.2)
[2023-07-31 06:15] VITALS: BP 111/74
[2023-07-31 07:14] VITALS: BP 105/63
[2023-07-31 16:03] VITALS: BP 126/80
--- NOTE | 2023-07-31 18:17 | NUR ---
SHIFT SUMMARY: PATIENT ALERT AND ORIENTED TO SELF, PLACED AND CURRENT SITUATIONS. PATIENT REPORTS PAIN 11/23, REPOSITIONED c GOOD EFFECT. PATIENT AMBULATES IN THE HALLWAYS X2 c 1 ASSIST, GAITBELT AND FWW. PATIENT WAS UP IN THE CHAIR FOR ABOUT 3 HRS THIS SHIFT AND TOLERATED WELL. EXCELLENT PO INTAKE. PATIENT IS INCONTINENCE OF BOWELS AND BLADDER, KIM CARE AND ATTENDS CHANGED T/O SHIFT. RECEIVED SCHEDULED MEDS PER EMAR. VITAL SIGNS REVIEWED. PIV TO RAC SALINE LOCKED. CHAIR/BED ALARM ON FOR SAFETY. CALL LIGHT IN REACH.
[2023-07-31 20:50] VITALS: BP 120/88
[2023-08-01 04:07] VITALS: BP 146/86
--- NOTE | 2023-08-01 06:27 | NUR ---
SHIFT SUMMARY PT IS A&O2-3, SOME CONFUSION TO PLACE OVERNIGHT, 1 ASSIST WITH WALKER AND GB, PT IS TO AMBULATE X3 A DAY AND NO IV PAIN MEDS PER MD, MEDICATED FOR PAIN X1 THIS SHIFT, RA, VSS, NO ACUTE OVERNIGHT EVENTS CONTINUE POC
[2023-08-01 06:37] LABS: Bun/Creatinine Ratio 36.3 (12.0-20.0); Calcium, Blood 9.2 mg/dL (8.5-10.1); Creatinine, Blood 0.39 mg/dL (0.40-1.00); Magnesium, Blood 1.6 mg/dL (1.6-2.4); Potassium, Blood 5.8 mmol/L (3.5-5.5)
[2023-08-01 07:21] VITALS: BP 140/86
[2023-08-01 08:39] LABS: BASOPHILS ABSOLUTE AUTO 0.04 K/mm3 (0.00-0.23); BASOPHILS PERCENT AUTO 1 % (0-2); EOSINOPHILS ABSOLUTE AUTO 0.12 K/mm3 (0.00-0.68); EOSINOPHILS PERCENT AUTO 2 % (0-6); Hematocrit 39.4 % (33.0-51.0); Hemoglobin 13.2 g/dL (11.5-16.0); IMMATURE GRAN ABSOLUTE AUTO 0.03 K/mm3 (0.00-0.10); IMMATURE GRAN PERCENT AUTO 0 % (0-1); LYMPHOCYTES ABSOLUTE AUTO 2.71 K/mm3 (0.84-5.20); LYMPHOCYTES PERCENT AUTO 34 % (21-46); MONOCYTES ABSOLUTE AUTO 0.81 K/mm3 (0.16-1.47); MONOCYTES PERCENT AUTO 10 % (4-13); Mean Corpuscular HGB 28.4 pg (26.0-34.0); Mean Corpuscular HGB Conc 33.5 g/dL (31.5-36.5); Mean Corpuscular Volume 85 fL (80-100); Mean Platelet Volume 10.4 fL (9.1-12.4); NEUTROPHILS ABSOLUTE AUTO 4.34 K/mm3 (1.96-9.15); NEUTROPHILS PERCENT AUTO 54 % (41-73); Platelet Count 162 K/mm3 (150-400); RDW Coefficient Variation 13.2 % (11.7-14.2); RDW Standard Deviation 40.5 fL (35.1-46.3); Red Blood Cell Count 4.65 M/mm3 (3.80-5.20); White Blood Cell Count 8.05 K/mm3 (4.00-11.30)
--- NOTE | 2023-08-01 18:21 | NUR ---
NO ACUTE CHANGES THIS SHIFT. PATIENT WORKED WITH PT/OT, UP IN HALLS WITH FWW AND GAIT BELT. UP TO CHAIR FOR MEALS. NORCO GIVEN X1 TO TREAT RLQ ABDOMINAL PAIN, WORSE WITH MOVEMENT. VSS, ON RA. NO DIARRHEA THIS SHIFT, BUT DID REPORT NAUSEA THIS AM AND ZOFRAN GIVEN TO TREAT WITH GOOD RELIEF. INCONTINENT OF URINE. TOLERATING REGUALR DIET. AWAITING LEAD FORMER CARE PLACEMENT.
[2023-08-01 19:43] VITALS: BP 122/79
[2023-08-02 02:49] VITALS: BP 109/73
--- NOTE | 2023-08-02 06:43 | NUR ---
Shift Summary Pt c/o headache, nausea and stomach pain. Medicated per EMAR to pt's satisfaction. Pt did not sleep through most of the night, she states she is usually up at night but does sleep a little. Incontinent voids, purewick in place. PT AOx3, able to make needs known.
[2023-08-02 08:04] VITALS: BP 112/75
--- NOTE | 2023-08-02 14:25 | NUR ---
PT LEFT AT 1420 FOR DC IN STABLE CONDITION VIA TAXI. TAXI TO BRING PT TO HER SISTER'S. PT LEFT WITH ALL BELONGINGS. RN DISCUSSED ALL DC PAPERWORK WITH PT AND HER SISTER.
== END 2023-08-02 14:15 | disposition home or self-care (01) ==
LOC: ER 16:44 → MEDS 16:45 → ENPENDDIS 08-02 10:38 → MEDS 08-02 14:15
PROVIDERS: Emergency Medicine; Family Medicine; Student in an Organized Health Care Education/Training Program; ADMIT Internal Medicine
DX: K57.32 Diverticulitis of large intestine without perforation or abscess without bleeding (principal); I10 Essential (primary) hypertension; E87.6 Hypokalemia; E83.42 Hypomagnesemia; N39.0 Urinary tract infection, site not specified; K21.9 Gastro-esophageal reflux disease without esophagitis; F41.9 Anxiety disorder, unspecified; Z86.73 Personal history of transient ischemic attack (TIA), and cerebral infarction without residual deficits; F31.9 Bipolar disorder, unspecified; G40.909 Epilepsy, unspecified, not intractable, without status epilepticus; Z72.0 Tobacco use; Z88.5 Allergy status to narcotic agent; Z88.2 Allergy status to sulfonamides; Z88.0 Allergy status to penicillin; Z88.8 Allergy status to other drugs, medicaments and biological substances
CPT/HCPCS: 36415; 74177; 80048; 80053; 81001; 83605; 83690; 83735; 85025; 87086; 93005; 93010; 94640; 94664; 94760; 96365-59; 96366; 96367; 96372; 96375; 96376; 97165; 97530; 97535; 99285-25; A9270; G0378; J1650; J1956; J2270; J2405; J3010; J3475; J7030; Q9967

== ENCOUNTER 2023-08-04 11:34 | Emergency (ER) | payer OTHER ==
[~2023-08-04] VITALS: Ht 154.9 cm; Wt 63.5 kg
[2023-08-04 12:24] LABS: BASOPHILS ABSOLUTE AUTO 0.02 K/mm3 (0.00-0.23); BASOPHILS PERCENT AUTO 0 % (0-2); EOSINOPHILS ABSOLUTE AUTO 0.08 K/mm3 (0.00-0.68); EOSINOPHILS PERCENT AUTO 1 % (0-6); Hematocrit 39.4 % (33.0-51.0); Hemoglobin 13.5 g/dL (11.5-16.0); IMMATURE GRAN ABSOLUTE AUTO 0.04 K/mm3 (0.00-0.10); IMMATURE GRAN PERCENT AUTO 0 % (0-1); LYMPHOCYTES ABSOLUTE AUTO 2.41 K/mm3 (0.84-5.20); LYMPHOCYTES PERCENT AUTO 26 % (21-46); MONOCYTES ABSOLUTE AUTO 0.93 K/mm3 (0.16-1.47); MONOCYTES PERCENT AUTO 10 % (4-13); Mean Corpuscular HGB 28.8 pg (26.0-34.0); Mean Corpuscular HGB Conc 34.3 g/dL (31.5-36.5); Mean Corpuscular Volume 84 fL (80-100); Mean Platelet Volume 9.9 fL (9.1-12.4); NEUTROPHILS ABSOLUTE AUTO 5.95 K/mm3 (1.96-9.15); NEUTROPHILS PERCENT AUTO 63 % (41-73); Platelet Count 201 K/mm3 (150-400); RDW Coefficient Variation 13.7 % (11.7-14.2); RDW Standard Deviation 41.9 fL (35.1-46.3); Red Blood Cell Count 4.69 M/mm3 (3.80-5.20); White Blood Cell Count 9.43 K/mm3 (4.00-11.30)
[2023-08-04 12:45] LABS: Albumin, Blood 4.1 g/dL (3.4-5.0); Albumin/Globulin Ratio 0.9 (0.8-1.8); Bilirubin, Total 0.6 mg/dL (0.1-1.0); Bun/Creatinine Ratio 48.6 (12.0-20.0); Creatinine, Blood 0.51 mg/dL (0.40-1.00); Globulin, Blood 4.6 g/dL (2.2-4.0); Potassium, Blood 4.4 mmol/L (3.5-5.5); Total Protein, Blood 8.7 g/dL (6.4-8.2)
[2023-08-04 15:48] LABS: Source, Urine Clean Catch
[2023-08-04 16:00] LABS: Appearance, Urine Clear (Clear); Bilirubin, Urine Neg (Neg); Blood, Urine 2+ (Neg); Color, Urine Yellow (P-Yellow); Glucose Qualitative, Urine Neg (Neg); Ketones, Urine Neg (Neg); Leukocyte Esterase, Urine Neg (Neg); Nitrite, Urine Neg (Neg); Protein, Urine 1+ (Neg); Specific Gravity, Urine 1.015 (1.003-1.022); Urobilinogen, Urine 1+ (Normal); pH, Urine 6.5 (5.0-8.0)
[2023-08-04 16:28] LABS: White Blood Cells, Urine 0-2 /hpf (0-5)
[2023-08-04 16:30] LABS: Bacteria Few /hpf; Squamous Epithelial Cells Few /hpf (Few)
[2023-08-04] MEDS ORDERED: ONDA4ODT MM (17:37)
[2023-08-04] MEDS ORDERED: DICY20 PO (17:37)
[2023-08-04 18:00] VITALS: BP 138/89
== END 2023-08-04 18:12 | disposition home or self-care (01) ==
LOC: ER 11:34
PROVIDERS: Physician Assistant
DX: R10.31 Right lower quadrant pain (principal); R11.2 Nausea with vomiting, unspecified; Z88.0 Allergy status to penicillin; Z88.6 Allergy status to analgesic agent; Z88.1 Allergy status to other antibiotic agents; Z88.2 Allergy status to sulfonamides; Z88.5 Allergy status to narcotic agent; Z91.030 Bee allergy status; Z79.899 Other long term (current) drug therapy; J44.9 Chronic obstructive pulmonary disease, unspecified; G40.909 Epilepsy, unspecified, not intractable, without status epilepticus; I10 Essential (primary) hypertension; G43.909 Migraine, unspecified, not intractable, without status migrainosus; F43.10 Post-traumatic stress disorder, unspecified; K21.9 Gastro-esophageal reflux disease without esophagitis; E78.5 Hyperlipidemia, unspecified; F17.210 Nicotine dependence, cigarettes, uncomplicated
CPT/HCPCS: 80053; 81001; 83605; 83690; 85025; 96372-59; 96374; 96375; 99284-25; A9270; J0500; J1200; J2765; J7030

== ENCOUNTER 2023-08-12 18:48 | Emergency (ER) | payer OTHER ==
[~2023-08-12] VITALS: Ht 154.9 cm; Wt 63.5 kg
[~2023-08-12 18:48] MED LIST changes: +Aspir 8181 MG PO; +DICY20 PO
[2023-08-12 18:50] VITALS: BP 157/110
[2023-08-12 21:50] LABS: BASOPHILS ABSOLUTE AUTO 0.03 K/mm3 (0.00-0.23); BASOPHILS PERCENT AUTO 0 % (0-2); EOSINOPHILS ABSOLUTE AUTO 0.19 K/mm3 (0.00-0.68); EOSINOPHILS PERCENT AUTO 2 % (0-6); Hematocrit 35.7 % (33.0-51.0); Hemoglobin 12.7 g/dL (11.5-16.0); IMMATURE GRAN ABSOLUTE AUTO 0.04 K/mm3 (0.00-0.10); IMMATURE GRAN PERCENT AUTO 0 % (0-1); LYMPHOCYTES ABSOLUTE AUTO 3.42 K/mm3 (0.84-5.20); LYMPHOCYTES PERCENT AUTO 37 % (21-46); MONOCYTES ABSOLUTE AUTO 0.66 K/mm3 (0.16-1.47); MONOCYTES PERCENT AUTO 7 % (4-13); Mean Corpuscular HGB 30.1 pg (26.0-34.0); Mean Corpuscular HGB Conc 35.6 g/dL (31.5-36.5); Mean Corpuscular Volume 85 fL (80-100); Mean Platelet Volume 10.3 fL (9.1-12.4); NEUTROPHILS ABSOLUTE AUTO 4.85 K/mm3 (1.96-9.15); NEUTROPHILS PERCENT AUTO 53 % (41-73); Platelet Count 356 K/mm3 (150-400); RDW Standard Deviation 43.2 fL (35.1-46.3); Red Blood Cell Count 4.22 M/mm3 (3.80-5.20); White Blood Cell Count 9.19 K/mm3 (4.00-11.30)
[2023-08-12 22:03] LABS: Albumin, Blood 3.6 g/dL (3.4-5.0); Albumin/Globulin Ratio 0.8 (0.8-1.8); Bilirubin, Total 0.3 mg/dL (0.1-1.0); Bun/Creatinine Ratio 12.2 (12.0-20.0); Calcium, Blood 9.9 mg/dL (8.5-10.1); Creatinine, Blood 0.49 mg/dL (0.40-1.00); Globulin, Blood 4.6 g/dL (2.2-4.0); Potassium, Blood 3.7 mmol/L (3.5-5.5)
[2023-08-12 22:31] LABS: Total Protein, Blood 8.2 g/dL (6.4-8.2)
== END 2023-08-12 22:09 | disposition home or self-care (01) ==
LOC: ER 18:48
PROVIDERS: Physician Assistant
DX: G89.29 Other chronic pain (principal); R10.9 Unspecified abdominal pain; Z88.0 Allergy status to penicillin; Z88.6 Allergy status to analgesic agent; Z88.1 Allergy status to other antibiotic agents; Z88.2 Allergy status to sulfonamides; Z88.5 Allergy status to narcotic agent; Z91.030 Bee allergy status; Z88.8 Allergy status to other drugs, medicaments and biological substances; Z79.51 Long term (current) use of inhaled steroids; Z79.82 Long term (current) use of aspirin; Z79.899 Other long term (current) drug therapy; J44.9 Chronic obstructive pulmonary disease, unspecified; I10 Essential (primary) hypertension; G43.909 Migraine, unspecified, not intractable, without status migrainosus; Z86.73 Personal history of transient ischemic attack (TIA), and cerebral infarction without residual deficits; F17.210 Nicotine dependence, cigarettes, uncomplicated
CPT/HCPCS: 80053; 85025; 96374; 99283-25; A9270; J1885

== ENCOUNTER 2023-08-16 10:28 | Emergency (ER) | payer OTHER ==
[~2023-08-16] VITALS: Ht 154.9 cm; Wt 63.5 kg
[2023-08-16 10:36] VITALS: BP 129/93
[2023-08-16 10:57] LABS: BASOPHILS ABSOLUTE AUTO 0.03 K/mm3 (0.00-0.23); BASOPHILS PERCENT AUTO 0 % (0-2); EOSINOPHILS ABSOLUTE AUTO 0.06 K/mm3 (0.00-0.68); EOSINOPHILS PERCENT AUTO 1 % (0-6); Hematocrit 35.6 % (33.0-51.0); Hemoglobin 12.1 g/dL (11.5-16.0); IMMATURE GRAN ABSOLUTE AUTO 0.05 K/mm3 (0.00-0.10); IMMATURE GRAN PERCENT AUTO 1 % (0-1); LYMPHOCYTES ABSOLUTE AUTO 2.56 K/mm3 (0.84-5.20); LYMPHOCYTES PERCENT AUTO 32 % (21-46); MONOCYTES PERCENT AUTO 8 % (4-13); Mean Corpuscular HGB 28.6 pg (26.0-34.0); Mean Corpuscular Volume 84 fL (80-100); NEUTROPHILS ABSOLUTE AUTO 4.73 K/mm3 (1.96-9.15); NEUTROPHILS PERCENT AUTO 59 % (41-73); Platelet Count 322 K/mm3 (150-400); RDW Coefficient Variation 14.1 % (11.7-14.2); Red Blood Cell Count 4.23 M/mm3 (3.80-5.20); White Blood Cell Count 8.03 K/mm3 (4.00-11.30)
[2023-08-16 11:20] LABS: Albumin, Blood 3.7 g/dL (3.4-5.0); Albumin/Globulin Ratio 0.9 (0.8-1.8); Bilirubin, Total 0.5 mg/dL (0.1-1.0); Bun/Creatinine Ratio 19.8 (12.0-20.0); Calcium, Blood 9.5 mg/dL (8.5-10.1); Creatinine, Blood 0.5 mg/dL (0.40-1.00); Globulin, Blood 4.1 g/dL (2.2-4.0); Potassium, Blood 3.6 mmol/L (3.5-5.5); Total Protein, Blood 7.8 g/dL (6.4-8.2)
[2023-08-16] MEDS ORDERED: DICY20 PO (14:13)
[2023-08-16] MEDS ORDERED: LEVFLO500 PO (14:13)
== END 2023-08-16 14:25 | disposition home or self-care (01) ==
LOC: ER 10:28
PROVIDERS: Physician Assistant
DX: R10.10 Upper abdominal pain, unspecified (principal); F17.210 Nicotine dependence, cigarettes, uncomplicated; Z79.899 Other long term (current) drug therapy; Z79.82 Long term (current) use of aspirin
CPT/HCPCS: 80053; 83690; 85025; 99284

== ENCOUNTER 2023-08-20 10:40 | Emergency (ER) | payer OTHER ==
[~2023-08-20] VITALS: Ht 154.9 cm; Wt 63.5 kg
[~2023-08-20 10:40] MED LIST changes: +LEVFLO500 PO
[2023-08-20 10:50] VITALS: BP 127/90
[2023-08-20 12:10] LABS: BASOPHILS ABSOLUTE AUTO 0.04 K/mm3 (0.00-0.23); BASOPHILS PERCENT AUTO 0 % (0-2); EOSINOPHILS ABSOLUTE AUTO 0.02 K/mm3 (0.00-0.68); EOSINOPHILS PERCENT AUTO 0 % (0-6); Hematocrit 36.8 % (33.0-51.0); Hemoglobin 12.6 g/dL (11.5-16.0); IMMATURE GRAN ABSOLUTE AUTO 0.03 K/mm3 (0.00-0.10); IMMATURE GRAN PERCENT AUTO 0 % (0-1); LYMPHOCYTES ABSOLUTE AUTO 1.73 K/mm3 (0.84-5.20); LYMPHOCYTES PERCENT AUTO 19 % (21-46); MONOCYTES ABSOLUTE AUTO 0.54 K/mm3 (0.16-1.47); MONOCYTES PERCENT AUTO 6 % (4-13); Mean Corpuscular HGB 29.1 pg (26.0-34.0); Mean Corpuscular HGB Conc 34.2 g/dL (31.5-36.5); Mean Corpuscular Volume 85 fL (80-100); Mean Platelet Volume 9.8 fL (9.1-12.4); NEUTROPHILS ABSOLUTE AUTO 6.62 K/mm3 (1.96-9.15); NEUTROPHILS PERCENT AUTO 74 % (41-73); Platelet Count 283 K/mm3 (150-400); RDW Coefficient Variation 14.3 % (11.7-14.2); RDW Standard Deviation 43.6 fL (35.1-46.3); Red Blood Cell Count 4.33 M/mm3 (3.80-5.20); White Blood Cell Count 8.98 K/mm3 (4.00-11.30)
[2023-08-20 12:22] LABS: Albumin, Blood 3.6 g/dL (3.4-5.0); Albumin/Globulin Ratio 0.8 (0.8-1.8); Bilirubin, Total 1.1 mg/dL (0.1-1.0); Bun/Creatinine Ratio 26.1 (12.0-20.0); Calcium, Blood 9.3 mg/dL (8.5-10.1); Creatinine, Blood 0.46 mg/dL (0.40-1.00); Globulin, Blood 4.4 g/dL (2.2-4.0); Potassium, Blood 3.3 mmol/L (3.5-5.5)
[2023-08-21] MEDS ORDERED: Flagyl500 MG PO (17:02)
[2023-08-21] MEDS ORDERED: Norco 5-325 Ta1 EACH PO (17:02)
[2023-08-21] MEDS ORDERED: Cipro500 MG PO (17:02)
== END 2023-08-20 13:32 | disposition left against medical advice (07) ==
LOC: ER 10:40
PROVIDERS: Emergency Medicine
DX: R10.33 Periumbilical pain (principal); Z88.0 Allergy status to penicillin; Z88.8 Allergy status to other drugs, medicaments and biological substances; Z88.6 Allergy status to analgesic agent; Z88.1 Allergy status to other antibiotic agents; Z91.030 Bee allergy status; Z88.2 Allergy status to sulfonamides; Z88.5 Allergy status to narcotic agent; Z79.899 Other long term (current) drug therapy; Z79.82 Long term (current) use of aspirin; J44.9 Chronic obstructive pulmonary disease, unspecified; I10 Essential (primary) hypertension; F17.210 Nicotine dependence, cigarettes, uncomplicated
CPT/HCPCS: 74022; 80053; 83690; 85025; 96372; 99284-25; J0500; J1790

== ENCOUNTER 2023-08-21 14:59 | Emergency (ER) | payer OTHER ==
[~2023-08-21] VITALS: Ht 154.9 cm; Wt 63.5 kg
[2023-08-21 15:14] VITALS: BP 143/101
[2023-08-21 15:38] LABS: BASOPHILS ABSOLUTE AUTO 0.03 K/mm3 (0.00-0.23); BASOPHILS PERCENT AUTO 0 % (0-2); EOSINOPHILS ABSOLUTE AUTO 0.03 K/mm3 (0.00-0.68); EOSINOPHILS PERCENT AUTO 0 % (0-6); Hematocrit 37.8 % (33.0-51.0); IMMATURE GRAN ABSOLUTE AUTO 0.04 K/mm3 (0.00-0.10); IMMATURE GRAN PERCENT AUTO 0 % (0-1); LYMPHOCYTES ABSOLUTE AUTO 2.93 K/mm3 (0.84-5.20); LYMPHOCYTES PERCENT AUTO 32 % (21-46); MONOCYTES ABSOLUTE AUTO 0.69 K/mm3 (0.16-1.47); MONOCYTES PERCENT AUTO 8 % (4-13); Mean Corpuscular HGB 28.8 pg (26.0-34.0); Mean Corpuscular HGB Conc 34.4 g/dL (31.5-36.5); Mean Corpuscular Volume 84 fL (80-100); Mean Platelet Volume 9.6 fL (9.1-12.4); NEUTROPHILS ABSOLUTE AUTO 5.36 K/mm3 (1.96-9.15); NEUTROPHILS PERCENT AUTO 59 % (41-73); Platelet Count 269 K/mm3 (150-400); RDW Coefficient Variation 14.6 % (11.7-14.2); RDW Standard Deviation 44.4 fL (35.1-46.3); Red Blood Cell Count 4.51 M/mm3 (3.80-5.20); White Blood Cell Count 9.08 K/mm3 (4.00-11.30)
[2023-08-21 15:53] LABS: Albumin, Blood 3.8 g/dL (3.4-5.0); Albumin/Globulin Ratio 0.9 (0.8-1.8); Bilirubin, Total 0.9 mg/dL (0.1-1.0); Bun/Creatinine Ratio 20.2 (12.0-20.0); Calcium, Blood 9.6 mg/dL (8.5-10.1); Creatinine, Blood 0.49 mg/dL (0.40-1.00); Globulin, Blood 4.3 g/dL (2.2-4.0); Potassium, Blood 2.9 mmol/L (3.5-5.5); Total Protein, Blood 8.1 g/dL (6.4-8.2)
[2023-08-21] MEDS ORDERED: Flagyl500 MG PO (17:02)
[2023-08-21] MEDS ORDERED: Cipro500 MG PO (17:02)
[2023-08-21] MEDS ORDERED: Norco 5-325 Ta1 EACH PO (17:02)
== END 2023-08-21 17:15 | disposition home or self-care (01) ==
LOC: ER 14:59
PROVIDERS: Student in an Organized Health Care Education/Training Program
DX: K57.92 Diverticulitis of intestine, part unspecified, without perforation or abscess without bleeding (principal); J44.9 Chronic obstructive pulmonary disease, unspecified; I10 Essential (primary) hypertension; E87.6 Hypokalemia; F17.210 Nicotine dependence, cigarettes, uncomplicated; Z79.82 Long term (current) use of aspirin; Z79.899 Other long term (current) drug therapy; Z88.0 Allergy status to penicillin; Z88.8 Allergy status to other drugs, medicaments and biological substances; Z88.2 Allergy status to sulfonamides; Z88.5 Allergy status to narcotic agent; Z91.030 Bee allergy status; Z86.73 Personal history of transient ischemic attack (TIA), and cerebral infarction without residual deficits
CPT/HCPCS: 74177; 80053; 83690; 85025; 99284-25; A9270; Q9967

== ENCOUNTER 2023-08-27 11:38 | Emergency (ER) | payer OTHER ==
[~2023-08-27] VITALS: Ht 154.9 cm; Wt 63.5 kg
[~2023-08-27 11:38] MED LIST changes: +Cipro500 MG PO; +Flagyl500 MG PO; +Norco 5-325 Ta1 EACH PO
[2023-08-27 12:02] VITALS: BP 156/113
== END 2023-08-27 14:52 | disposition home or self-care (01) ==
LOC: ER 11:38
DX: R10.9 Unspecified abdominal pain (principal); M54.89 Other dorsalgia; G89.29 Other chronic pain; F31.9 Bipolar disorder, unspecified; J44.9 Chronic obstructive pulmonary disease, unspecified; G40.909 Epilepsy, unspecified, not intractable, without status epilepticus; I10 Essential (primary) hypertension; F17.210 Nicotine dependence, cigarettes, uncomplicated; F43.10 Post-traumatic stress disorder, unspecified; E78.5 Hyperlipidemia, unspecified; F40.01 Agoraphobia with panic disorder; Z86.73 Personal history of transient ischemic attack (TIA), and cerebral infarction without residual deficits; Z79.899 Other long term (current) drug therapy; Z79.82 Long term (current) use of aspirin; Z88.0 Allergy status to penicillin; Z88.1 Allergy status to other antibiotic agents; Z88.8 Allergy status to other drugs, medicaments and biological substances; Z88.5 Allergy status to narcotic agent
CPT/HCPCS: 96372; 99283; A9270; J1885

== ENCOUNTER 2023-08-31 14:18 | Emergency (ER) | payer OTHER ==
[~2023-08-31] VITALS: Ht 154.9 cm; Wt 56.7 kg
[2023-08-31 15:28] VITALS: BP 177/118
[2023-08-31 15:53] LABS: BASOPHILS ABSOLUTE AUTO 0.05 K/mm3 (0.00-0.23); BASOPHILS PERCENT AUTO 1 % (0-2); EOSINOPHILS ABSOLUTE AUTO 0.06 K/mm3 (0.00-0.68); EOSINOPHILS PERCENT AUTO 1 % (0-6); Hematocrit 41.2 % (33.0-51.0); Hemoglobin 14.1 g/dL (11.5-16.0); IMMATURE GRAN ABSOLUTE AUTO 0.01 K/mm3 (0.00-0.10); IMMATURE GRAN PERCENT AUTO 0 % (0-1); LYMPHOCYTES ABSOLUTE AUTO 3.44 K/mm3 (0.84-5.20); LYMPHOCYTES PERCENT AUTO 38 % (21-46); MONOCYTES ABSOLUTE AUTO 0.55 K/mm3 (0.16-1.47); MONOCYTES PERCENT AUTO 6 % (4-13); Mean Corpuscular HGB 28.8 pg (26.0-34.0); Mean Corpuscular HGB Conc 34.2 g/dL (31.5-36.5); Mean Corpuscular Volume 84 fL (80-100); Mean Platelet Volume 9.8 fL (9.1-12.4); NEUTROPHILS ABSOLUTE AUTO 4.84 K/mm3 (1.96-9.15); NEUTROPHILS PERCENT AUTO 54 % (41-73); Platelet Count 275 K/mm3 (150-400); RDW Coefficient Variation 14.3 % (11.7-14.2); RDW Standard Deviation 43.7 fL (35.1-46.3); Red Blood Cell Count 4.89 M/mm3 (3.80-5.20); White Blood Cell Count 8.95 K/mm3 (4.00-11.30)
[2023-08-31 16:15] LABS: Ethanol (Alcohol), Blood, Med <3 mg/dL; Salicylate 3.5 mg/dL (2.8-20.0)
[2023-08-31 16:27] LABS: Alanine Aminotransfer (ALT/SGP 41 U/L (12-78); Albumin, Blood 3.8 g/dL (3.4-5.0); Alk Phos 213 U/L (50-136); Anion Gap 6 mmol/L (6-16); Aspartate Aminotrans (AST/SGOT 34 U/L (12-37); Bilirubin, Total 0.6 mg/dL (0.1-1.0); Blood Urea Nitrogen 4 mg/dL (8-24); Bun/Creatinine Ratio 7.4 (12.0-20.0); CO2, Blood 27 mmol/L (21-32); Calcium, Blood 9.6 mg/dL (8.5-10.1); Chloride, Blood 107 mmol/L (98-108); Creatinine, Blood 0.54 mg/dL (0.40-1.00); Globulin, Blood 3.7 g/dL (2.2-4.0); Glomerular Filtration Rate 109 (60-); Glucose, Blood 109 mg/dL (70-99); Potassium, Blood 2.9 mmol/L (3.5-5.5); Sodium, Blood 140 mmol/L (136-145); Total Protein, Blood 7.5 g/dL (6.4-8.2)
[2023-08-31 16:33] LABS: Acetaminophen, Random <2.0 ug/mL (10.0-30.0)
[2023-08-31 16:52] LABS: Source, Urine Clean Catch
[2023-08-31 16:59] LABS: Appearance, Urine Clear (Clear); Bilirubin, Urine Neg (Neg); Blood, Urine 1+ (Neg); Color, Urine Yellow (P-Yellow); Glucose Qualitative, Urine Neg (Neg); Ketones, Urine Neg (Neg); Leukocyte Esterase, Urine Neg (Neg); Nitrite, Urine Neg (Neg); Protein, Urine Neg (Neg); Urobilinogen, Urine 1+ (Normal)
[2023-08-31 17:22] LABS: U Amphetamine Screen Not Detected; U Barbituate Screen Not Detected; U Benzodiazapine Screen Not Detected; U Buprenorphine Screen Not Detected; U Cannabinoids Screen Not Detected; U Cocaine Screen Not Detected; U Methadone Screen Not Detected; U Methamphetamine Screen Not Detected; U Opiates Screen Not Detected; U Oxycodone Screen Not Detected; U Phencyclidine Screen Not Detected; U Propoxyphene Screen Not Detected
[2023-08-31 17:39] LABS: Bacteria Few /hpf; Squamous Epithelial Cells Few /hpf (Few); White Blood Cells, Urine 0-2 /hpf (0-5)
== END 2023-08-31 19:45 | disposition home or self-care (01) ==
LOC: ER 14:18
PROVIDERS: Student in an Organized Health Care Education/Training Program
DX: R45.851 Suicidal ideations (principal); R10.30 Lower abdominal pain, unspecified; E87.6 Hypokalemia; R00.0 Tachycardia, unspecified; F31.9 Bipolar disorder, unspecified; J44.9 Chronic obstructive pulmonary disease, unspecified; I10 Essential (primary) hypertension; F17.210 Nicotine dependence, cigarettes, uncomplicated; Z88.0 Allergy status to penicillin; Z88.1 Allergy status to other antibiotic agents; Z88.2 Allergy status to sulfonamides; Z88.6 Allergy status to analgesic agent; Z91.030 Bee allergy status; Z79.899 Other long term (current) drug therapy; Z79.82 Long term (current) use of aspirin
CPT/HCPCS: 80053; 81001; 81025; 83690; 83735; 85025; 93005; 93010; 96372; 99284-25; A9270; G0480; J0500; J3480

== ENCOUNTER → 2023-09-01 | Outpatient (CLI) | payer OTHER ==
[~2023-09-01] MED LIST changes: +CIPRO500 M1 PO; +Robaxin750 MG PO
[2023-09-02 20:09] LABS: Adenovirus F 40/41 Not Detected (NOT DETECT); Astrovirus Not Detected (NOT DETECT); Campylobacter Sp Not Detected (NOT DETECT); Cryptosporidium Not Detected (NOT DETECT); Cyclospora Cayetanensis Not Detected (NOT DETECT); E. Coli O157 Not Detected (NOT DETECT); Entamoeba Histolytica Not Detected (NOT DETECT); Enteroaggregative E. coli-EAEC Not Detected (NOT DETECT); Enteropathogenic E. coli-EPEC Not Detected (NOT DETECT); Enterotoxigenic E. coli-ETEC Not Detected (NOT DETECT); Giardia Lamblia Not Detected (NOT DETECT); Norovirus GI/GII Not Detected (NOT DETECT); Plesiomonas Shigelloides Not Detected (NOT DETECT); Rotavirus A Not Detected (NOT DETECT); Salmonella Sp Not Detected (NOT DETECT); Sapovirus Not Detected (NOT DETECT); Shiga Toxin-prod E. coli-STEC Not Detected (NOT DETECT); Shigella/Enteroin E. coli-EIEC Not Detected (NOT DETECT); Vibrio Cholerae Not Detected (NOT DETECT); Vibrio Sp Not Detected (NOT DETECT); Yersinia Enterocolitica Not Detected (NOT DETECT)
== END | disposition home or self-care (01) ==
LOC: LAB 16:52 → LAB SHORT 16:52
PROVIDERS: Family Medicine
DX: R10.30 Lower abdominal pain, unspecified (principal)
CPT/HCPCS: 87324; 87507

== ENCOUNTER 2023-09-03 21:29 | Emergency (ER) | payer OTHER ==
[~2023-09-03] VITALS: Ht 154.9 cm; Wt 54.4 kg
[~2023-09-03 21:29] MED LIST changes: -CIPRO500 M1 PO; -Robaxin750 MG PO
[2023-09-03 22:58] LABS: BASOPHILS ABSOLUTE AUTO 0.05 K/mm3 (0.00-0.23); BASOPHILS PERCENT AUTO 1 % (0-2); EOSINOPHILS ABSOLUTE AUTO 0.11 K/mm3 (0.00-0.68); EOSINOPHILS PERCENT AUTO 1 % (0-6); Hematocrit 42.9 % (33.0-51.0); Hemoglobin 14.9 g/dL (11.5-16.0); IMMATURE GRAN ABSOLUTE AUTO 0.03 K/mm3 (0.00-0.10); IMMATURE GRAN PERCENT AUTO 0 % (0-1); LYMPHOCYTES ABSOLUTE AUTO 3.69 K/mm3 (0.84-5.20); LYMPHOCYTES PERCENT AUTO 37 % (21-46); MONOCYTES ABSOLUTE AUTO 0.78 K/mm3 (0.16-1.47); MONOCYTES PERCENT AUTO 8 % (4-13); Mean Corpuscular HGB 28.9 pg (26.0-34.0); Mean Corpuscular HGB Conc 34.7 g/dL (31.5-36.5); Mean Corpuscular Volume 83 fL (80-100); Mean Platelet Volume 9.4 fL (9.1-12.4); NEUTROPHILS ABSOLUTE AUTO 5.29 K/mm3 (1.96-9.15); NEUTROPHILS PERCENT AUTO 53 % (41-73); Platelet Count 303 K/mm3 (150-400); RDW Coefficient Variation 13.9 % (11.7-14.2); RDW Standard Deviation 42.5 fL (35.1-46.3); Red Blood Cell Count 5.15 M/mm3 (3.80-5.20); White Blood Cell Count 9.95 K/mm3 (4.00-11.30)
[2023-09-03 23:18] LABS: Albumin, Blood 3.7 g/dL (3.4-5.0); Albumin/Globulin Ratio 0.9 (0.8-1.8); Bilirubin, Total 0.5 mg/dL (0.1-1.0); Bun/Creatinine Ratio 4.4 (12.0-20.0); Calcium, Blood 9.4 mg/dL (8.5-10.1); Creatinine, Blood 0.46 mg/dL (0.40-1.00); Globulin, Blood 4.3 g/dL (2.2-4.0); Potassium, Blood 2.9 mmol/L (3.5-5.5)
[2023-09-04 00:44] LABS: Source, Urine Clean Catch
[2023-09-04 00:48] LABS: Bilirubin, Urine Neg (Neg); Blood, Urine Neg (Neg); Glucose Qualitative, Urine Neg (Neg); Ketones, Urine Neg (Neg); Leukocyte Esterase, Urine Neg (Neg); Nitrite, Urine Neg (Neg); Protein, Urine Neg (Neg); Urobilinogen, Urine NORM (Normal); pH, Urine 6.5 (5.0-8.0)
[2023-09-04 00:52] LABS: Appearance, Urine Clear (Clear); Color, Urine Yellow (P-Yellow)
[2023-09-04] MEDS ORDERED: Robaxin750 MG PO (01:45)
[2023-09-04] MEDS ORDERED: CIPRO500 M1 PO (05:39)
[2023-09-04] MEDS ORDERED: METR500 PO (05:39)
[2023-09-04 05:50] VITALS: BP 156/129
== END 2023-09-04 05:55 | disposition home or self-care (01) ==
LOC: ER 21:29
PROVIDERS: Emergency Medicine
DX: R10.31 Right lower quadrant pain (principal); R10.32 Left lower quadrant pain; Z88.0 Allergy status to penicillin; Z88.1 Allergy status to other antibiotic agents; Z88.6 Allergy status to analgesic agent; Z88.2 Allergy status to sulfonamides; Z88.5 Allergy status to narcotic agent; Z91.030 Bee allergy status; Z79.899 Other long term (current) drug therapy; Z79.82 Long term (current) use of aspirin; J44.9 Chronic obstructive pulmonary disease, unspecified; G47.30 Sleep apnea, unspecified; I10 Essential (primary) hypertension; G43.909 Migraine, unspecified, not intractable, without status migrainosus; F43.10 Post-traumatic stress disorder, unspecified; K21.9 Gastro-esophageal reflux disease without esophagitis; E78.5 Hyperlipidemia, unspecified; F17.210 Nicotine dependence, cigarettes, uncomplicated
CPT/HCPCS: 74177; 80053; 81003; 83880; 85025; 96361; 96374-59; 99284-25; A9270; J1790; J7120; Q9967

== ENCOUNTER 2023-09-19 11:36 | Emergency (ER) | payer OTHER ==
[~2023-09-19] VITALS: Ht 162.6 cm; Wt 56.7 kg
[~2023-09-19 11:36] MED LIST changes: +CIPRO500 M1 PO; +Robaxin750 MG PO
[2023-09-19 12:26] VITALS: BP 152/108
== END 2023-09-19 14:44 | disposition home or self-care (01) ==
LOC: ER 11:36
DX: Z04.89 Encounter for examination and observation for other specified reasons (principal); J44.9 Chronic obstructive pulmonary disease, unspecified; I10 Essential (primary) hypertension; Z59.00 Homelessness unspecified; Z88.0 Allergy status to penicillin; Z88.2 Allergy status to sulfonamides; Z88.5 Allergy status to narcotic agent; Z88.8 Allergy status to other drugs, medicaments and biological substances; Z79.899 Other long term (current) drug therapy; Z79.82 Long term (current) use of aspirin; Z86.73 Personal history of transient ischemic attack (TIA), and cerebral infarction without residual deficits; F17.210 Nicotine dependence, cigarettes, uncomplicated
CPT/HCPCS: 99282

== ENCOUNTER → 2023-10-04 | Outpatient (CLI) | payer OTHER ==
[2023-10-05 10:57] LABS: Source, Urine Clean Catch
[2023-10-05 11:42] LABS: Bilirubin, Urine Neg (Neg); Blood, Urine Neg (Neg); Color, Urine Yellow (P-Yellow); Glucose Qualitative, Urine 4+ (Neg); Ketones, Urine Neg (Neg); Leukocyte Esterase, Urine 1+ (Neg); Nitrite, Urine Neg (Neg); Protein, Urine Neg (Neg); Specific Gravity, Urine 1.015 (1.003-1.022); Urobilinogen, Urine NORM (Normal)
[2023-10-05 11:58] LABS: Appearance, Urine Hazy (Clear)
[2023-10-05 12:02] LABS: Bacteria Few /hpf; Red Blood Cells, Urine 0-2 /hpf (0-2); Squamous Epithelial Cells Mod /hpf (Few); Yeast/Fungi Urine Few /hpf
[2023-10-05 12:03] LABS: Transitional Epithelial Cells Rare /hpf (0-Rare)
== END | disposition home or self-care (01) ==
LOC: LAB 17:45 → LAB SHORT 17:45
PROVIDERS: Family Medicine
DX: N39.0 Urinary tract infection, site not specified (principal)
CPT/HCPCS: 81001; 87086

== ENCOUNTER → 2024-02-28 | Outpatient (CLI) | payer OTHER ==
[2024-02-29 20:10] LABS: Bacterial Vaginosis PCR Negative (NEGATIVE); Candida Group, PCR NOT DETECTED (NOT DETECT); Candida glabrata-krusei, PCR NOT DETECTED (NOT DETECT)
== END | disposition home or self-care (01) ==
LOC: LAB SHORT 10:15 → LAB 10:15
PROVIDERS: Family Medicine
DX: N89.8 Other specified noninflammatory disorders of vagina (principal); R30.0 Dysuria; R10.2 Pelvic and perineal pain
CPT/HCPCS: 87481; 87661; 87801

== ENCOUNTER → 2024-05-03 | Outpatient (CLI) | payer OTHER ==
[2024-05-03 17:42] LABS: Source, Urine Voided
[2024-05-03 18:46] LABS: Bilirubin, Urine Neg (Neg); Blood, Urine 2+ (Neg); Glucose Qualitative, Urine 4+ (Neg); Ketones, Urine 1+ (Neg); Leukocyte Esterase, Urine 2+ (Neg); Nitrite, Urine Neg (Neg); Protein, Urine Neg (Neg); Specific Gravity, Urine 1.015 (1.003-1.022); Urobilinogen, Urine NORM (Normal)
[2024-05-03 19:06] LABS: Appearance, Urine Hazy (Clear); Bacteria Mod /hpf; Color, Urine Pale Yellow (P-Yellow); Red Blood Cells, Urine 0-2 /hpf (0-2); Squamous Epithelial Cells Rare /hpf (Few)
[2024-05-03 19:07] LABS: Mucus Light (0-Heavy); Yeast/Fungi Urine Few /hpf
== END ==
LOC: LAB SHORT 17:38 → LAB 17:38
PROVIDERS: Family Medicine
DX: N39.0 Urinary tract infection, site not specified (principal)
CPT/HCPCS: 81001; 87086

== ENCOUNTER → 2024-05-23 | Outpatient (CLI) | payer OTHER ==
[2024-05-23 15:18] LABS: BASOPHILS ABSOLUTE AUTO 0.05 K/mm3 (0.00-0.23); BASOPHILS PERCENT AUTO 1 % (0-2); EOSINOPHILS ABSOLUTE AUTO 0.14 K/mm3 (0.00-0.68); EOSINOPHILS PERCENT AUTO 2 % (0-6); Hematocrit 41.3 % (33.0-51.0); IMMATURE GRAN ABSOLUTE AUTO 0.03 K/mm3 (0.00-0.10); IMMATURE GRAN PERCENT AUTO 0 % (0-1); LYMPHOCYTES ABSOLUTE AUTO 3.58 K/mm3 (0.84-5.20); LYMPHOCYTES PERCENT AUTO 46 % (21-46); MONOCYTES ABSOLUTE AUTO 0.76 K/mm3 (0.16-1.47); MONOCYTES PERCENT AUTO 10 % (4-13); Mean Corpuscular HGB 28.5 pg (26.0-34.0); Mean Corpuscular HGB Conc 33.9 g/dL (31.5-36.5); Mean Corpuscular Volume 84 fL (80-100); NEUTROPHILS ABSOLUTE AUTO 3.25 K/mm3 (1.96-9.15); NEUTROPHILS PERCENT AUTO 42 % (41-73); Platelet Count 178 K/mm3 (150-400); RDW Coefficient Variation 13.1 % (11.7-14.2); RDW Standard Deviation 39.9 fL (35.1-46.3); Red Blood Cell Count 4.91 M/mm3 (3.80-5.20); White Blood Cell Count 7.81 K/mm3 (4.00-11.30)
[2024-05-23 15:23] LABS: Valproic Acid 93.9 ug/mL (50.0-100.0)
[2024-05-23 16:20] LABS: Albumin, Blood 3.5 g/dL (3.4-5.0); Bilirubin, Total 0.5 mg/dL (0.1-1.0); Creatinine, Blood 0.5 mg/dL (0.40-1.00); Globulin, Blood 3.5 g/dL (2.2-4.0); Potassium, Blood 4.3 mmol/L (3.5-5.5)
== END ==
LOC: LAB SHORT 12:17 → LAB 12:17
PROVIDERS: Family Medicine; Psychiatry & Neurology Psychiatry
DX: Z51.81 Encounter for therapeutic drug level monitoring (principal); E11.9 Type 2 diabetes mellitus without complications
CPT/HCPCS: 80053; 80164; 83036; 85025

== ENCOUNTER → 2024-06-13 | Outpatient (CLI) | payer OTHER ==
[2024-06-13 16:28] LABS: Appearance, Urine Clear (Clear); Bilirubin, Urine Neg (Neg); Blood, Urine Neg (Neg); Color, Urine Yellow (P-Yellow); Glucose Qualitative, Urine 4+ (Neg); Ketones, Urine 1+ (Neg); Leukocyte Esterase, Urine Neg (Neg); Nitrite, Urine Neg (Neg); Protein, Urine Neg (Neg); Source, Urine Voided; Urobilinogen, Urine NORM (Normal)
== END | disposition home or self-care (01) ==
LOC: LAB SHORT 15:34
PROVIDERS: Family Medicine
DX: N39.0 Urinary tract infection, site not specified (principal)
CPT/HCPCS: 81003

== ENCOUNTER → 2024-08-29 | Outpatient (CLI) | payer OTHER | END | disposition home or self-care (01) | LOC: LAB SHORT 11:34 → LAB 11:34 | DX: E11.9 Type 2 diabetes mellitus without complications (principal) | CPT/HCPCS: 83036 ==

== ENCOUNTER → 2024-10-02 | Outpatient (CLI) | payer OTHER ==
[2024-10-03 10:58] LABS: Source, Urine Clean Catch
[2024-10-03 11:34] LABS: Bilirubin, Urine Neg (Neg); Blood, Urine Neg (Neg); Glucose Qualitative, Urine 4+ (Neg); Ketones, Urine Neg (Neg); Leukocyte Esterase, Urine Neg (Neg); Nitrite, Urine Neg (Neg); Protein, Urine Neg (Neg); Specific Gravity, Urine 1.005 (1.003-1.022); Urobilinogen, Urine NORM (Normal)
[2024-10-03 11:35] LABS: Appearance, Urine Clear (Clear); Color, Urine Yellow (P-Yellow)
== END ==
LOC: LAB 16:15 → LAB SHORT 16:15 → LAB FUT 09-24 12:55
PROVIDERS: Student in an Organized Health Care Education/Training Program
DX: R39.15 Urgency of urination (principal)
CPT/HCPCS: 81003

== ENCOUNTER → 2025-01-03 | Outpatient (CLI) | payer OTHER ==
[2025-01-04 11:09] LABS: Source, Urine Clean Catch
[2025-01-04 12:18] LABS: Appearance, Urine Clear (Clear); Bilirubin, Urine Neg (Neg); Blood, Urine 1+ (Neg); Color, Urine Yellow (P-Yellow); Glucose Qualitative, Urine 4+ (Neg); Ketones, Urine Neg (Neg); Leukocyte Esterase, Urine 2+ (Neg); Nitrite, Urine Neg (Neg); Protein, Urine Neg (Neg); Urobilinogen, Urine NORM (Normal)
[2025-01-04 13:19] LABS: Bacteria Many /hpf; Red Blood Cells, Urine 0-2 /hpf (0-2); Squamous Epithelial Cells Rare /hpf (Few)
== END ==
LOC: LAB SHORT 14:00 → LAB 14:00 → LAB SHORT 01-04 11:06
PROVIDERS: Student in an Organized Health Care Education/Training Program
DX: N39.0 Urinary tract infection, site not specified (principal)
CPT/HCPCS: 81001; 87077; 87086; 87186

== ENCOUNTER 2025-01-30 14:30 | Inpatient (IN) | payer OTHER ==
[~2025-01-30] VITALS: Ht 162.6 cm; Wt 60.6 kg
[2025-01-30 15:39] LABS: BASOPHILS ABSOLUTE AUTO 0.04 K/mm3 (0.00-0.23); BASOPHILS PERCENT AUTO 0 % (0-2); EOSINOPHILS ABSOLUTE AUTO 0.03 K/mm3 (0.00-0.68); EOSINOPHILS PERCENT AUTO 0 % (0-6); Hematocrit 43.7 % (33.0-51.0); Hemoglobin 14.7 g/dL (11.5-16.0); IMMATURE GRAN PERCENT AUTO 1 % (0-1); LYMPHOCYTES ABSOLUTE AUTO 2.52 K/mm3 (0.84-5.20); LYMPHOCYTES PERCENT AUTO 16 % (21-46); MONOCYTES ABSOLUTE AUTO 1.59 K/mm3 (0.16-1.47); MONOCYTES PERCENT AUTO 10 % (4-13); Mean Corpuscular HGB 27.7 pg (26.0-34.0); Mean Corpuscular HGB Conc 33.6 g/dL (31.5-36.5); Mean Corpuscular Volume 83 fL (80-100); Mean Platelet Volume 8.6 fL (9.1-12.4); NEUTROPHILS ABSOLUTE AUTO 11.83 K/mm3 (1.96-9.15); NEUTROPHILS PERCENT AUTO 74 % (41-73); Platelet Count 216 K/mm3 (150-400); RDW Coefficient Variation 13.9 % (11.7-14.2); RDW Standard Deviation 41.5 fL (35.1-46.3); White Blood Cell Count 16.11 K/mm3 (4.00-11.30)
[2025-01-30 16:02] LABS: Albumin, Blood 3.4 g/dL (3.4-5.0); Albumin/Globulin Ratio 0.8 (0.8-1.8); Bilirubin, Total 0.5 mg/dL (0.1-1.0); Bun/Creatinine Ratio 23.7 (12.0-20.0); Calcium, Blood 9.5 mg/dL (8.5-10.1); Creatinine, Blood 0.51 mg/dL (0.40-1.00); Globulin, Blood 4.5 g/dL (2.2-4.0); Potassium, Blood 4.2 mmol/L (3.5-5.5); Total Protein, Blood 7.9 g/dL (6.4-8.2)
[2025-01-30] MEDS ORDERED: Lactated Ringer's 1,000 ML IV SCH (16:05)
[2025-01-30] MEDS ORDERED: Acetaminophen 500 MG Tab PO ONE (16:05)
[2025-01-30] MEDS ORDERED: Piperacillin/Tazobactam Sod 3.375 GM in NS 100 ML IV ONE (16:05)
[2025-01-30 16:12] LABS: Influenza A, PCR NEGATIVE (NEGATIVE); Influenza B, PCR NEGATIVE (NEGATIVE); Resp Syncytial Virus, PCR NEGATIVE (NEGATIVE); SARS-Cov-2 (COVID-19) PCR, MMC NEGATIVE (NEGATIVE)
[2025-01-30] MEDS ORDERED: NS 1,000 ML IV SCH ×2 (18:05→22:00)
[2025-01-30 19:28] LABS: Source, Urine Clean Catch
[2025-01-30 19:33] LABS: Appearance, Urine Clear (Clear); Bilirubin, Urine Neg (Neg); Blood, Urine 1+ (Neg); Color, Urine Yellow (P-Yellow); Glucose Qualitative, Urine 4+ (Neg); Ketones, Urine 1+ (Neg); Leukocyte Esterase, Urine Neg (Neg); Nitrite, Urine Neg (Neg); Protein, Urine Neg (Neg); Specific Gravity, Urine 1.005 (1.003-1.022); Urobilinogen, Urine NORM (Normal); pH, Urine 6.5 (5.0-8.0)
[2025-01-30 19:42] LABS: Bacteria Few /hpf; Red Blood Cells, Urine 0-2 /hpf (0-2); Squamous Epithelial Cells Rare /hpf (Few); White Blood Cells, Urine 0-2 /hpf (0-5)
[2025-01-30] MEDS ORDERED: CLOP75 PO (21:14)
[2025-01-30] MEDS ORDERED: ZYRTEC10 M2 PO (21:14)
[2025-01-30] MEDS ORDERED: LIPITOR80 MG PO (21:16)
[2025-01-30] MEDS ORDERED: FAMO40 PO (21:17)
[2025-01-30] MEDS ORDERED: METF500 PO (21:17)
[2025-01-30] MEDS ORDERED: K-TAB ER20 ME2 PO (21:18)
[2025-01-30] MEDS ORDERED: STEGLATRO5 MG PO (21:18)
[2025-01-30] MEDS ORDERED: MELA3 PO (21:20)
[2025-01-30] MEDS ORDERED: STIOLTO RESPIMAT4 G2 IH (21:21)
[2025-01-30] MEDS ORDERED: FLU VACC TS2024-25(6MOS UP)/PF 45 MCG/0.5 ML SYRINGE IM ONE (21:30)
[2025-01-30] MEDS ORDERED: Ondansetron 4 MG TAB PO PRN (21:35)
[2025-01-30] MEDS ORDERED: Albuterol 2.5 MG/3 ML VIAL INH PRN (21:45)
[2025-01-30] MEDS ORDERED: Atorvastatin 40 MG Tab PO SCH (22:00)
[2025-01-30] MEDS ORDERED: Nicotine 21 MG PATCH TOP SCH (22:00)
[2025-01-30] MEDS ORDERED: Insulin Regular 100 UNIT/ML 10ML Vial SC SCH (22:00)
[2025-01-30 22:18] LABS: C-REACTIVE PROTEIN, EXT RANGE 2.17 mg/dL (0.000-0.300)
[2025-01-30] MEDS ORDERED: CefTRIAXone Sodium 1,000 MG in NS 100 ML IV SCH (22:48)
[2025-01-30] MEDS ORDERED: Misc. Tablet PO SCH (22:57)
[2025-01-30 23:21] VITALS: BP 125/77
[2025-01-30] MEDS ORDERED: Gabapentin 300 MG Cap PO ONE (23:25)
[2025-01-30] MEDS ORDERED: Divalproex Sodium 500 MG TABCR PO ONE (23:25)
[2025-01-30] MEDS ORDERED: Famotidine 20 MG Tab PO ONE (23:25)
[2025-01-30] MEDS ORDERED: OLANZapine 10 MG Tab PO ONE (23:30)
[2025-01-30] MEDS ORDERED: Melatonin 3 MG Tab PO ONE (23:30)
[2025-01-30] MEDS ORDERED: Flonase 0.05% N16 GM (23:37)
[2025-01-31] MEDS ORDERED: OLAN5 PO (00:17)
[2025-01-31] MEDS ORDERED: Empagliflozin 10 MG TAB PO SCH (01:37)
[2025-01-31] MEDS ORDERED: Ipratropium/Albuterol SulF 2.5-0.5MG/3 ML Amp INH SCH ×2 (01:45→20:08)
--- NOTE | 2025-01-31 02:48 | NUR ---
ADMIT NOTE FOR 01/30/25 2310/ SHIFT SUMMARY REPORT WAS RECEIVED FROM THE ER. PT WAS BROUGHT DOWN ON A GURNEY AND TRANSFERRED OVER TO THE BED. PT WAS ORIENTED TO THE ROOM AND STAFF. PT ALERT ORIENTED TO SELF PLACE AND WHY SHES HERE BUT UNSURE OF DATE. SHES INC OF BLADDER PUREWICK INTACT DRAINING CLEAR YELLOW URINE. LUNG SOUNDS DIMINISHED. NO COUGH OR CONGESTION. C/O CHEST DISCOMFORT R/T PNEUMONIA. SHE REMAINS ON NS AT 100. VSS ON RA. REMAINS ON TELEMETRY AT SINUS TACH AT 104. NO BEHAVIORS THIS SHIFT. TOOK ALL OF HER MEDS WHOLE WITH WATER. SHE HASNT BEEN OUT OF BED ON THIS SHIFT BUT SHE STATED THAT SHE USUALLY USES A WALKER AND IS SBA ONLY. RESTING IN BED AT THIS TIME WITH CALL LIGHT IN REACH
[2025-01-31 04:52] VITALS: BP 117/78
[2025-01-31 05:37] LABS: BASOPHILS ABSOLUTE AUTO 0.02 K/mm3 (0.00-0.23); BASOPHILS PERCENT AUTO 0 % (0-2); EOSINOPHILS ABSOLUTE AUTO 0.08 K/mm3 (0.00-0.68); EOSINOPHILS PERCENT AUTO 1 % (0-6); Hematocrit 37.8 % (33.0-51.0); Hemoglobin 12.6 g/dL (11.5-16.0); IMMATURE GRAN ABSOLUTE AUTO 0.05 K/mm3 (0.00-0.10); IMMATURE GRAN PERCENT AUTO 0 % (0-1); LYMPHOCYTES ABSOLUTE AUTO 3.57 K/mm3 (0.84-5.20); LYMPHOCYTES PERCENT AUTO 26 % (21-46); MONOCYTES ABSOLUTE AUTO 1.66 K/mm3 (0.16-1.47); MONOCYTES PERCENT AUTO 12 % (4-13); Mean Corpuscular HGB 27.9 pg (26.0-34.0); Mean Corpuscular HGB Conc 33.3 g/dL (31.5-36.5); Mean Corpuscular Volume 84 fL (80-100); Mean Platelet Volume 8.6 fL (9.1-12.4); NEUTROPHILS ABSOLUTE AUTO 8.61 K/mm3 (1.96-9.15); NEUTROPHILS PERCENT AUTO 62 % (41-73); Platelet Count 212 K/mm3 (150-400); RDW Coefficient Variation 13.9 % (11.7-14.2); RDW Standard Deviation 42.3 fL (35.1-46.3); Red Blood Cell Count 4.52 M/mm3 (3.80-5.20); White Blood Cell Count 13.99 K/mm3 (4.00-11.30)
[2025-01-31 06:03] LABS: Albumin, Blood 2.6 g/dL (3.4-5.0); Albumin/Globulin Ratio 0.7 (0.8-1.8); Bilirubin, Total 0.7 mg/dL (0.1-1.0); Bun/Creatinine Ratio 20.3 (12.0-20.0); Calcium, Blood 8.6 mg/dL (8.5-10.1); Creatinine, Blood 0.44 mg/dL (0.40-1.00); Globulin, Blood 3.7 g/dL (2.2-4.0); Potassium, Blood 3.7 mmol/L (3.5-5.5); Total Protein, Blood 6.3 g/dL (6.4-8.2)
[2025-01-31 07:11] VITALS: BP 124/78
--- NOTE | 2025-01-31 07:57 | NUR ---
CALL MS HERNANDEZ C/O PAIN ALL OVER. T.O. FROM DR SALEEM FOR TYLENOL 650MG PO Q6HRS PRN. READ BACK DONE AND ORDER ENTERED INTO [employer].
[2025-01-31] MEDS ORDERED: Acetaminophen 325 MG TABLET PO PRN (08:00)
[2025-01-31] MEDS ORDERED: Enoxaparin 40 MG/0.4 ML SYR SC SCH (09:00)
[2025-01-31] MEDS ORDERED: Divalproex Sodium 500 MG TABCR PO SCH (09:00)
[2025-01-31] MEDS ORDERED: Gabapentin 300 MG Cap PO SCH (09:00)
[2025-01-31] MEDS ORDERED: Clopidogrel Bisulfate 75 MG Tab PO SCH (09:00)
[2025-01-31] MEDS ORDERED: Fluticasone 0.05% Nasal Spray SCH (09:00)
[2025-01-31] MEDS ORDERED: Azithromycin 250 MG Tab PO SCH (09:00)
[2025-01-31] MEDS ORDERED: Famotidine 20 MG Tab PO SCH (09:00)
[2025-01-31] MEDS ORDERED: Loratadine 10 MG Tab PO SCH (09:00)
[2025-01-31 12:55] VITALS: BP 122/105
[2025-01-31] MEDS ORDERED: FentaNYL Citrate 50 MCG/ML 2 ML Injection IV STA (13:50)
[2025-01-31] MEDS ORDERED: FentaNYL Citrate 50 MCG/ML 2 ML Injection IV PRN (14:00)
[2025-01-31 15:29] VITALS: BP 125/78
[2025-01-31] MEDS ORDERED: Insulin Human Lispro 100 Units/ML 3ML Syringe SC SCH (16:30)
--- NOTE | 2025-01-31 17:38 | NUR ---
SHIFT SUMMARY MS HERNANDEZ IS ORIENTATED TO SELF, PLACE, THAT SHE IS HERE FOR PNA, JANUARY 1926. SR/ST WITH [facility] ON TELEMETRY, NO CALLS FROM ENGRAVING PLATE MAKER. MOIST COUGH. C/O CHEST PAIN INCREASED ON COUGHING. TYLENOL INEFFECTIVE FOR PAIN RELIEF, VERY GOOD RELIEF DESCRIBED AFTER 25MCG FENTANYL. UP TO CHAIR, WEAK TRANSFER FROM BED TO CHAIR. USES WHEELCHAIR/WALKER AT BASELINE. CONTINUOUS PULSE OX IN THE 90S ON ROOM AIR. INCONTINENT OF CLEAR YELLOW URINE. IVF INFUSING. BED LOW, CALL LIGHT IN REACH, BED ALARM ON.
[2025-01-31 19:35] VITALS: BP 146/98
[2025-01-31] MEDS ORDERED: Melatonin 3 MG Tab PO SCH (21:00)
[2025-01-31] MEDS ORDERED: OLANZapine 10 MG Tab PO SCH (21:00)
[2025-01-31] MEDS ORDERED: GuaiFENesin 600 MG TabCR PO SCH (21:00)
[2025-02-01 00:02] VITALS: BP 134/87
[2025-02-01 03:54] VITALS: BP 147/92
--- NOTE | 2025-02-01 04:22 | NUR ---
SHIFT SUMMARY PT ALERT ORIENTED TO SELF AND PLACE ABLE TO VERBALIZE NEEDS. VSS ON RA SATTING AT 95%. C/O GENERALIZED BODY ACHES MEDICATED WITH TYLENOL WITH GOOD PAIN RELIEF. SHE HAS A PUREWICK ON WITH YELLOW URINE. REMAINS ON ZITHROMAX AND ROCEPHIN ORDERED FOR PNEUMONIA. NO COUGH OR CONGESTION. REMAINS ON A CONTINUOUS PULSE OX. FS DONE AC AND HS WAS 111. REMAINS ON TELEMETRY AT SINUS TACH AT 106. 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 RESTING IN BED AT THIS TIME WITH CALL LIGHT IN REACH
[2025-02-01 05:24] LABS: Hematocrit 36.4 % (33.0-51.0); Mean Corpuscular HGB 27.8 pg (26.0-34.0); Mean Corpuscular Volume 84 fL (80-100); Mean Platelet Volume 8.6 fL (9.1-12.4); Platelet Count 238 K/mm3 (150-400); RDW Coefficient Variation 13.7 % (11.7-14.2); RDW Standard Deviation 42.4 fL (35.1-46.3); Red Blood Cell Count 4.32 M/mm3 (3.80-5.20); White Blood Cell Count 9.96 K/mm3 (4.00-11.30)
[2025-02-01 05:44] LABS: Bun/Creatinine Ratio 25.4 (12.0-20.0); Creatinine, Blood 0.59 mg/dL (0.40-1.00); Potassium, Blood 3.8 mmol/L (3.5-5.5)
[2025-02-01 07:10] VITALS: BP 146/86
[2025-02-01] MEDS ORDERED: NS 250 ML IV PRN (07:20)
[2025-02-01] MEDS ORDERED: Acetaminophen650 M1 PO (11:32)
[2025-02-01] MEDS ORDERED: GUAI600T33 PO (11:33)
[2025-02-01] MEDS ORDERED: DOXY100 PO (11:36)
[2025-02-01 11:56] VITALS: BP 121/92
--- NOTE | 2025-02-01 16:00 | NUR ---
DISCHARGE NOTE MS HERNANDEZ IS READY FOR DISCHARGE FROM MEDICAL UNIT, AWAITING WHEELCHAIR TRANSPORT WHICH IS BOOKED FOR 1615HRS. PIV AND TELEMETRY REMOVED. DISCHARGE INSTRUCTIONS/REPORT GIVEN TO JEREMIAH NURSE AT [facility] OVER THE PHONE. MS HERNANDEZ HAS BEEN STABLE TODAY, SATS IN THE 90S. TELE SR/ST NO CALLS FROM FINANCIAL PROFESSIONAL, PAIN CONTROLLED WITH TYLENOL.
--- NOTE | 2025-02-01 17:11 | NUR ---
W/C TRANSPORT DISCHARGE TO [facility] AT 1630HRS. NO NEW QUESTIONS OR CONCERNS PRIOR TO DISCHARGE.
== END 2025-02-01 17:04 | disposition home or self-care (01) | DRG 871 ==
LOC: ER 14:30 → MEDS 21:29 → ERHOLD 21:29 → MEDS 23:08 → ENPENDDIS 02-01 11:24 → MEDS 02-01 17:04
PROVIDERS: Emergency Medicine; Internal Medicine; Student in an Organized Health Care Education/Training Program; ADMIT Student in an Organized Health Care Education/Training Program
DX: A41.9 Sepsis, unspecified organism (principal); J18.9 Pneumonia, unspecified organism; F17.210 Nicotine dependence, cigarettes, uncomplicated; F31.9 Bipolar disorder, unspecified; J44.9 Chronic obstructive pulmonary disease, unspecified; G40.909 Epilepsy, unspecified, not intractable, without status epilepticus; I10 Essential (primary) hypertension; M54.9 Dorsalgia, unspecified; G89.29 Other chronic pain; G43.909 Migraine, unspecified, not intractable, without status migrainosus; F43.10 Post-traumatic stress disorder, unspecified; K21.9 Gastro-esophageal reflux disease without esophagitis; E78.5 Hyperlipidemia, unspecified; F70 Mild intellectual disabilities; J30.2 Other seasonal allergic rhinitis; E11.40 Type 2 diabetes mellitus with diabetic neuropathy, unspecified; G47.00 Insomnia, unspecified; F40.01 Agoraphobia with panic disorder; Z87.448 Personal history of other diseases of urinary system; Z88.0 Allergy status to penicillin; Z88.8 Allergy status to other drugs, medicaments and biological substances; Z91.030 Bee allergy status; Z88.2 Allergy status to sulfonamides; Z79.899 Other long term (current) drug therapy; Z79.51 Long term (current) use of inhaled steroids; Z79.82 Long term (current) use of aspirin; Z79.2 Long term (current) use of antibiotics; Z79.891 Long term (current) use of opiate analgesic; Z90.49 Acquired absence of other specified parts of digestive tract; Z90.710 Acquired absence of both cervix and uterus; Z86.73 Personal history of transient ischemic attack (TIA), and cerebral infarction without residual deficits; Z90.89 Acquired absence of other organs; Z87.19 Personal history of other diseases of the digestive system; Z79.4 Long term (current) use of insulin; Z71.6 Tobacco abuse counseling
CPT/HCPCS: 0241U; 36415; 71046; 71260; 80048; 80053; 81001; 82947; 83605; 84145; 84484; 85025; 85027; 86140; 87040; 93005; 93010; 94640; 94664; 94760; 94762; A9270; J0696; J1650; J2543; J3010; J7030; J7120; Q9967

== ENCOUNTER 2025-05-21 17:20 | Emergency (ER) | payer OTHER ==
[~2025-05-21] VITALS: Ht 157.5 cm; Wt 65.8 kg
[~2025-05-21 17:20] MED LIST changes: +Acetaminophen650 M1 PO; +FAMO40 PO; +Flonase 0.05% N16 GM; +GUAI600T33 PO; +K-TAB ER20 ME2 PO; +LIPITOR80 MG PO; +MELA3 PO; +METF500 PO; +OLAN5 PO; +STEGLATRO5 MG PO; +STIOLTO RESPIMAT4 G2 IH; +ZYRTEC10 M2 PO
[2025-05-21 17:37] VITALS: BP 159/90
== END 2025-05-21 21:06 | disposition home or self-care (01) ==
LOC: ER 17:20
DX: T63.441A Toxic effect of venom of bees, accidental (unintentional), initial encounter (principal); J44.9 Chronic obstructive pulmonary disease, unspecified; F43.10 Post-traumatic stress disorder, unspecified; I10 Essential (primary) hypertension; K21.9 Gastro-esophageal reflux disease without esophagitis; E78.5 Hyperlipidemia, unspecified; F17.210 Nicotine dependence, cigarettes, uncomplicated; Z86.73 Personal history of transient ischemic attack (TIA), and cerebral infarction without residual deficits; Z79.899 Other long term (current) drug therapy; Z79.51 Long term (current) use of inhaled steroids; Z79.84 Long term (current) use of oral hypoglycemic drugs; Z79.02 Long term (current) use of antithrombotics/antiplatelets; Z88.0 Allergy status to penicillin; Z88.1 Allergy status to other antibiotic agents; Z88.6 Allergy status to analgesic agent; Z88.2 Allergy status to sulfonamides; Z88.5 Allergy status to narcotic agent; Z91.030 Bee allergy status; Z88.8 Allergy status to other drugs, medicaments and biological substances
CPT/HCPCS: 99283; A9270

== ENCOUNTER → 2025-07-31 | Outpatient (CLI) | payer OTHER ==
[2025-07-31 14:41] LABS: Bacterial Vaginosis PCR Negative (NEGATIVE); Candida glabrata-krusei, PCR NOT DETECTED (NOT DETECT)
[2025-07-31 14:43] LABS: Candida Group, PCR DETECTED (NOT DETECT)
== END ==
LOC: LAB 12:06 → LAB SHORT 12:06
PROVIDERS: Advanced Practice Midwife
DX: Z01.419 Encounter for gynecological examination (general) (routine) without abnormal findings (principal); N76.0 Acute vaginitis
CPT/HCPCS: 81515; 87624; G0145

== ENCOUNTER 2025-08-13 23:09 | Inpatient (IN) | payer OTHER ==
[~2025-08-13] VITALS: Ht 167.6 cm; Wt 71.9 kg
[2025-08-14] VITALS (17 sets, daily range): BP systolic 106–141; BP diastolic 67–87
[2025-08-14] MEDS ORDERED: Morphine Sulfate 4 MG/1 ML Injection IV ONE (00:25)
[2025-08-14 00:50] LABS: BASOPHILS ABSOLUTE AUTO 0.04 K/mm3 (0.00-0.23); BASOPHILS PERCENT AUTO 0 % (0-2); EOSINOPHILS ABSOLUTE AUTO 0.15 K/mm3 (0.00-0.68); EOSINOPHILS PERCENT AUTO 2 % (0-6); Hematocrit 42.1 % (33.0-51.0); Hemoglobin 14.2 g/dL (11.5-16.0); IMMATURE GRAN ABSOLUTE AUTO 0.03 K/mm3 (0.00-0.10); IMMATURE GRAN PERCENT AUTO 0 % (0-1); LYMPHOCYTES ABSOLUTE AUTO 3.93 K/mm3 (0.84-5.20); LYMPHOCYTES PERCENT AUTO 39 % (21-46); MONOCYTES ABSOLUTE AUTO 0.85 K/mm3 (0.16-1.47); MONOCYTES PERCENT AUTO 9 % (4-13); Mean Corpuscular HGB Conc 33.7 g/dL (31.5-36.5); Mean Corpuscular Volume 83 fL (80-100); NEUTROPHILS ABSOLUTE AUTO 5.04 K/mm3 (1.96-9.15); NEUTROPHILS PERCENT AUTO 50 % (41-73); NRBC ABSOLUTE 0.00 K/mm3 (0.00-0.02); NRBC Auto 0.0 /100 WBC (0.0-0.2); Platelet Count 193 K/mm3 (150-400); RDW Coefficient Variation 13.9 % (11.7-14.2); RDW Standard Deviation 42.2 fL (35.1-46.3)
[2025-08-14 01:09] LABS: Alanine Aminotransfer (ALT/SGP 51 U/L (12-78); Albumin, Blood 3.1 g/dL (3.4-5.0); Albumin/Globulin Ratio 0.8 (0.8-1.8); Anion Gap 10 mmol/L (3-11); Aspartate Aminotrans (AST/SGOT 21 U/L (12-37); Bilirubin, Total 0.3 mg/dL (0.1-1.0); Blood Urea Nitrogen 17 mg/dL (8-24); CO2, Blood 26 mmol/L (21-32); Calcium, Blood 9.5 mg/dL (8.5-10.1); Chloride, Blood 106 mmol/L (98-108); Creatinine, Blood 0.52 mg/dL (0.40-1.00); Ethanol (Alcohol), Blood, Med <3 mg/dL; Globulin, Blood 4.0 g/dL (2.2-4.0); Glucose, Blood 113 mg/dL (70-99); Potassium, Blood 4.1 mmol/L (3.5-5.5); Sodium, Blood 138 mmol/L (136-145); Total Protein, Blood 7.1 g/dL (6.4-8.2)
[2025-08-14] MEDS ORDERED: NS 1,000 ML IV ONE (02:45)
[2025-08-14] MEDS ORDERED: FLU VACC TS2025-26(6MOS UP)/PF 45 MCG/0.5 ML SYRINGE IM ONE (02:45)
[2025-08-14] MEDS ORDERED: Ondansetron HCl 2 MG / ML 2ML Vial IV PRN ×2 (02:45→15:15)
[2025-08-14] MEDS ORDERED: FentaNYL Citrate 50 MCG/ML 2 ML Injection IV PRN ×4 (02:45→16:40)
[2025-08-14] MEDS ORDERED: HYDROmorphone HCl/Pf 1MG SYR IV ONE (06:10)
[2025-08-14 07:02] LABS: BASOPHILS ABSOLUTE AUTO 0.04 K/mm3 (0.00-0.23); BASOPHILS PERCENT AUTO 1 % (0-2); EOSINOPHILS ABSOLUTE AUTO 0.11 K/mm3 (0.00-0.68); EOSINOPHILS PERCENT AUTO 1 % (0-6); Hematocrit 40.3 % (33.0-51.0); Hemoglobin 13.5 g/dL (11.5-16.0); IMMATURE GRAN ABSOLUTE AUTO 0.04 K/mm3 (0.00-0.10); IMMATURE GRAN PERCENT AUTO 1 % (0-1); LYMPHOCYTES ABSOLUTE AUTO 3.25 K/mm3 (0.84-5.20); LYMPHOCYTES PERCENT AUTO 41 % (21-46); MONOCYTES ABSOLUTE AUTO 0.78 K/mm3 (0.16-1.47); MONOCYTES PERCENT AUTO 10 % (4-13); Mean Corpuscular HGB Conc 33.5 g/dL (31.5-36.5); Mean Corpuscular Volume 82 fL (80-100); NEUTROPHILS ABSOLUTE AUTO 3.81 K/mm3 (1.96-9.15); NEUTROPHILS PERCENT AUTO 47 % (41-73); NRBC ABSOLUTE 0.00 K/mm3 (0.00-0.02); NRBC Auto 0.0 /100 WBC (0.0-0.2); Platelet Count 188 K/mm3 (150-400); RDW Coefficient Variation 14.1 % (11.7-14.2); RDW Standard Deviation 42.1 fL (35.1-46.3)
[2025-08-14] MEDS ORDERED: Albuterol HFA200 ACT/6.7 GM INH INH PRN (07:15)
[2025-08-14] MEDS ORDERED: Tiotropium Bromide 2.5 MCG/ACT MIST INHAL (10 ACT/4 GM) INH SCH (07:15)
[2025-08-14 07:23] LABS: Alanine Aminotransfer (ALT/SGP 361.0 U/L (12-78); Albumin, Blood 3.1 g/dL (3.4-5.0); Albumin/Globulin Ratio 0.8 (0.8-1.8); Anion Gap 8.0 mmol/L (3-11); Aspartate Aminotrans (AST/SGOT 443.0 U/L (12-37); Bilirubin, Total 1.1 mg/dL (0.1-1.0); Blood Urea Nitrogen 17.0 mg/dL (8-24); CO2, Blood 28.0 mmol/L (21-32); Calcium, Blood 9.3 mg/dL (8.5-10.1); Chloride, Blood 107.0 mmol/L (98-108); Creatinine, Blood 0.49 mg/dL (0.40-1.00); Globulin, Blood 3.9 g/dL (2.2-4.0); Glucose, Blood 115.0 mg/dL (70-99); Potassium, Blood 4.1 mmol/L (3.5-5.5); Sodium, Blood 139.0 mmol/L (136-145); Total Protein, Blood 7.0 g/dL (6.4-8.2)
[2025-08-14] MEDS ORDERED: Ketorolac Tromethamine 15mg Vial IV PRN (08:05)
[2025-08-14] MEDS ORDERED: Divalproex Sodium 500 MG TABCR PO SCH (09:00)
[2025-08-14] MEDS ORDERED: Fluticasone 0.05% Nasal Spray SCH (09:00)
--- NOTE | 2025-08-14 09:29 | NUR ---
am note this rn assumed care at 0700. vital signs stable. surgical status no tele. patient is alert and oriented x3-4. patient speech is mumbled and fast. patient is forgetful at times and will call for a question that was answered while this rn was in the room. patient reports pain at right hip and medicated per emar. patient uses call light. patient denies chest pain/pressure or shortness of breath. see shift assessment for further detials. jaswinder in to see patient and discussed going back for surgery. patient agrees to this. md discussed pain managment as well. plan for hip surgery today and to manage pain. patient verbalized understanding. this rn assisted the patient to call sister in the room to update.
[2025-08-14] MEDS ORDERED: Bupivacaine 0.25% Epi 1:200000 30 ML Vial ONE ×2 (13:48→13:57)
[2025-08-14] MEDS ORDERED: CeFAZolin Sodium 2,000 MG in NS 100 ML IV SCH ×2 (13:55→22:15)
[2025-08-14] MEDS ORDERED: Tranexamic Acid 100 ML IV SCH (13:55)
[2025-08-14] MEDS ORDERED: FentaNYL Citrate 50 MCG/ML 2 ML Injection ONE ×2 (13:57→15:14)
[2025-08-14] MEDS ORDERED: Sugammadex Sodium 200 MG/2ML SDV (100 MG/ML) ONE (13:58)
--- NOTE | 2025-08-14 14:09 | NUR ---
UPDATE patient left for or at approx [phone]
--- NOTE | 2025-08-14 14:10 | NUR ---
PRE OP NOTE PT A&OX4, VSS, RESTING QUIETLY IN BED. PT HAS NO COMPLAINTS. ANCEF ORDERED BY DR NOLAN DESPITE DOCUMENTED CEPHALOSPORIN ALLERGY- DR AWARE OF ALLERGY, SURGICAL TEAM AWARE WELL. Patient confirms NPO status and agrees with scheduled surgery. Pre-Op teaching done. Pt verbalizes understanding. PT TO DSU IN HOSPITAL BED. SURGICAL TEAM AWARE PLAVIX LAST DOSE IS UNKNOWN. PT LIVING FACITILY HAS NOT RETURNED MULTIPLE ATTEMPTS TO CONTACT AND OBTAIN THIS INFORMATION.
[2025-08-14] MEDS ORDERED: Dexamethasone Sod Phos 10 MG/ML 1ML VIAL ONE (14:48)
[2025-08-14] MEDS ORDERED: Ondansetron HCl 2 MG / ML 2ML Vial ONE (14:48)
[2025-08-14] MEDS ORDERED: Rocuronium Bromide 10 MG/ML 5ML Injection IV ONE (14:48)
[2025-08-14] MEDS ORDERED: Phenylephrine HCl 100 MCG/ML-NS 10MLSYR (1MG/10ML) ONE (14:48)
--- NOTE | 2025-08-14 15:55 | NUR ---
transfer of care this rn gave report to pebbles mar on surgical floor to go to rom 213 once done with procedure.
--- NOTE | 2025-08-14 16:29 | NUR ---
PT TO ROOM 213 FROM PACU. POST OP VS STARTED AND ARE STABLE. PT AWAKENS TO VERBAL THEN QUICKLY DRIFTS OFF TO SLEEP. AQUACELL DRESSING TO R HIP CDI. HISTORY OF R LEG HEMIPLEGIA SECONDARY TO CVA. SCDS ON. WATER PROVIED. WILL CONTINUE TO MONITOR.
[2025-08-14] MEDS ORDERED: HYDROcodone 5-APAP 325 TAB PO PRN (16:40)
[2025-08-15 02:58] VITALS: BP 126/77
--- NOTE | 2025-08-15 04:36 | NUR ---
NOC SUMMARY- PT PAIN MANAGED WELL. PT HAS BEEN RESTING COMFORTABLY. PT VOIDING VIA PUREWICK. PT TOLERATING PO INTAKE. CALLS APPROPIATELY. DRESSING C/D/I. CALL LIGHT IN REACH.
[2025-08-15 06:58] VITALS: BP 124/74
[2025-08-15] MEDS ORDERED: Insulin Regular 100 UNIT/ML 10ML Vial SC SCH (07:30)
[2025-08-15 10:56] LABS: BASOPHILS ABSOLUTE AUTO 0.03 K/mm3 (0.00-0.23); BASOPHILS PERCENT AUTO 0 % (0-2); EOSINOPHILS ABSOLUTE AUTO 0.01 K/mm3 (0.00-0.68); EOSINOPHILS PERCENT AUTO 0 % (0-6); Hematocrit 39.3 % (33.0-51.0); Hemoglobin 13.3 g/dL (11.5-16.0); IMMATURE GRAN ABSOLUTE AUTO 0.06 K/mm3 (0.00-0.10); IMMATURE GRAN PERCENT AUTO 1 % (0-1); LYMPHOCYTES ABSOLUTE AUTO 1.92 K/mm3 (0.84-5.20); LYMPHOCYTES PERCENT AUTO 18 % (21-46); MONOCYTES ABSOLUTE AUTO 0.83 K/mm3 (0.16-1.47); MONOCYTES PERCENT AUTO 8 % (4-13); Mean Corpuscular HGB Conc 33.8 g/dL (31.5-36.5); Mean Corpuscular Volume 81 fL (80-100); NEUTROPHILS ABSOLUTE AUTO 7.98 K/mm3 (1.96-9.15); NEUTROPHILS PERCENT AUTO 74 % (41-73); NRBC ABSOLUTE 0.00 K/mm3 (0.00-0.02); NRBC Auto 0.0 /100 WBC (0.0-0.2); RDW Coefficient Variation 13.6 % (11.7-14.2); RDW Standard Deviation 39.9 fL (35.1-46.3)
[2025-08-15] MEDS ORDERED: HYDR1TAB94 PO (14:53)
[2025-08-15 15:15] VITALS: BP 154/90
[2025-08-15 19:53] VITALS: BP 126/89
[2025-08-16 04:34] VITALS: BP 122/84
--- NOTE | 2025-08-16 04:47 | NUR ---
COMPOSITION FLOOR SETTER SUMMARY NO ACUTE CHANGES THIS SHIFT. PT POD 1 FOR R HIP NAILING. AQUACEL DRESSING TO R HIP C/D/I. PT'S PAIN HAS BEEN WELL CONTROLLED WITH PO MEDS TONIGHT. PT HAS NOT BEEN OUT OF BED TONIGHT BUT HAS SLEPT WELL. PT VERY HOPEFUL FOR DC BACK TO [facility] LATER TODAY. BED ALARM ON FOR SAFETY. VSS, NAVNEET.
[2025-08-16 05:27] LABS: Alanine Aminotransfer (ALT/SGP 415.0 U/L (12-78); Albumin, Blood 2.9 g/dL (3.4-5.0); Albumin/Globulin Ratio 0.8 (0.8-1.8); Anion Gap 5.0 mmol/L (3-11); Aspartate Aminotrans (AST/SGOT 236.0 U/L (12-37); Bilirubin, Total 0.4 mg/dL (0.1-1.0); Blood Urea Nitrogen 19.0 mg/dL (8-24); CO2, Blood 29.0 mmol/L (21-32); Calcium, Blood 9.0 mg/dL (8.5-10.1); Chloride, Blood 111.0 mmol/L (98-108); Creatinine, Blood 0.43 mg/dL (0.40-1.00); Globulin, Blood 3.5 g/dL (2.2-4.0); Glucose, Blood 114.0 mg/dL (70-99); Potassium, Blood 4.2 mmol/L (3.5-5.5); Sodium, Blood 141.0 mmol/L (136-145); Total Protein, Blood 6.4 g/dL (6.4-8.2)
[2025-08-16 07:18] VITALS: BP 129/77
--- NOTE | 2025-08-16 10:56 | NUR ---
DISCHARGE NOTE - PT WAS TRANSFERRED WITH GAIT BELT AND A STAND / PIVOT WITH 1 MAITRE D AND 1 RN TO WHEELCHAIR. SLIDE BOARD AND PERSONAL BELONGINGS RETURNED TO PT, CARE OF [facility] TO TRANPORT TO [facility]. PUREWICK AND IV REMOVED. PATIENT TOLERATED PROCEDURE WELL. TRANSFER PACKET, WITH SCRIPT FOR NORCO SIGNED BY PHYSICIAN, GIVEN TO [facility] POT[facility].
== END 2025-08-16 10:56 | disposition home health service (06) | DRG 481 ==
LOC: ER 23:09 → SURS 08-14 02:41 → PCU 08-14 02:41 → SURS 08-14 15:38
PROVIDERS: Emergency Medicine; Family Medicine; Orthopaedic Surgery Sports Medicine; ADMIT Internal Medicine
PROC: 0QH634Z Insertion of Internal Fixation Device into Right Upper Femur, Percutaneous Approach (ICD-10-PCS; principal; 2025-08-14 14:00)
DX: S72.011A Unspecified intracapsular fracture of right femur, initial encounter for closed fracture (principal); G40.109 Localization-related (focal) (partial) symptomatic epilepsy and epileptic syndromes with simple partial seizures, not intractable, without status epilepticus; I69.359 Hemiplegia and hemiparesis following cerebral infarction affecting unspecified side; F20.9 Schizophrenia, unspecified; E11.40 Type 2 diabetes mellitus with diabetic neuropathy, unspecified; K21.9 Gastro-esophageal reflux disease without esophagitis; E78.5 Hyperlipidemia, unspecified; F17.200 Nicotine dependence, unspecified, uncomplicated; F31.9 Bipolar disorder, unspecified; G43.909 Migraine, unspecified, not intractable, without status migrainosus; G89.29 Other chronic pain; M54.9 Dorsalgia, unspecified; J44.89 Other specified chronic obstructive pulmonary disease; F43.10 Post-traumatic stress disorder, unspecified; F70 Mild intellectual disabilities; I10 Essential (primary) hypertension; R10.31 Right lower quadrant pain; W18.39XA Other fall on same level, initial encounter; Y92.099 Unspecified place in other non-institutional residence as the place of occurrence of the external cause; Z88.6 Allergy status to analgesic agent; Z88.8 Allergy status to other drugs, medicaments and biological substances; Z88.2 Allergy status to sulfonamides; Z88.0 Allergy status to penicillin; Z88.1 Allergy status to other antibiotic agents; Z88.5 Allergy status to narcotic agent; Z79.84 Long term (current) use of oral hypoglycemic drugs; Z79.02 Long term (current) use of antithrombotics/antiplatelets
CPT/HCPCS: 36415; 72192; 73502; 73552; 80053; 80320; 82947; 83036; 83735; 83880; 85025; 94640; 94664; 94760; 96374; 97161; 97530; 99285-25; A9270; C1713; C1769; J0690; J1100; J1171; J1815; J1885; J2270; J2371; J2405; J2704; J3010; J7030

== ENCOUNTER → 2025-09-03 | Outpatient (CLI) | payer OTHER ==
[2025-09-03 14:55] LABS: Source, Urine Clean Catch
[2025-09-03 16:13] LABS: Bilirubin, Urine Neg (Neg); Color, Urine Yellow (P-Yellow); Glucose Qualitative, Urine 4+ (Neg); Ketones, Urine Neg (Neg); Leukocyte Esterase, Urine 1+ (Neg); Protein, Urine 1+ (Neg); Specific Gravity, Urine 1.010 (1.003-1.022); Urobilinogen, Urine NORM (Normal)
== END ==
LOC: LAB SHORT 14:53 → LAB 14:53
PROVIDERS: Physician Assistant
DX: N39.0 Urinary tract infection, site not specified (principal)
CPT/HCPCS: 81001; 87077; 87086; 87147; 87186

== ENCOUNTER → 2025-10-28 | Outpatient (CLI) | payer OTHER ==
[2025-10-28 15:25] LABS: Source, Urine Clean Catch
[2025-10-28 17:50] LABS: Bilirubin, Urine Neg (Neg); Glucose Qualitative, Urine 4+ (Neg); Ketones, Urine Neg (Neg); Leukocyte Esterase, Urine Neg (Neg); Protein, Urine Neg (Neg); Specific Gravity, Urine 1.005 (1.003-1.022); Urobilinogen, Urine NORM (Normal)
[2025-10-28 18:05] LABS: Color, Urine Pale Yellow (P-Yellow)
[2025-10-28 18:11] LABS: Red Blood Cells, Urine 0-2 /hpf (0-2); White Blood Cells, Urine 0-2 /hpf (0-5)
== END ==
LOC: LAB 10:45 → LAB SHORT 10:45
PROVIDERS: Physician Assistant
DX: N39.0 Urinary tract infection, site not specified (principal)
CPT/HCPCS: 81001; 87077; 87086; 87186